=== PATIENT | female | born 1975 | race Caucasian/White ===

== ENCOUNTER 2019-03-03 11:17 | Observation (INO) | payer BC, OTHER ==
--- NOTE | 2019-03-03 11:23 | EDM.PDOC ---
ED HPI GENERAL MEDICAL PROBLEM - General Stated Complaint: HIGH BP Time Seen by Provider: 03/03/19 11:21 - History of Present Illness INITIAL COMMENTS - FREE TEXT/NARRATIVE: HISTORY AND PHYSICAL: History of present illness: Patient 43-year-old white female who presents with a concern of hypertension she 's also had some palpitations she was seen in outpatient clinic in blood pressures noted be 170/100 and was referred here she states she had had episodic hypertension before during her divorce but this improved on its own without medication or other treatment. She states she has occasionally had some vague discomfort in her left arm she does not have it at this time. She denies chest pain or tightness At this time Review of systems: As per history of present illness and below otherwise all systems reviewed and negative. Past medical history: As per history of present illness and as reviewed below otherwise noncontributory. Surgical history: As per history of present illness and as reviewed below otherwise noncontributory. Social history: No reported history of drug or alcohol abuse. Family history: As per history of present illness and as reviewed below otherwise noncontributory. Physical exam: HEENT: Atraumatic, normocephalic, pupils reactive, negative for conjunctival pallor or scleral icterus, mucous membranes moist, throat clear, neck supple, nontender, trachea midline. Lungs: Rare end expiratory wheezing noted breath sounds equal bilaterally, chest nontender. Heart: S1S2, regular, negative for clicks, rubs, or JVD. Abdomen: Soft, nondistended, nontender. Negative for masses or hepatosplenomegaly. Negative for costovertebral tenderness. Pelvis: Stable nontender. Genitourinary: Deferred. Rectal: Deferred. Extremities: Atraumatic, negative for cords or calf pain. Neurovascular unremarkable. Neuro: Awake, alert, oriented. Cranial nerves II through XII unremarkable. Cerebellum unremarkable. Motor and sensory unremarkable throughout. Exam nonfocal. Diagnostics: CBC CMP troponin PT/INR chest x-ray EKG Therapeutics: IV O2 monitor aspirin 324 mg by mouth albuterol ipratropium nebulizer Impression: #1 palpitations #2 hypertension #3 mild bronchospasm Definitive disposition and diagnosis as appropriate pending reevaluation and review of above. - Related Data Allergies Allergy/AdvReac Type Severity Reaction Status Date / Time latex Allergy Rash Verified 03/03/19 11:29 Home Meds: Home Meds . 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 ED EXAM, GENERAL - Physical Exam Exam: See Below (dictation) Course - Vital Signs Last Recorded V/S: Last Vital Signs Temp Pulse 85 03/03/19 12:04 Resp 18 03/03/19 12:04 BP 130/91 H 03/03/19 12:04 Pulse Ox 97 03/03/19 12:04 - Orders/Labs/Meds Orders: Active Orders 24 hr Category Date Time Status Cardiac Monitoring [RC] . DIRECTED Care 03/03/19 11:24 Active EKG Documentation Completion [RC] STAT Care 03/03/19 11:24 Active Oxygen Therapy, ED [RC] ASDIRECTED Care 03/03/19 11:24 Active Pulse Oximetry [RC] ASDIRECTED Care 03/03/19 11:24 Active RT Aerosol Therapy [RC] ASDIRECTED Care 03/03/19 11:26 Active B-TYPE NATRIURETIC PEPTIDE,BNP [CHEM] Stat Lab 03/03/19 11:30 Received D-DIMER QUANTITATIVE [COAG] Stat Lab 03/03/19 12:25 Ordered Sodium Chloride 0.9% [Normal Saline] 1,000 ml Med 03/03/19 11:30 Active IV STAT Sodium Chloride 0.9% [Saline Flush] Med 03/03/19 11:24 Active 10 ml FLUSH ASDIRECTED PRN Sodium Chloride 0.9% [Saline Flush] Med 03/03/19 11:24 Active 2.5 ml FLUSH ASDIRECTED PRN Saline Lock Insert [OM.PC] Stat Oth 03/03/19 11:24 Ordered Medication Orders Sodium Chloride (Normal Saline) 1,000 mls @ 125 mls/hr IV STAT ALENA Last Admin: 03/03/19 11:59 Dose: 125 mls/hr Sodium Chloride (Saline Flush) 10 ml FLUSH ASDIRECTED PRN PRN Reason: Keep Vein Open Last Admin: 03/03/19 11:59 Dose: 10 ml Sodium Chloride (Saline Flush) 2.5 ml FLUSH ASDIRECTED PRN PRN Reason: Keep Vein Open Last Admin: 03/03/19 11:59 Dose: 2.5 ml Labs: Laboratory Tests 03/03/19 03/03/19 03/03/19 Range/Units 11:30 11:30 11:30 WBC 11.19 H (4.0-11.0) K/uL RBC 5.03 (4.30-5.90) M/uL Hgb 16.2 H (12.0-16.0) g/dL Hct 46.5 H (36.0-46.0) % MCV 92.4 (80.0-98.0) fL MCH 32.2 H (27.0-32.0) pg MCHC 34.8 (31.0-37.0) g/dL RDW Std Deviation 45.0 (28.0-62.0) fl RDW Coeff of Rom 13 (11.0-15.0) % Plt Count 225 (150-400) K/uL MPV 11.70 (7.40-12.00) fL Neut % (Auto) 58.4 (48.0-80.0) % Lymph % (Auto) 33.0 (16.0-40.0) % [place] % (Auto) 6.9 (0.0-15.0) % Eos % (Auto) 1.3 (0.0-7.0) % Baso % (Auto) 0.4 (0.0-1.5) % Neut # (Auto) 6.5 H (1.4-5.7) K/uL Lymph # (Auto) 3.7 H (0.6-2.4) K/uL [place] # (Auto) 0.8 (0.0-0.8) K/uL Eos # (Auto) 0.2 (0.0-0.7) K/uL Baso # (Auto) 0.0 (0.0-0.1) K/uL Nucleated RBC % 0.0 /100WBC Nucleated RBCs # 0 K/uL INR 0.92 Sodium 137 (136-145) mmol/L Potassium 4.1 (3.5-5.1) mmol/L Chloride 102 (98-107) mmol/L Carbon Dioxide 23.5 (21.0-32.0) mmol/L BUN 14 (7.0-18.0) mg/dL Creatinine 0.9 (0.6-1.0) mg/dL Est Cr Clr Drug Dosing 85.97 mL/min Estimated GFR (MDRD) > 60.0 ml/min Glucose 112 H (74-106) mg/dL Calcium 9.0 (8.5-10.1) mg/dL Total Bilirubin 0.2 (0.2-1.0) mg/dL AST 20 (15-37) IU/L ALT 37 (14-63) IU/L Alkaline Phosphatase 77 (46-116) U/L Troponin I < 0.050 (0.000-0.056) ng/mL Total Protein 7.3 (6.4-8.2) g/dL Albumin 3.6 (3.4-5.0) g/dL Globulin 3.7 (2.6-4.0) g/dL Albumin/Globulin Ratio 1.0 (0.9-1.6) Meds: Medications Generic Name Dose Route Start Last Admin Trade Name Freq PRN Reason Stop Dose Admin Sodium Chloride 1,000 mls @ 125 mls/hr 03/03/19 11:30 03/03/19 11:59 Normal Saline IV 125 mls/hr STAT ALENA Administration Sodium Chloride 10 ml 03/03/19 11:24 03/03/19 11:59 Saline Flush FLUSH 10 ml ASDIRECTED PRN Administration Keep Vein Open Sodium Chloride 2.5 ml 03/03/19 11:24 03/03/19 11:59 Saline Flush FLUSH 2.5 ml ASDIRECTED PRN Administration Keep Vein Open Discontinued Medications Generic Name Dose Route Start Last Admin Trade Name Freq PRN Reason Stop Dose Admin Albuterol/Ipratropium 3 ml 03/03/19 11:26 03/03/19 11:39 Duoneb 3.0-0.5 Mg/3 Ml NEB 03/03/19 11:27 3 ml ONETIME ONE Administration Aspirin 324 mg 03/03/19 11:24 03/03/19 11:57 Aspirin PO 03/03/19 11:25 324 mg ONETIME ONE Administration Departure - Departure Time of Disposition: 12:25 Disposition: Refer to Observation Condition: Good Clinical Impression: Palpitations, Bronchospasm - Discharge Information - My Orders Last 24 Hours: My Active Orders 03/03/19 11:24 Cardiac Monitoring [RC] . DIRECTED EKG Documentation Completion [RC] STAT Oxygen Therapy, ED [RC] ASDIRECTED Pulse Oximetry [RC] ASDIRECTED Sodium Chloride 0.9% [Saline Flush] 10 ml FLUSH ASDIRECTED PRN Sodium Chloride 0.9% [Saline Flush] 2.5 ml FLUSH ASDIRECTED PRN Saline Lock Insert [OM.PC] Stat 03/03/19 11:26 RT Aerosol Therapy [RC] ASDIRECTED 03/03/19 11:30 B-TYPE NATRIURETIC PEPTIDE,BNP [CHEM] Stat Sodium Chloride 0.9% [Normal Saline] 1,000 ml IV STAT 03/03/19 12:25 D-DIMER QUANTITATIVE [COAG] Stat - Assessment/Plan Last 24 Hours: My Active Orders 03/03/19 11:24 Cardiac Monitoring [RC] . DIRECTED EKG Documentation Completion [RC] STAT Oxygen Therapy, ED [RC] ASDIRECTED Pulse Oximetry [RC] ASDIRECTED Sodium Chloride 0.9% [Saline Flush] 10 ml FLUSH ASDIRECTED PRN Sodium Chloride 0.9% [Saline Flush] 2.5 ml FLUSH ASDIRECTED PRN Saline Lock Insert [OM.PC] Stat 03/03/19 11:26 RT Aerosol Therapy [RC] ASDIRECTED 03/03/19 11:30 B-TYPE NATRIURETIC PEPTIDE,BNP [CHEM] Stat Sodium Chloride 0.9% [Normal Saline] 1,000 ml IV STAT 03/03/19 12:25 D-DIMER QUANTITATIVE [COAG] Stat
[2019-03-03] MEDS ORDERED: Sodium Chloride 0.9% 2.5 ML Syringe FLUSH PRN (11:24)
[2019-03-03] MEDS ORDERED: Sodium Chloride 0.9% 10 ML Syringe FLUSH PRN (11:24)
[2019-03-03] MEDS ORDERED: Aspirin 81 MG Tab.Chew PO ONE (11:24)
[2019-03-03] MEDS ORDERED: Albuterol/Ipratropium 3.0-0.5 MG/3 ML Neb Soln NEB ONE (11:26)
[2019-03-03] MEDS ORDERED: Sodium Chloride 0.9% 1,000 ML IV SCH (11:30)
[2019-03-03 12:11] LABS: BLOOD UREA NITROGEN,BUN 14 mg/dL (7.0-18.0); CARBON DIOXIDE,CO2 23.5 mmol/L (21.0-32.0); CHLORIDE,CL 102 mmol/L (98-107); GLUCOSE RANDOM 112 mg/dL (74-106); POTASSIUM,K 4.1 mmol/L (3.5-5.1); SODIUM,NA 137 mmol/L (136-145)
--- NOTE | 2019-03-03 12:16 | CR ---
Chest: Frontal view of the chest was obtained. Study performed utilizing portable technique. Comparison: Prior chest x-ray of 01/07/18. Heart size and mediastinum are normal. Lungs are clear. Bony structures are grossly intact. Impression: Nothing acute is appreciated on portable chest x-ray. Diagnostic code #1 MTDD
--- NOTE | 2019-03-03 14:23 | PCM.HP.2 ---
H&P History of Present Illness - General Date of Service: 03/03/19 Admit Problem/Dx: Admission Diagnosis/Problem Admission Diagnosis/Problem Palpitations - History of Present Illness Initial Comments - Free Text/Narative: 43 yo female who presents with chest pain, palpitations and shortness of breath. She describes the pain as a pressure. She has reported intermittent palpitations over the past few days. Her blood pressure was noted to be 170s/ 90s. 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 She does report smoking but has no intentions of quitting. Chest Pain Score (Numeric/FACES): 3 - Related Data Allergies/Adverse Reactions: Allergies Allergy/AdvReac Type Severity Reaction Status Date / Time latex Allergy Rash Verified 03/03/19 15:40 Home Medications: Home Meds . 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: - Infectious Disease History Infectious Disease History: Reports: Chicken Pox - Past Surgical History Female Surgical History: Reports: Other (See Below) Other Female Surgeries/Procedures: bladder sling Dermatological Surgical History: Reports: Other (See Below) Social & Family History - Family History Family Medical History: Noncontributory Oncologic: Reports: Esophageal, Lung, Non-Hodgkin's Lymphoma, Ovarian - Tobacco Use Smoking Status *Q: Current Every Day Smoker Years of Tobacco use: 25 Packs/Tins Daily: 2 - Caffeine Use Caffeine Use: Reports: Coffee, Soda - Recreational Drug Use Recreational Drug Use: No H&P Review of Systems - Review of Systems: Review Of Systems: ROS reveals no pertinent complaints other than HPI. Exam - Exam Exam: See Below - Vital Signs Vital Signs: Last Vital Signs Temp Pulse 88 03/03/19 13:34 Resp 20 03/03/19 13:34 BP 153/90 H 03/03/19 13:34 Pulse Ox 97 03/03/19 13:34 Weight: 104.326 kg - Exam General: Alert, Oriented HEENT: Mucosa Moist & [place] Lungs: Clear to Auscultation, Normal Respiratory Effort Cardiovascular: Regular Rate, Regular Rhythm GI/Abdominal Exam: Soft, Non-Tender Extremities: Non-Tender, No Pedal Edema Skin: Warm, Dry, Intact - Patient Data Lab Results Last 24 hrs: Laboratory Results - last 24 hr 03/03/19 03/03/19 03/03/19 Range/Units 11:30 11:30 11:30 WBC 11.19 H (4.0-11.0) K/uL RBC 5.03 (4.30-5.90) M/uL Hgb 16.2 H (12.0-16.0) g/dL Hct 46.5 H (36.0-46.0) % MCV 92.4 (80.0-98.0) fL MCH 32.2 H (27.0-32.0) pg MCHC 34.8 (31.0-37.0) g/dL RDW Std Deviation 45.0 (28.0-62.0) fl RDW Coeff of Rom 13 (11.0-15.0) % Plt Count 225 (150-400) K/uL MPV 11.70 (7.40-12.00) fL Neut % (Auto) 58.4 (48.0-80.0) % Lymph % (Auto) 33.0 (16.0-40.0) % Esmeralda % (Auto) 6.9 (0.0-15.0) % Eos % (Auto) 1.3 (0.0-7.0) % Baso % (Auto) 0.4 (0.0-1.5) % Neut # (Auto) 6.5 H (1.4-5.7) K/uL Lymph # (Auto) 3.7 H (0.6-2.4) K/uL Esmeralda # (Auto) 0.8 (0.0-0.8) K/uL Eos # (Auto) 0.2 (0.0-0.7) K/uL Baso # (Auto) 0.0 (0.0-0.1) K/uL Nucleated RBC % 0.0 /100WBC Nucleated RBCs # 0 K/uL INR 0.92 D-Dimer, Quantitative (0.0-0.50) mg/L FEU Sodium 137 (136-145) mmol/L Potassium 4.1 (3.5-5.1) mmol/L Chloride 102 (98-107) mmol/L Carbon Dioxide 23.5 (21.0-32.0) mmol/L BUN 14 (7.0-18.0) mg/dL Creatinine 0.9 (0.6-1.0) mg/dL Est Cr Clr Drug Dosing 85.97 mL/min Estimated GFR (MDRD) > 60.0 ml/min Glucose 112 H (74-106) mg/dL Calcium 9.0 (8.5-10.1) mg/dL Total Bilirubin 0.2 (0.2-1.0) mg/dL AST 20 (15-37) IU/L ALT 37 (14-63) IU/L Alkaline Phosphatase 77 (46-116) U/L Troponin I < 0.050 (0.000-0.056) ng/mL B-Natriuretic Peptide (<100) PG/ML Total Protein 7.3 (6.4-8.2) g/dL Albumin 3.6 (3.4-5.0) g/dL Globulin 3.7 (2.6-4.0) g/dL Albumin/Globulin Ratio 1.0 (0.9-1.6) 03/03/19 03/03/19 Range/Units 11:30 11:30 WBC (4.0-11.0) K/uL RBC (4.30-5.90) M/uL Hgb (12.0-16.0) g/dL Hct (36.0-46.0) % MCV (80.0-98.0) fL MCH (27.0-32.0) pg MCHC (31.0-37.0) g/dL RDW Std Deviation (28.0-62.0) fl RDW Coeff of Rom (11.0-15.0) % Plt Count (150-400) K/uL MPV (7.40-12.00) fL Neut % (Auto) (48.0-80.0) % Lymph % (Auto) (16.0-40.0) % Esmeralda % (Auto) (0.0-15.0) % Eos % (Auto) (0.0-7.0) % Baso % (Auto) (0.0-1.5) % Neut # (Auto) (1.4-5.7) K/uL Lymph # (Auto) (0.6-2.4) K/uL Esmeralda # (Auto) (0.0-0.8) K/uL Eos # (Auto) (0.0-0.7) K/uL Baso # (Auto) (0.0-0.1) K/uL Nucleated RBC % /100WBC Nucleated RBCs # K/uL INR D-Dimer, Quantitative 0.45 (0.0-0.50) mg/L FEU Sodium (136-145) mmol/L Potassium (3.5-5.1) mmol/L Chloride (98-107) mmol/L Carbon Dioxide (21.0-32.0) mmol/L BUN (7.0-18.0) mg/dL Creatinine (0.6-1.0) mg/dL Est Cr Clr Drug Dosing mL/min Estimated GFR (MDRD) ml/min Glucose (74-106) mg/dL Calcium (8.5-10.1) mg/dL Total Bilirubin (0.2-1.0) mg/dL AST (15-37) IU/L ALT (14-63) IU/L Alkaline Phosphatase (46-116) U/L Troponin I (0.000-0.056) ng/mL B-Natriuretic Peptide 18 (<100) PG/ML Total Protein (6.4-8.2) g/dL Albumin (3.4-5.0) g/dL Globulin (2.6-4.0) g/dL Albumin/Globulin Ratio (0.9-1.6) Result Diagrams: 03/03/19 11:30 03/03/19 11:30 Problem List Initiated/Reviewed/Updated: Yes Orders Last 24hrs: Active Orders 24 hr Category Date Time Status Patient Status [ADT] Stat ADT 03/03/19 12:28 Active Cardiac Monitoring [RC] . DIRECTED Care 03/03/19 11:24 Active EKG Documentation Completion [RC] STAT Care 03/03/19 11:24 Active Oxygen Therapy, ED [RC] ASDIRECTED Care 03/03/19 11:24 Active Pulse Oximetry [RC] ASDIRECTED Care 03/03/19 11:24 Active RT Aerosol Therapy [RC] ASDIRECTED Care 03/03/19 11:26 Active Telemetry Monitoring [Cardiac Monitoring] [RC] . Care 03/03/19 13:33 Active DIRECTED Sodium Chloride 0.9% [Normal Saline] 1,000 ml Med 03/03/19 11:30 Active IV STAT Sodium Chloride 0.9% [Saline Flush] Med 03/03/19 11:24 Active 10 ml FLUSH ASDIRECTED PRN Sodium Chloride 0.9% [Saline Flush] Med 03/03/19 11:24 Active 2.5 ml FLUSH ASDIRECTED PRN Saline Lock Insert [OM.PC] Stat Oth 03/03/19 11:24 Ordered Medication Orders Sodium Chloride (Normal Saline) 1,000 mls @ 125 mls/hr IV STAT ALENA Last Admin: 03/03/19 11:59 Dose: 125 mls/hr Sodium Chloride (Saline Flush) 10 ml FLUSH ASDIRECTED PRN PRN Reason: Keep Vein Open Last Admin: 03/03/19 11:59 Dose: 10 ml Sodium Chloride (Saline Flush) 2.5 ml FLUSH ASDIRECTED PRN PRN Reason: Keep Vein Open Last Admin: 03/03/19 11:59 Dose: 2.5 ml Assessment/Plan Comment:: 43 yo female admitted with chest pain and palpitations. She was monitored overnight with no events on telemetry. She ruled out for acute coronary syndrome with negative serial cardiac enzymes and EKG. She was started on Metoprolol 25mg BID for better blood pressure control. She was given smoking cessation education but has no intentions of quitting. She is to follow up with Dr. Houston in residency clinic and was referred to outpatient stress testing and Zio patch.
[2019-03-03] MEDS ORDERED: Acetaminophen 325 MG Tab PO PRN (14:29)
[2019-03-03] MEDS: Metoprolol Tartrate 25 MG Tab PO SCH (15:01)
[2019-03-04] MEDS: Metoprolol Tartrate 25 MG Tab PO SCH (01:53)
== END 2019-03-04 11:50 | disposition home or self-care (01) ==
LOC: MW.ED 11:17 → MW.MS 12:28
PROVIDERS: ADMIT Internal Medicine; ATTEND Internal Medicine
DX: R00.2 Palpitations (principal); R07.89 Other chest pain; I10 Essential (primary) hypertension; F17.200 Nicotine dependence, unspecified, uncomplicated; Z91.040 Latex allergy status
CPT/HCPCS: 36415; 71045; 80053; 83880; 84484; 85025; 85379; 85610; 93005; 94640; 96360; 96361; 99285; A9270; G0378; J7040; J7620-GY

== ENCOUNTER 2019-03-06 13:20 | Emergency (ER) | payer BC ==
[2019-03-06] MEDS ORDERED: Sodium Chloride 0.9% 10 ML Syringe FLUSH PRN (13:27)
[2019-03-06] MEDS ORDERED: Sodium Chloride 0.9% 2.5 ML Syringe FLUSH PRN (13:27)
--- NOTE | 2019-03-06 13:32 | EDM.PDOC ---
ED HPI GENERAL MEDICAL PROBLEM - General Chief Complaint: Chest Pain Stated Complaint: CHEST DICOMFORT Time Seen by Provider: 03/06/19 13:24 - History of Present Illness INITIAL COMMENTS - FREE TEXT/NARRATIVE: HISTORY AND PHYSICAL: History of present illness: Patient's 43-year-old female presents with a concern of neck and left arm discomfort she was recently seen and admitted for palpitations/atypical chest pain she was put on metoprolol for elevated blood pressure she is currently on a Holter monitor. Her symptoms have improved since arrival. Review of systems: As per history of present illness and below otherwise all systems reviewed and negative. Past medical history: As per history of present illness and as reviewed below otherwise noncontributory. Surgical history: As per history of present illness and as reviewed below otherwise noncontributory. Social history: No reported history of drug or alcohol abuse. Family history: As per history of present illness and as reviewed below otherwise noncontributory. Physical exam: HEENT: Atraumatic, normocephalic, pupils reactive, negative for conjunctival pallor or scleral icterus, mucous membranes moist, throat clear, neck supple, nontender, trachea midline. Lungs: Clear to auscultation, breath sounds equal bilaterally, chest nontender. Heart: S1S2, regular, negative for clicks, rubs, or JVD. Abdomen: Soft, nondistended, nontender. Negative for masses or hepatosplenomegaly. Negative for costovertebral tenderness. Pelvis: Stable nontender. Genitourinary: Deferred. Rectal: Deferred. Extremities: Atraumatic, negative for cords or calf pain. Neurovascular unremarkable. Neuro: Awake, alert, oriented. Cranial nerves II through XII unremarkable. Cerebellum unremarkable. Motor and sensory unremarkable throughout. Exam nonfocal. Diagnostics: CBC CMP troponin PT/INR chest x-ray EKG CT brain Therapeutics: None Impression: #1 medical screening exam #2 history of hypertension #3 history of palpitations/ atypical chest pain Definitive disposition and diagnosis as appropriate pending reevaluation and review of above. 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 ED EXAM, GENERAL - Physical Exam Exam: See Below (See dictation) Course - Vital Signs Last Recorded V/S: Last Vital Signs Temp 36.1 C 03/06/19 13:28 Pulse 83 03/06/19 14:13 Resp 13 03/06/19 14:13 BP 156/106 H 03/06/19 14:13 Pulse Ox 95 03/06/19 14:13 - Orders/Labs/Meds Orders: Active Orders 24 hr Category Date Time Status Cardiac Monitoring [RC] . DIRECTED Care 03/06/19 13:27 Active EKG Documentation Completion [RC] STAT Care 03/06/19 13:27 Active Oxygen Therapy, ED [RC] ASDIRECTED Care 03/06/19 13:27 Active Chest 1V Frontal [CR] Stat Exams 03/06/19 13:27 Taken Head wo Cont [CT] Stat Exams 03/06/19 13:28 Taken COMPREHENSIVE METABOLIC PN,CMP [CHEM] Stat Lab 03/06/19 13:45 Received TROPONIN I [CHEM] Stat Lab 03/06/19 13:45 Received UA RFX DARI AND CULT IF INDIC [URIN] Stat Lab 03/06/19 14:15 Received Labs: Laboratory Tests 03/06/19 03/06/19 Range/Units 13:45 13:45 WBC 9.65 (4.0-11.0) K/uL RBC 4.78 (4.30-5.90) M/uL Hgb 15.1 (12.0-16.0) g/dL Hct 43.4 (36.0-46.0) % MCV 90.8 (80.0-98.0) fL MCH 31.6 (27.0-32.0) pg MCHC 34.8 (31.0-37.0) g/dL RDW Std Deviation 43.5 (28.0-62.0) fl RDW Coeff of Rom 13 (11.0-15.0) % Plt Count 205 (150-400) K/uL MPV 11.20 (7.40-12.00) fL Neut % (Auto) 57.0 (48.0-80.0) % Lymph % (Auto) 34.4 (16.0-40.0) % [place] % (Auto) 7.0 (0.0-15.0) % Eos % (Auto) 1.2 (0.0-7.0) % Baso % (Auto) 0.4 (0.0-1.5) % Neut # (Auto) 5.5 (1.4-5.7) K/uL Lymph # (Auto) 3.3 H (0.6-2.4) K/uL [place]rill # (Auto) 0.7 (0.0-0.8) K/uL Eos # (Auto) 0.1 (0.0-0.7) K/uL Baso # (Auto) 0.0 (0.0-0.1) K/uL Nucleated RBC % 0.0 /100WBC Nucleated RBCs # 0 K/uL INR 0.95 Meds: Medications Discontinued Medications Generic Name Dose Route Start Last Admin Trade Name Freq PRN Reason Stop Dose Admin Sodium Chloride 10 ml 03/06/19 13:27 Saline Flush FLUSH ASDIRECTED PRN Keep Vein Open Sodium Chloride 2.5 ml 03/06/19 13:27 Saline Flush FLUSH ASDIRECTED PRN Keep Vein Open Departure - Departure Time of Disposition: 14:28 Disposition: Home, Self-Care 01 Condition: Good Clinical Impression: Encounter for medical screening examination, Palpitations - Discharge Information Referrals: PCP,Unobtain [Primary Care Provider] - Forms: ED Department Discharge Additional Instructions: The following information is given to patients seen in the emergency department who are being discharged to home. This information is to outline your options for follow-up care. We provide all patients seen in our emergency department with a follow-up referral. The need for follow-up, as well as the timing and circumstances, are variable depending upon the specifics of your emergency department visit. If you don't have a primary care physician on staff, we will provide you with a referral. We always advise you to contact your personal physician following an emergency department visit to inform them of the circumstance of the visit and for follow-up with them and/or the need for any referrals to a consulting specialist. The emergency department will also refer you to a specialist when appropriate. This referral assures that you have the opportunity for followup care with a specialist. All of these measure are taken in an effort to provide you with optimal care, which includes your followup. Under all circumstances we always encourage you to contact your private physician who remains a resource for coordinating your care. When calling for followup care, please make the office aware that this follow-up is from your recent emergency room visit. If for any reason you are refused follow-up, please contact the [facility] emergency department at and asked to speak to the emergency department charge nurse. Continue current medications follow-up primary medical doctor as needed as discussed and return as needed as discussed - My Orders Last 24 Hours: My Active Orders 03/06/19 13:27 Cardiac Monitoring [RC] . DIRECTED EKG Documentation Completion [RC] STAT Oxygen Therapy, ED [RC] ASDIRECTED Chest 1V Frontal [CR] Stat 03/06/19 13:28 Head wo Cont [CT] Stat 03/06/19 13:45 COMPREHENSIVE METABOLIC PN,CMP [CHEM] Stat TROPONIN I [CHEM] Stat 03/06/19 14:15 UA RFX DARI AND CULT IF INDIC [URIN] Stat - Assessment/Plan Last 24 Hours: My Active Orders 03/06/19 13:27 Cardiac Monitoring [RC] . DIRECTED EKG Documentation Completion [RC] STAT Oxygen Therapy, ED [RC] ASDIRECTED Chest 1V Frontal [CR] Stat 03/06/19 13:28 Head wo Cont [CT] Stat 03/06/19 13:45 COMPREHENSIVE METABOLIC PN,CMP [CHEM] Stat TROPONIN I [CHEM] Stat 03/06/19 14:15 UA RFX DARI AND CULT IF INDIC [URIN] Stat
[2019-03-06 14:23] LABS: BLOOD UREA NITROGEN,BUN 16 mg/dL (7.0-18.0); CARBON DIOXIDE,CO2 25.3 mmol/L (21.0-32.0); CHLORIDE,CL 103 mmol/L (98-107); GLUCOSE RANDOM 128 mg/dL (74-106); POTASSIUM,K 3.6 mmol/L (3.5-5.1); SODIUM,NA 140 mmol/L (136-145)
--- NOTE | 2019-03-06 14:32 | CR ---
Chest: Frontal view of the chest was obtained. Comparison: Prior chest x-ray of 03/03/19. Heart size and mediastinum are normal. Lungs are clear. Bony structures are grossly intact. Impression: Nothing acute is seen on frontal chest x-ray. Diagnostic code #1 MTDD
--- NOTE | 2019-03-06 14:33 | CT ---
Head CT Technique: Multiple axial sections through the brain were obtained. Intravenous contrast was not utilized. Comparison: No prior intracranial imaging is available. Findings: Ventricles along with basal cisterns and sulci over the convexities appear within normal limits for the patient's age. No abnormal parenchymal densities are seen. No evidence of intracranial hemorrhage. No midline shift or mass effect is seen. Bone window settings were reviewed which shows no acute calvarial abnormality. Visualized sinuses are clear. No acute calvarial abnormality is seen. Impression: Nothing acute is appreciated on noncontrast head CT exam. Diagnostic code #1 MTDD
== END 2019-03-06 15:32 | disposition home or self-care (01) ==
LOC: MW.ED 13:20
DX: R00.2 Palpitations (principal); I10 Essential (primary) hypertension; M79.602 Pain in left arm; M54.2 Cervicalgia; Z91.040 Latex allergy status
CPT/HCPCS: 36415; 70450; 70450-26; 71045; 71045-26; 80053; 81003; 84484; 85025; 85610; 93005; 99284-25

== ENCOUNTER 2019-06-16 10:01 | Emergency (ER) | payer BC ==
[2019-06-16] MEDS ORDERED: Sodium Chloride 0.9% 1,000 ML IV ONE (10:21)
[2019-06-16] MEDS ORDERED: Ondansetron 4 MG/2 ML SDV IVPUSH ONE (10:21)
--- NOTE | 2019-06-16 11:06 | EDM.PDOC ---
ED HPI GENERAL MEDICAL PROBLEM - General Chief Complaint: POURER METAL Problem Stated Complaint: VOMITTING PAST 5 DAYS. APPROX 9 WKS PREG. Time Seen by Provider: 06/16/19 10:18 Source of Information: Reports: Patient History Limitations: Reports: No Limitations - History of Present Illness INITIAL COMMENTS - FREE TEXT/NARRATIVE: HISTORY AND PHYSICAL: History of present illness: Patient is a 43-year-old female who presents to the emergency room with complaints of nausea and vomiting in . She states she has not been able to keep much down over the past 4 days. Patient denies any fever, chills, headache, change in vision, syncope or near syncope. Denies any chest pain, back pain, shortness of breath or cough. Denies any abdominal pain, nausea, vomiting, diarrhea, constipation or dysuria. Denies any vaginal bleeding, discharge or cramping. Currently 9 weeks gestation. Has not noted any blood in urine or stool. States Dr Brown has confirmed IUP with transvaginal US, has no related concerns other than the vomiting. , P: 2. History of hyperemesis gravidarum Review of systems: As per history of present illness and below otherwise all systems reviewed and negative. Past medical history: As per history of present illness and as reviewed below otherwise noncontributory. Surgical history: As per history of present illness and as reviewed below otherwise noncontributory. Social history: See social history for further information Family history: As per history of present illness and as reviewed below otherwise noncontributory. Physical exam: General: Well-developed and well-nourished 43-year-old female. Alert and oriented. Nontoxic-appearing and in no acute distress. HEENT: Atraumatic, normocephalic, pupils equal and reactive bilaterally, negative for conjunctival pallor or scleral icterus, mucous membranes moist, TMs normal bilaterally, throat clear, neck supple, nontender, trachea midline. No drooling or trismus noted. No meningeal signs. No hot potato voice noted. Lungs: Clear to auscultation, breath sounds equal bilaterally, chest nontender. Heart: S1S2, regular rate and rhythm without overt murmur Abdomen: Soft, nondistended, nontender. Negative for masses or hepatosplenomegaly. Negative for costovertebral tenderness. Pelvis: Stable nontender. Skin: Intact, warm, dry. No lesions or rashes noted. Extremities: Atraumatic, moves all extremities per self without difficulty or deficits, negative for cords or calf pain. Neurovascular unremarkable. Neuro: Awake, alert, oriented. Cranial nerves II through XII unremarkable. Cerebellum unremarkable. Motor and sensory unremarkable throughout. Exam nonfocal. Notes: No vomiting while here in the ED. VSS. Lab work is unremarkable with the exception of an early UTI. We will treat this. She does have an appointment next week with Dr. Brown for POURER METAL follow-up. We will give her Zofran for home as she felt this immensely improved her symptoms while here. Supportive care measures were reviewed and discussed. Voices understanding and is agreeable to plan of care. Denies any further questions or concerns at this time. Diagnostics: CBC, CMP, UA, hCG U Therapeutics: IV fluid, Zofran Prescription: Zofran Impression: Nausea and vomiting in UTI Plan: 1. Please start and/or continue to take your vitamin with folic acid once daily. 2. Small frequent sips of fluids and use the Zofran as needed 3. Tylenol as needed for pain management. 4. Follow up with your POURER METAL as we discussed. Return to the ED as needed and as discussed. Definitive disposition and diagnosis as appropriate pending reevaluation and review of above. - Related Data Allergies Allergy/AdvReac Type Severity Reaction Status Date / Time latex Allergy Rash Verified 03/06/19 13:31 Home Meds: Home Meds Metoprolol Tartrate [Lopressor] 25 mg PO Q12H #60 tablet 03/04/19 [Rx] Ondansetron [Zofran ODT] 4 mg PO Q6H PRN #15 tab.dis 06/16/19 [Rx] cephALEXin [Keflex] 500 mg PO BID 7 Days #14 cap 06/16/19 [Rx] Past Medical History - Past Health History Medical/Surgical History: Denies Medical/Surgical History HEENT History: Reports: None Cardiovascular History: Reports: None Respiratory History: Reports: Bronchitis, Recurrent Gastrointestinal History: Reports: None Genitourinary History: Reports: Other (See Below) Other Genitourinary History: Bladder Hamm[place], 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 POURER METAL History: Reports: 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 History: Reports: None Neurological History: Reports: None Psychiatric History: Reports: None Endocrine/Metabolic History: Reports: None Hematologic History: Reports: None Immunologic History: Reports: None Oncologic (Cancer) History: Reports: None Dermatologic History: Reports: None - Infectious Disease History Infectious Disease History: Reports: Chicken Pox - Past Surgical History Female Surgical History: Reports: Other (See Below) Other Female Surgeries/Procedures: bladder sling Dermatological Surgical History: Reports: Other (See Below) Social & Family History - Family History Family Medical History: Noncontributory Oncologic: Reports: Esophageal, Lung, Non-Hodgkin's Lymphoma, Ovarian - Caffeine Use Caffeine Use: Reports: Coffee, Soda ED ROS GENERAL - Review of Systems Review Of Systems: Comprehensive ROS is negative, except as noted in HPI. ED EXAM - Physical Exam Exam: See Below (SEe dictation) Course - Vital Signs Last Recorded V/S: Last Vital Signs Temp 94.4 F L 06/16/19 11:28 Pulse 83 06/16/19 11:28 Resp 20 06/16/19 11:28 BP 155/97 H 06/16/19 11:28 Pulse Ox 99 06/16/19 11:28 - Orders/Labs/Meds Labs: Laboratory Tests 06/16/19 06/16/19 06/16/19 Range/Units 11:03 11:34 11:34 WBC 11.16 H (4.0-11.0) K/uL RBC 5.01 (4.30-5.90) M/uL Hgb 15.9 (12.0-16.0) g/dL Hct 44.5 (36.0-46.0) % MCV 88.8 (80.0-98.0) fL MCH 31.7 (27.0-32.0) pg MCHC 35.7 (31.0-37.0) g/dL RDW Std Deviation 42.6 (28.0-62.0) fl RDW Coeff of Rom 13 (11.0-15.0) % Plt Count 221 (150-400) K/uL MPV 11.70 (7.40-12.00) fL Neut % (Auto) 66.2 (48.0-80.0) % Lymph % (Auto) 24.7 (16.0-40.0) % [place] % (Auto) 7.8 (0.0-15.0) % Eos % (Auto) 0.9 (0.0-7.0) % Baso % (Auto) 0.4 (0.0-1.5) % Neut # (Auto) 7.4 H (1.4-5.7) K/uL Lymph # (Auto) 2.8 H (0.6-2.4) K/uL [place] # (Auto) 0.9 H (0.0-0.8) K/uL Eos # (Auto) 0.1 (0.0-0.7) K/uL Baso # (Auto) 0.1 (0.0-0.1) K/uL Nucleated RBC % 0.0 /100WBC Nucleated RBCs # 0 K/uL Sodium 137 (136-145) mmol/L Potassium 4.0 (3.5-5.1) mmol/L Chloride 100 (98-107) mmol/L Carbon Dioxide 23.7 (21.0-32.0) mmol/L BUN 11 (7.0-18.0) mg/dL Creatinine 0.7 (0.6-1.0) mg/dL Est Cr Clr Drug Dosing 114.37 mL/min Estimated GFR (MDRD) > 60.0 ml/min Glucose 98 (74-106) mg/dL Calcium 9.2 (8.5-10.1) mg/dL Total Bilirubin 0.4 (0.2-1.0) mg/dL AST 25 (15-37) IU/L ALT 43 (14-63) IU/L Alkaline Phosphatase 71 (46-116) U/L Total Protein 7.4 (6.4-8.2) g/dL Albumin 3.4 (3.4-5.0) g/dL Globulin 4.0 (2.6-4.0) g/dL Albumin/Globulin Ratio 0.9 (0.9-1.6) Urine Color YELLOW Urine Appearance CLEAR Urine pH 5.5 (5.0-8.0) Ur Specific [place] >= 1.030 (1.001-1.035) Urine Protein NEGATIVE (NEGATIVE) mg/dL Urine Glucose (UA) NEGATIVE (NEGATIVE) mg/dL Urine Ketones NEGATIVE (NEGATIVE) mg/dL Urine Occult Blood NEGATIVE (NEGATIVE) Urine Nitrite NEGATIVE (NEGATIVE) Urine Bilirubin NEGATIVE (NEGATIVE) Urine Urobilinogen 0.2 (<2.0) EU/dL Ur Leukocyte Esterase NEGATIVE (NEGATIVE) Urine RBC NONE SEEN (0-2/HPF) Urine WBC 0-1 (0-5/HPF) Ur Epithelial Cells MODERATE (NONE-FEW) Urine Bacteria 1+ H (NEGATIVE) Urine Mucus MODERATE (NONE-MOD) Meds: Medications Discontinued Medications Generic Name Dose Route Start Last Admin Trade Name Freq PRN Reason Stop Dose Admin Sodium Chloride 1,000 mls @ 999 mls/hr 06/16/19 10:21 06/16/19 11:36 Normal Saline IV 06/16/19 11:21 999 mls/hr STAT ONE Administration Ondansetron HCl 4 mg 06/16/19 10:21 06/16/19 11:36 Zofran IVPUSH 06/16/19 10:22 4 mg ONETIME ONE Administration Departure - Departure Time of Disposition: 12:45 Disposition: Home, Self-Care 01 Clinical Impression: Nausea/vomiting in Urinary tract infection Qualifiers: Urinary tract infection type: acute cystitis Hematuria presence: without hematuria Qualified Code(s): N30.00 - Acute cystitis without hematuria - Discharge Information Prescriptions: cephALEXin [Keflex] 500 mg PO BID 7 Days #14 cap Ondansetron [Zofran ODT] 4 mg PO Q6H PRN #15 tab.dis PRN Reason: Nausea Referrals: Choco Brown MD [Primary Care Provider] - Forms: ED Department Discharge Additional Instructions: The following information is given to patients seen in the emergency department who are being discharged to home. This information is to outline your options for follow-up care. We provide all patients seen in our emergency department with a follow-up referral. The need for follow-up, as well as the timing and circumstances, are variable depending upon the specifics of your emergency department visit. If you don't have a primary care physician on staff, we will provide you with a referral. We always advise you to contact your personal physician following an emergency department visit to inform them of the circumstance of the visit and for follow-up with them and/or the need for any referrals to a consulting specialist. The emergency department will also refer you to a specialist when appropriate. This referral assures that you have the opportunity for follow-up care with a specialist. All of these measure are taken in an effort to provide you with optimal care, which includes your follow-up. Under all circumstances we always encourage you to contact your private physician who remains a resource for coordinating your care. When calling for follow-up care, please make the office aware that this follow-up is from your recent emergency room visit. If for any reason you are refused follow-up, please contact the [facility] Emergency Department at and asked to speak to the emergency department charge nurse. [facility] [address] [place] [id number] [facility] [address] [place] [address] 1. Please start and/or continue to take your vitamin with folic acid once daily. 2. Small frequent sips of fluids and use the Zofran as needed 3. Tylenol as needed for pain management. 4. Follow up with your POURER METAL as we discussed. Return to the ED as needed and as discussed. Sepsis Event Note - Focused Exam Vital Signs: Vital Signs Temp Pulse Resp BP Pulse Ox 06/16/19 11:28 94.4 F L 83 20 155/97 H 99 Date Exam was Performed: 06/16/19 Time Exam was Performed: 12:41
[2019-06-16 12:13] LABS: BLOOD UREA NITROGEN,BUN 11 mg/dL (7.0-18.0); CARBON DIOXIDE,CO2 23.7 mmol/L (21.0-32.0); CHLORIDE,CL 100 mmol/L (98-107); GLUCOSE RANDOM 98 mg/dL (74-106); SODIUM,NA 137 mmol/L (136-145)
== END 2019-06-16 12:56 | disposition home or self-care (01) ==
LOC: MW.ED 10:01
DX: O23.11 Infections of bladder in pregnancy, first trimester (principal); O09.521 Supervision of elderly multigravida, first trimester; Z3A.09 9 weeks gestation of pregnancy; Z91.040 Latex allergy status
CPT/HCPCS: 36415; 80053; 81001; 85025; 96361; 96374; 99284; J2405; J7030

== ENCOUNTER 2019-07-05 15:27 | Emergency (ER) | payer BC ==
[2019-07-05] MEDS ORDERED: Ondansetron 4 MG/2 ML SDV IVPUSH ONE (16:12)
[2019-07-05] MEDS ORDERED: Sodium Chloride 0.9% 1,000 ML IV ONE (16:12)
--- NOTE | 2019-07-05 16:18 | EDM.PDOC ---
ED HPI GENERAL MEDICAL PROBLEM - General Chief Complaint: Genitourinary Problem Stated Complaint: POSSIBLE UTI Time Seen by Provider: 07/05/19 15:42 Source of Information: Reports: Patient History Limitations: Reports: No Limitations - History of Present Illness INITIAL COMMENTS - FREE TEXT/NARRATIVE: HISTORY AND PHYSICAL: History of present illness: Patient is a 43-year-old female who presents to the ED today for concern of possible urinary tract infection. Patient states she was diagnosed with a urinary tract infection approximately 2 weeks ago and was given an antibiotic for it in the ED. Patient states at that time she was not symptomatic. Patient states she finished the antibiotic but started having bladder spasms and pain yesterday. Patient states she is 14 weeks in gestation and sees Dr. Brown and has had ultrasounds confirming baby in the uterus and heartbeat. Patient states she just saw him 2 to 3 weeks ago and that everything looked okay at that time. Patient denies any vaginal bleeding or change in discharge. Patient states when she goes to urinate she has pain in her bladder. Patient states she has had urinary tract infection in the past which had similar symptoms. Patient states she has a history of hyperemesis gravidarum during this and is been on Zofran but has been vomiting since onset of the bladder spasms and has had a small amount of water today. Patient denies any other symptoms or concerns. Patient denies fever, chills, chest pain, shortness of breath, or cough. Denies headache, neck stiff ness, change in vision, syncope, or near syncope. Denies nausea, vomiting, abdominal pain, diarrhea, constipation, or dysuria. Has not noted any blood in urine or stool. Review of systems: As per history of present illness and below otherwise all systems reviewed and negative. Past medical history: As per history of present illness and as reviewed below otherwise noncontributory. Surgical history: As per history of present illness and as reviewed below otherwise noncontributory. Social history: See social history for further information Family history: As per history of present illness and as reviewed below otherwise noncontributory. Physical exam: General: Patient is alert, oriented, and in no acute distress. Patient sitting comfortably on exam table. HEENT: Atraumatic, normocephalic, pupils equal and reactive bilaterally, negative for conjunctival pallor or scleral icterus, mucous membranes moist, TMs normal bilaterally, throat clear, neck supple, nontender, trachea midline. No drooling or trismus noted. No meningeal signs. No hot potato voice noted. Lungs: Clear to auscultation, breath sounds equal bilaterally, chest nontender. Heart: S1S2, regular rate and rhythm without overt murmur Abdomen: Soft, nondistended, nontender. Negative for masses or hepatosplenomegaly. Negative for costovertebral tenderness. Pelvis: Stable nontender. Genitourinary: Deferred. Rectal: Deferred. Skin: Intact, warm, dry. No lesions or rashes noted. Extremities: Atraumatic, negative for cords or calf pain. Neurovascular unremarkable. Neuro: Awake, alert, oriented. Cranial nerves II through XII unremarkable. Cerebellum unremarkable. Motor and sensory unremarkable throughout. Exam nonfocal. Notes: Patient was seen in the ED on 06/16/2019 and was given Keflex for urinary tract infection. Urine culture from this visit shows mixed taj. Patient able to tolerate p.o. intake in the ED today and no episodes of emisis in ED today. Voices understanding and is agreeable to plan of care. Denies any further questions or concerns at this time. Diagnostics: UA, Uhcg, CBC, CMP Therapeutics: NS, Zofran Prescription: Macrobid Impression: Urinary Tract Infection Nausea and vomiting in Plan: 1. Take medication as prescribed. Encourage small but frequent sips of fluid to prevent dehydration. 2. You can take Tylenol as directed for pain and discomfort. This is safe to use in . 3. Follow-up with your OBGYN provider as discussed. Return to the ED as needed and as discussed. Definitive disposition and diagnosis as appropriate pending reevaluation and review of above. bladder Pain Score (Numeric/FACES): 4 - Related Data Allergies Allergy/AdvReac Type Severity Reaction Status Date / Time latex Allergy Rash Verified 03/06/19 13:31 Home Meds: Home Meds Metoprolol Tartrate [Lopressor] 25 mg PO Q12H #60 tablet 03/04/19 [Rx] Ondansetron [Zofran ODT] 4 mg PO Q6H PRN #15 tab.dis 06/16/19 [Rx] Nitrofurantoin Monohyd/M-Cryst [Macrobid 100 mg Capsule] 100 mg PO BID 5 Days # 10 capsule 07/05/19 [Rx] [id number]/Iron Fumarate/FA/DSS [ 19 Tablet] 1 tab PO DAILY 07/05/19 [ History] Past Medical History - Past Health History Medical/Surgical History: Denies Medical/Surgical History HEENT History: Reports: None Cardiovascular History: Reports: None Respiratory History: Reports: Bronchitis, Recurrent Gastrointestinal History: Reports: None Genitourinary History: Reports: Other (See Below) Other Genitourinary History: Bladder Hammock, 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: 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 History: Reports: None Neurological History: Reports: None Psychiatric History: Reports: None Endocrine/Metabolic History: Reports: None Hematologic History: Reports: None Immunologic History: Reports: None Oncologic (Cancer) History: Reports: None Dermatologic History: Reports: None - Infectious Disease History Infectious Disease History: Reports: Chicken Pox - Past Surgical History Head Surgeries/Procedures: Reports: None Female Surgical History: Reports: Other (See Below) Other Female Surgeries/Procedures: bladder sling Dermatological Surgical History: Reports: Other (See Below) Social & Family History - Family History Family Medical History: Noncontributory Oncologic: Reports: Esophageal, Lung, Non-Hodgkin's Lymphoma, Ovarian - Tobacco Use Smoking Status *Q: Current Every Day Smoker Years of Tobacco use: 25 Packs/Tins Daily: 0.5 - Caffeine Use Caffeine Use: Reports: Coffee, Soda - Recreational Drug Use Recreational Drug Use: No ED ROS GENERAL - Review of Systems Review Of Systems: Comprehensive ROS is negative, except as noted in HPI. ED EXAM, GENERAL - Physical Exam Exam: See Below (see dictation) Course - Vital Signs Last Recorded V/S: Last Vital Signs Temp 98.4 F 07/05/19 15:48 Pulse 106 H 07/05/19 15:48 Resp 18 07/05/19 15:48 BP 120/80 07/05/19 15:48 Pulse Ox 96 07/05/19 15:48 - Orders/Labs/Meds Orders: Active Orders 24 hr Category Date Time Status CULTURE URINE [RM] Stat Lab 07/05/19 15:56 Received Labs: Laboratory Tests 07/05/19 07/05/19 07/05/19 Range/Units 15:56 15:56 16:35 WBC 14.08 H (4.0-11.0) K/uL RBC 4.44 (4.30-5.90) M/uL Hgb 14.4 (12.0-16.0) g/dL Hct 39.5 (36.0-46.0) % MCV 89.0 (80.0-98.0) fL MCH 32.4 H (27.0-32.0) pg MCHC 36.5 (31.0-37.0) g/dL RDW Std Deviation 42.1 (28.0-62.0) fl RDW Coeff of Rom 13 (11.0-15.0) % Plt Count 201 (150-400) K/uL MPV 11.40 (7.40-12.00) fL Neut % (Auto) 70.7 (48.0-80.0) % Lymph % (Auto) 20.2 (16.0-40.0) % Teton % (Auto) 8.2 (0.0-15.0) % Eos % (Auto) 0.7 (0.0-7.0) % Baso % (Auto) 0.2 (0.0-1.5) % Neut # (Auto) 10.0 H (1.4-5.7) K/uL Lymph # (Auto) 2.9 H (0.6-2.4) K/uL Teton # (Auto) 1.2 H (0.0-0.8) K/uL Eos # (Auto) 0.1 (0.0-0.7) K/uL Baso # (Auto) 0.0 (0.0-0.1) K/uL Nucleated RBC % 0.0 /100WBC Nucleated RBCs # 0 K/uL Sodium (136-145) mmol/L Potassium (3.5-5.1) mmol/L Chloride (98-107) mmol/L Carbon Dioxide (21.0-32.0) mmol/L BUN (7.0-18.0) mg/dL Creatinine (0.6-1.0) mg/dL Est Cr Clr Drug Dosing mL/min Estimated GFR (MDRD) ml/min Glucose (74-106) mg/dL Calcium (8.5-10.1) mg/dL Total Bilirubin (0.2-1.0) mg/dL AST (15-37) IU/L ALT (14-63) IU/L Alkaline Phosphatase (46-116) U/L Total Protein (6.4-8.2) g/dL Albumin (3.4-5.0) g/dL Globulin (2.6-4.0) g/dL Albumin/Globulin Ratio (0.9-1.6) Urine Color DARK YELLOW Urine Appearance SLT CLOUDY Urine pH 6.0 (5.0-8.0) Ur Specific Lyman 1.025 (1.001-1.035) Urine Protein TRACE H (NEGATIVE) mg/dL Urine Glucose (UA) NEGATIVE (NEGATIVE) mg/dL Urine Ketones 15 H (NEGATIVE) mg/dL Urine Occult Blood NEGATIVE (NEGATIVE) Urine Nitrite POSITIVE H (NEGATIVE) Urine Bilirubin SMALL H (NEGATIVE) Urine Ictotest NEGATIVE Urine Urobilinogen 1.0 (<2.0) EU/dL Ur Leukocyte Esterase NEGATIVE (NEGATIVE) Urine RBC 0-2 (0-2/HPF) Urine WBC 0-5 (0-5/HPF) Ur Epithelial Cells MANY (NONE-FEW) Calcium Oxalate Crystal OCCASIONAL (NEGATIVE) Urine Bacteria 1+ H (NEGATIVE) Urine Mucus LIGHT (NONE-MOD) Urine HCG, Qual POSITIVE (NEGATIVE) 07/05/19 Range/Units 16:35 WBC (4.0-11.0) K/uL RBC (4.30-5.90) M/uL Hgb (12.0-16.0) g/dL Hct (36.0-46.0) % MCV (80.0-98.0) fL MCH (27.0-32.0) pg MCHC (31.0-37.0) g/dL RDW Std Deviation (28.0-62.0) fl RDW Coeff of Rom (11.0-15.0) % Plt Count (150-400) K/uL MPV (7.40-12.00) fL Neut % (Auto) (48.0-80.0) % Lymph % (Auto) (16.0-40.0) % Teton % (Auto) (0.0-15.0) % Eos % (Auto) (0.0-7.0) % Baso % (Auto) (0.0-1.5) % Neut # (Auto) (1.4-5.7) K/uL Lymph # (Auto) (0.6-2.4) K/uL Teton # (Auto) (0.0-0.8) K/uL Eos # (Auto) (0.0-0.7) K/uL Baso # (Auto) (0.0-0.1) K/uL Nucleated RBC % /100WBC Nucleated RBCs # K/uL Sodium 136 (136-145) mmol/L Potassium 3.8 (3.5-5.1) mmol/L Chloride 102 (98-107) mmol/L Carbon Dioxide 23.6 (21.0-32.0) mmol/L BUN 10 (7.0-18.0) mg/dL Creatinine 0.7 (0.6-1.0) mg/dL Est Cr Clr Drug Dosing 90.88 mL/min Estimated GFR (MDRD) > 60.0 ml/min Glucose 104 (74-106) mg/dL Calcium 8.8 (8.5-10.1) mg/dL Total Bilirubin 0.4 (0.2-1.0) mg/dL AST 15 (15-37) IU/L ALT 24 (14-63) IU/L Alkaline Phosphatase 65 (46-116) U/L Total Protein 6.7 (6.4-8.2) g/dL Albumin 2.9 L (3.4-5.0) g/dL Globulin 3.8 (2.6-4.0) g/dL Albumin/Globulin Ratio 0.8 L (0.9-1.6) Urine Color Urine Appearance Urine pH (5.0-8.0) Ur Specific Lyman (1.001-1.035) Urine Protein (NEGATIVE) mg/dL Urine Glucose (UA) (NEGATIVE) mg/dL Urine Ketones (NEGATIVE) mg/dL Urine Occult Blood (NEGATIVE) Urine Nitrite (NEGATIVE) Urine Bilirubin (NEGATIVE) Urine Ictotest Urine Urobilinogen (<2.0) EU/dL Ur Leukocyte Esterase (NEGATIVE) Urine RBC (0-2/HPF) Urine WBC (0-5/HPF) Ur Epithelial Cells (NONE-FEW) Calcium Oxalate Crystal (NEGATIVE) Urine Bacteria (NEGATIVE) Urine Mucus (NONE-MOD) Urine HCG, Qual (NEGATIVE) Meds: Medications Discontinued Medications Generic Name Dose Route Start Last Admin Trade Name Freq PRN Reason Stop Dose Admin Sodium Chloride 1,000 mls @ 999 mls/hr 07/05/19 16:12 07/05/19 16:35 Normal Saline IV 07/05/19 17:12 999 mls/hr STAT ONE Administration Ondansetron HCl 4 mg 07/05/19 16:12 07/05/19 16:35 Zofran IVPUSH 07/05/19 16:13 4 mg ONETIME ONE Administration Departure - Departure Time of Disposition: 17:54 Disposition: Home, Self-Care 01 Clinical Impression: Nausea/vomiting in Urinary tract infection Qualifiers: Urinary tract infection type: acute cystitis Hematuria presence: without hematuria Qualified Code(s): N30.00 - Acute cystitis without hematuria - Discharge Information Prescriptions: Nitrofurantoin Monohyd/M-Cryst [Macrobid 100 mg Capsule] 100 mg PO BID 5 Days # 10 capsule Referrals: Georgina Mcdonnell [Primary Care Provider] - Forms: ED Department Discharge Additional Instructions: The following information is given to patients seen in the emergency department who are being discharged to home. This information is to outline your options for follow-up care. We provide all patients seen in our emergency department with a follow-up referral. The need for follow-up, as well as the timing and circumstances, are variable depending upon the specifics of your emergency department visit. If you don't have a primary care physician on staff, we will provide you with a referral. We always advise you to contact your personal physician following an emergency department visit to inform them of the circumstance of the visit and for follow-up with them and/or the need for any referrals to a consulting specialist. The emergency department will also refer you to a specialist when appropriate. This referral assures that you have the opportunity for follow-up care with a specialist. All of these measure are taken in an effort to provide you with optimal care, which includes your follow-up. Under all circumstances we always encourage you to contact your private physician who remains a resource for coordinating your care. When calling for follow-up care, please make the office aware that this follow-up is from your recent emergency room visit. If for any reason you are refused follow-up, please contact the [facility] Emergency Department at and asked to speak to the emergency department charge nurse. [facility] [address] [place] [address] [facility] [address] [place] [address] 1. Take medication as prescribed. Encourage small but frequent sips of fluid to prevent dehydration. 2. You can take Tylenol as directed for pain and discomfort. This is safe to use in . 3. Follow-up with your OBGYN provider as discussed. Return to the ED as needed and as discussed. Sepsis Event Note - Evaluation Sepsis Screening Result: No Definite Risk - Focused Exam Vital Signs: Vital Signs Temp Pulse Resp BP Pulse Ox 07/05/19 15:48 98.4 F 106 H 18 120/80 96 Date Exam was Performed: 07/05/19 Time Exam was Performed: 17:53 - My Orders Last 24 Hours: My Active Orders 07/05/19 15:56 CULTURE URINE [RM] Stat - Assessment/Plan Last 24 Hours: My Active Orders 07/05/19 15:56 CULTURE URINE [RM] Stat
[2019-07-05 17:04] LABS: BLOOD UREA NITROGEN,BUN 10 mg/dL (7.0-18.0); CARBON DIOXIDE,CO2 23.6 mmol/L (21.0-32.0); CHLORIDE,CL 102 mmol/L (98-107); GLUCOSE RANDOM 104 mg/dL (74-106); POTASSIUM,K 3.8 mmol/L (3.5-5.1); SODIUM,NA 136 mmol/L (136-145)
== END 2019-07-05 18:06 | disposition home or self-care (01) ==
LOC: MW.ED 15:27
DX: O23.12 Infections of bladder in pregnancy, second trimester (principal); O21.9 Vomiting of pregnancy, unspecified; O09.512 Supervision of elderly primigravida, second trimester; Z91.040 Latex allergy status; Z3A.14 14 weeks gestation of pregnancy
CPT/HCPCS: 36415; 80053; 81001; 81025; 85025; 87086; 87088; 87186; 96361; 96374; 99284; J2405; J7030; 99283

== ENCOUNTER 2019-07-09 16:04 | Observation (INO) | payer BC ==
[2019-07-09] MEDS ORDERED: Sodium Chloride 0.9% 10 ML SDV IV PRN (16:37)
[2019-07-09] MEDS ORDERED: Sodium Chloride 0.9% 2.5 ML Syringe FLUSH PRN (16:37)
[2019-07-09] MEDS ORDERED: Sodium Chloride 0.9% 10 ML Syringe FLUSH PRN (16:37)
[2019-07-09] MEDS: Lactated Ringers 1,000 ML IV SCH ×2 (17:14→22:18)
[2019-07-09] MEDS: Ondansetron 4 MG/2 ML SDV IVPUSH PRN ×2 (17:46→22:09)
[2019-07-09 17:51] LABS: BLOOD UREA NITROGEN,BUN 10 mg/dL (7.0-18.0); CARBON DIOXIDE,CO2 27.9 mmol/L (21.0-32.0); CHLORIDE,CL 102 mmol/L (98-107); GLUCOSE RANDOM 89 mg/dL (74-106); SODIUM,NA 140 mmol/L (136-145)
[2019-07-10] MEDS: Ondansetron 4 MG/2 ML SDV IVPUSH PRN ×2 (02:10→07:11)
[2019-07-10] MEDS: Lactated Ringers 1,000 ML IV SCH (03:35)
== END 2019-07-10 10:20 | disposition home or self-care (01) ==
LOC: MW.OB 16:04
PROVIDERS: ADMIT Obstetrics & Gynecology; ATTEND Obstetrics & Gynecology
DX: O21.1 Hyperemesis gravidarum with metabolic disturbance (principal); Z79.899 Other long term (current) drug therapy
CPT/HCPCS: 36415; 80053; 85025; 96361; 96374; 96376; G0378; J2405; J7120

== ENCOUNTER 2019-07-25 10:36 | Emergency (ER) | payer BC ==
--- NOTE | 2019-07-25 10:51 | EDM.PDOC ---
ED HPI GENERAL MEDICAL PROBLEM - General Chief Complaint: Skin Complaint Stated Complaint: EXPOSURE TO BEDBUGS FROM WORK. POSSIBLE BITES Time Seen by Provider: 07/25/19 10:41 Source of Information: Reports: Patient History Limitations: Reports: No Limitations - History of Present Illness INITIAL COMMENTS - FREE TEXT/NARRATIVE: HISTORY AND PHYSICAL: History of present illness: Patient is a 43-year-old female who presents to the ED today with concern of a rash that started over the past several days. 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 Patient states she is concerned that she had bedbugs so she is here today in the ED. Patient states that nobody else in her house has had a similar rash and that nobody around her has had a rash either at work. Patient states she has not seen any bugs and is unsure what the rash could be from. Patient denies any associated symptoms. Patient denies fever, chills, chest pain, shortness of breath, or cough. Denies headache, neck stiff ness, change in vision, syncope, or near syncope. Denies nausea, vomiting, abdominal pain, diarrhea, constipation, or dysuria. Has not noted any blood in urine or stool. Patient has been eating and drinking appropriately. Review of systems: As per history of present illness and below otherwise all systems reviewed and negative. Past medical history: As per history of present illness and as reviewed below otherwise noncontributory. Surgical history: As per history of present illness and as reviewed below otherwise noncontributory. Social history: See social history for further information Family history: As per history of present illness and as reviewed below otherwise noncontributory. Physical exam: General: Patient is alert, oriented, and in no acute distress. Patient sitting comfortably on exam table. HEENT: Atraumatic, normocephalic, pupils equal and reactive bilaterally, negative for conjunctival pallor or scleral icterus, mucous membranes moist, TMs normal bilaterally, throat clear, neck supple, nontender, trachea midline. No drooling or trismus noted. No meningeal signs. No hot potato voice noted. Lungs: Clear to auscultation, breath sounds equal bilaterally, chest nontender. Heart: S1S2, regular rate and rhythm without overt murmur Abdomen: Soft, nondistended, nontender. Negative for masses or hepatosplenomegaly. Negative for costovertebral tenderness. Pelvis: Stable nontender. Genitourinary: Deferred. Rectal: Deferred. Skin: There is an area of the right distal forearm with small area of urticaria without petechia or purpura. There is a similar area of urticaria of the left flank. Otherwise, Intact, warm, dry. No lesions or rashes noted. Extremities: Atraumatic, negative for cords or calf pain. Neurovascular unremarkable. Neuro: Awake, alert, oriented. Cranial nerves II through XII unremarkable. Cerebellum unremarkable. Motor and sensory unremarkable throughout. Exam nonfocal. Notes: Discussed importance for follow-up with a primary care provider. Voices understanding and is agreeable to plan of care. Denies any further questions or concerns at this time. Diagnostics: None Therapeutics: None Prescription: None Impression: Dermatitis Plan: 1. Avoid triggers. Continue to monitor for possible exposures/triggers/foods/ bugs. 2. While symptomatic continue to routinely take Benadryl as directed. 3. You may use topical calamine lotion, cool tempid oatmeal baths, Aveeno bath/ lotions. 4. Please follow up with your Primary care doctor as discussed. Return to the ED as needed and as discussed. Definitive disposition and diagnosis as appropriate pending reevaluation and review of above. - Related Data Allergies Allergy/AdvReac Type Severity Reaction Status Date / Time latex Allergy Rash Verified 07/09/19 16:31 Home Meds: Home Meds Metoprolol Tartrate [Lopressor] 25 mg PO Q12H #60 tablet 03/04/19 [Rx] Ondansetron [Zofran ODT] 4 mg PO Q6H PRN #15 tab.dis 06/16/19 [Rx] Past Medical History - Past Health History Medical/Surgical History: Denies Medical/Surgical History HEENT History: Reports: None Cardiovascular History: Reports: None, Hypertension Respiratory History: Reports: Bronchitis, Recurrent Gastrointestinal History: Reports: None Genitourinary History: Reports: Other (See Below) Other Genitourinary History: Bladder Hammock, 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, hx of kidney stones x11 [employer]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 History: Reports: None Neurological History: Reports: None Psychiatric History: Reports: None Endocrine/Metabolic History: Reports: None Hematologic History: Reports: None Immunologic History: Reports: None Oncologic (Cancer) History: Reports: None Dermatologic History: Reports: None - Infectious Disease History Infectious Disease History: Reports: Chicken Pox - Past Surgical History Head Surgeries/Procedures: Reports: None HEENT Surgical History: Reports: None Cardiovascular Surgical History: Reports: None Respiratory Surgical History: Reports: None Female Surgical History: Reports: Other (See Below) Other Female Surgeries/Procedures: bladder sling 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 Surgical History: Reports: None Dermatological Surgical History: Reports: Other (See Below) Social & Family History - Family History Family Medical History: Noncontributory HEENT: Reports: None Cardiac: Reports: None Respiratory: Reports: None GI: Reports: None : Reports: None OBGYN: Reports: None 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: Reports: None Neurological: Reports: None Psychiatric: Reports: None Endocrine/Metabolic: Reports: None Hematologic: Reports: None Immunologic: Reports: None Dermatologic: Reports: None Oncologic: Reports: Esophageal, Lung, Non-Hodgkin's Lymphoma, Ovarian - Caffeine Use Caffeine Use: Reports: Soda ED ROS GENERAL - Review of Systems Review Of Systems: Comprehensive ROS is negative, except as noted in HPI. ED EXAM, SKIN/RASH Exam: See Below (see dictation) Course - Vital Signs Last Recorded V/S: Last Vital Signs Temp 97.5 F 07/25/19 10:50 Pulse 97 07/25/19 10:50 Resp 20 07/25/19 10:50 BP 152/94 H 07/25/19 10:50 Pulse Ox 97 07/25/19 10:50 Departure - Departure Time of Disposition: 11:24 Disposition: Home, Self-Care 01 Clinical Impression: Dermatitis - Discharge Information Referrals: Choco Brown MD [Primary Care Provider] - Forms: ED Department Discharge Additional Instructions: The following information is given to patients seen in the emergency department who are being discharged to home. This information is to outline your options for follow-up care. We provide all patients seen in our emergency department with a follow-up referral. The need for follow-up, as well as the timing and circumstances, are variable depending upon the specifics of your emergency department visit. If you don't have a primary care physician on staff, we will provide you with a referral. We always advise you to contact your personal physician following an emergency department visit to inform them of the circumstance of the visit and for follow-up with them and/or the need for any referrals to a consulting specialist. The emergency department will also refer you to a specialist when appropriate. This referral assures that you have the opportunity for follow-up care with a specialist. All of these measure are taken in an effort to provide you with optimal care, which includes your follow-up. Under all circumstances we always encourage you to contact your private physician who remains a resource for coordinating your care. When calling for follow-up care, please make the office aware that this follow-up is from your recent emergency room visit. If for any reason you are refused follow-up, please contact the [facility] Emergency Department at and asked to speak to the emergency department charge nurse. [facility] [address] [place] [address] [place] [address] 1. Avoid triggers. Continue to monitor for possible exposures/triggers/foods/ bugs. 2. While symptomatic continue to routinely take Benadryl as directed. 3. You may use topical calamine lotion, cool tempid oatmeal baths, Aveeno bath/ lotions. 4. Please follow up with your Primary care doctor as discussed. Return to the ED as needed and as discussed. Sepsis Event Note - Focused Exam Vital Signs: Vital Signs Temp Pulse Resp BP Pulse Ox 07/25/19 10:50 97.5 F 97 20 152/94 H 97 Date Exam was Performed: 07/25/19 Time Exam was Performed: 11:23
== END 2019-07-25 11:46 | disposition home or self-care (01) ==
LOC: MW.ED 10:36
CPT/HCPCS: 99282

== ENCOUNTER 2019-12-22 00:09 | Inpatient (IN) | payer BC, MEDICAID ==
[2019-12-22] MEDS ORDERED: Lidocaine 1% 50 ML MDV INJECT PRN (00:47)
[2019-12-22] MEDS ORDERED: Sodium Chloride 0.9% 10 ML Syringe FLUSH PRN (00:47)
[2019-12-22] MEDS ORDERED: Tranexamic Acid 1,000 MG in Sodium Chloride 0.9% 100 ML IV PRN (00:47)
[2019-12-22] MEDS ORDERED: Sodium Chloride 0.9% 2.5 ML Syringe FLUSH PRN (00:47)
[2019-12-22] MEDS ORDERED: Methylergonovine 0.2 MG/1 ML Amp IM PRN (00:47)
[2019-12-22] MEDS ORDERED: Ampicillin 2 GM in Sodium Chloride 0.9% 100 ML IV ONE (00:47)
[2019-12-22] MEDS ORDERED: Nalbuphine 10 MG/1 ML Vial IVPUSH PRN (00:47)
[2019-12-22] MEDS ORDERED: Butorphanol 1 MG/ML SDV IVPUSH PRN (00:47)
[2019-12-22] MEDS ORDERED: Terbutaline 1 MG/ML SDV SUBCUT PRN (00:47)
[2019-12-22] MEDS ORDERED: Misoprostol 200 MCG Tab PO PRN (00:47)
[2019-12-22] MEDS ORDERED: Carboprost Tromethamine 250 MCG/1 ML Amp IM PRN (00:47)
[2019-12-22] MEDS ORDERED: Sodium Chloride 0.9% 10 ML SDV IV PRN (00:47)
[2019-12-22] MEDS ORDERED: Misoprostol 25 MCG (1/4 of 100 MCG) Tab VAG PRN ×2 (00:47)
[2019-12-22] MEDS ORDERED: Water For Irrigation,Sterile 1,000 ML Container IRR PRN (00:47)
[2019-12-22] MEDS ORDERED: Misoprostol 25 MCG (1/4 of 100 MCG) Tab PO PRN (00:58)
[2019-12-22] MEDS ORDERED: Oxytocin/0.9 % Sodium Chloride 30 UNIT/500 ML BAG IV SCH ×2 (01:00)
[2019-12-22] MEDS: Ampicillin 1 GM in Sodium Chloride 0.9% 50 ML IV SCH ×4 (05:41→17:45)
[2019-12-22] MEDS: Ondansetron 4 MG/2 ML SDV IVPUSH PRN ×2 (05:46→12:10)
[2019-12-22] MEDS: Misoprostol 25 MCG (1/4 of 100 MCG) Tab VAG PRN ×3 (05:51→14:10)
[2019-12-22] MEDS: Misoprostol 25 MCG (1/4 of 100 MCG) Tab PO PRN ×3 (05:51→14:10)
[2019-12-22] MEDS ORDERED: Famotidine 20 MG Tab PO PRN (08:01)
--- NOTE | 2019-12-22 08:15 | PCM.LDHP ---
L&D History of Present Illness - General Date of Service: 12/22/19 Admit Problem/Dx: Patient Status Order with Admit Dx/Problem 12/22/19 00:47 Patient Status [ADT] Routine Admission Diagnosis/Problem Admission Diagnosis/Problem 12/22/19 08:11 at 38 1/7 weeks (ELSIE: [birth year]) presenting to L&D for IOL due to chronic hypertension and GDMA1. A+, RI, GBS positive. Source of Information: Patient History Limitations: Reports: No Limitations - Related Data Allergies/Adverse Reactions: Allergies Allergy/AdvReac Type Severity Reaction Status Date / Time adhesive tape Allergy Mild Rash Verified 12/21/19 21:40 latex Allergy Mild Rash Verified 12/21/19 21:40 Home Medications: Home Meds Metoprolol Tartrate [Lopressor] 25 mg PO Q12H #60 tablet 03/04/19 [Rx] Aspirin [Aspirin EC] 81 mg PO DAILY 11/20/19 [History] Pnv #30/Iron Carb&Aspg/Fa/Om3 [OB Complete with DHA Softgel] 1 tab PO DAILY 11/20/19 [History] Ondansetron [Zofran] 8 mg PO Q6HR PRN 12/21/19 [History] Past Medical History - Past Health History Medical/Surgical History: Denies Medical/Surgical History HEENT History: Reports: None Cardiovascular History: Reports: Hypertension Respiratory History: Reports: Asthma, Bronchitis, Recurrent Other Respiratory History: Childhood Asthma Gastrointestinal History: Reports: None Other Gastrointestinal History: Hyperemesis Gravidarum Genitourinary History: Reports: Other (See Below) Other Genitourinary History: Bladder Hammock, 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, hx of kidney stones x11 [employer]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: 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 History: Reports: None Neurological History: Reports: None Psychiatric History: Reports: Anxiety Endocrine/Metabolic History: Reports: Diabetes, Gestational Hematologic History: Reports: None Immunologic History: Reports: None Oncologic (Cancer) History: Reports: None Dermatologic History: Reports: None - Infectious Disease History Infectious Disease History: Reports: Chicken Pox - Past Surgical History Head Surgeries/Procedures: Reports: None HEENT Surgical History: Reports: None Cardiovascular Surgical History: Reports: None Respiratory Surgical History: Reports: None Female Surgical History: Reports: Other (See Below) Other Female Surgeries/Procedures: bladder sling 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 Surgical History: Reports: None Dermatological Surgical History: Reports: Other (See Below) Social & Family History - Family History Family Medical History: Noncontributory HEENT: Reports: None Cardiac: Reports: None Respiratory: Reports: None GI: Reports: None : Reports: None OBGYN: Reports: None 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: Reports: None Neurological: Reports: None Psychiatric: Reports: None Endocrine/Metabolic: Reports: None Hematologic: Reports: None Immunologic: Reports: None Dermatologic: Reports: None Oncologic: Reports: Esophageal, Lung, Non-Hodgkin's Lymphoma, Ovarian - Tobacco Use Smoking Status *Q: Current Every Day Smoker Years of Tobacco use: 20 Packs/Tins Daily: 0.5 Used Tobacco, but Quit: No Second Hand Smoke Exposure: No - Caffeine Use Caffeine Use: Reports: Coffee, Soda Caffeine Use Comment: Reduction since hyperemesis - Recreational Drug Use Recreational Drug Use: No H&P Review of Systems - Review of Systems: Review Of Systems: See Below General: Reports: No Symptoms HEENT: Reports: No Symptoms Pulmonary: Reports: No Symptoms Cardiovascular: Reports: No Symptoms Gastrointestinal: Reports: No Symptoms Genitourinary: Reports: No Symptoms 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: Reports: No Symptoms Skin: Reports: No Symptoms Psychiatric: Reports: No Symptoms Neurological: Reports: No Symptoms Hematologic/Lymphatic: Reports: No Symptoms Immunologic: Reports: No Symptoms L&D Exam - Exam Exam: See Below - Vital Signs Weight: 234 lb - OB Specific Contraction Intensity: Mild to Moderate Movement: Active Heart Tones: Present Heart Rate (FHR) Variability: Moderate (6-25 bmp) - Urban Score Urban Score Cervix Position: Posterior Urban Score Consistency: Soft Urban Score Effacement: 0-30% Urban Score Dilation: 1-2 cm Urban Score 's Station: -3 (per nurse report) Urban Score Total: 3 - Exam General: Alert, Oriented, Cooperative Lungs: Normal Respiratory Effort Cardiovascular: Regular Rate, Regular Rhythm GI/Abdominal Exam: Soft, Non-Tender Rectal Exam: Deferred Genitourinary: Deferred Back Exam: Normal Inspection, Full Range of Motion Extremities: Normal Inspection, Normal Range of Motion, Non-Tender, Normal Capillary Refill Skin: Warm, Dry, Intact Neurological: Strength Equal Bilateral, Normal Gait, Normal Speech, Normal Tone, Sensation Intact Psychiatric: Alert, Normal Affect, Normal Mood - Patient Data Lab Results Last 24 hrs: Laboratory Results - last 24 hr 12/22/19 12/22/19 12/22/19 Range/Units 00:25 00:25 00:29 WBC 8.72 (4.0-11.0) K/uL RBC 4.60 (4.30-5.90) M/uL Hgb 14.6 (12.0-16.0) g/dL Hct 41.4 (36.0-46.0) % MCV 90.0 (80.0-98.0) fL MCH 31.7 (27.0-32.0) pg MCHC 35.3 (31.0-37.0) g/dL RDW Std Deviation 44.9 (28.0-62.0) fl RDW Coeff of Rom 14 (11.0-15.0) % Plt Count 154 (150-400) K/uL MPV 12.80 H (7.40-12.00) fL Nucleated RBC % 0.0 /100WBC Nucleated RBCs # 0 K/uL COVID-19 (JOCELYN) NEGATIVE (NEGATIVE) Blood Type A POSITIVE Antibody Screen NEGATIVE Result Diagrams: 12/22/19 00:25 - Problem List (1) Supervision of normal IUP (intrauterine ) in multigravida SNOMED Code(s): 022266739, 745659570, 111870610 ICD Code: Z34.80 - ENCOUNTER FOR SUPRVSN OF NORMAL , UNSP TRIMESTER Status: Acute Priority: High Current Visit: Yes Qualifiers: Trimester: third trimester Qualified Code(s): Z34.83 - Encounter for supervision of other normal , third trimester (2) GDM (gestational diabetes mellitus), class A1 SNOMED Code(s): 04827633 ICD Code: O24.410 - GESTATIONAL DIABETES MELLITUS IN , DIET CONTROLLED Status: Acute Priority: High Current Visit: Yes (3) Chronic hypertension SNOMED Code(s): 81351035, 10931181 ICD Code: I10 - ESSENTIAL (PRIMARY) HYPERTENSION Status: Acute Priority: High Current Visit: Yes Problem List Initiated/Reviewed/Updated: Yes Orders Last 24hrs: Active Orders 24 hr Category Date Time Status Patient Status [ADT] Routine ADT 12/22/19 00:47 Active Bedrest Bathroom Privileges [RC] ASDIRECTED Care 12/22/19 00:47 Active Communication Order [RC] ASDIRECTED Care 12/22/19 00:47 Active Communication Order [RC] ASDIRECTED Care 12/22/19 00:47 Active Communication Order [RC] ASDIRECTED Care 12/22/19 00:47 Active Heart Tones [RC] INTERMITTENT Care 12/22/19 00:47 Active Non Stress Test [RC] PER UNIT ROUTINE Care 12/22/19 00:47 Active May Shower [RC] ASDIRECTED Care 12/22/19 00:47 Active Notify Provider [RC] PRN Care 12/22/19 00:47 Active Notify Provider [RC] PRN Care 12/22/19 00:47 Active Notify Provider [RC] PRN Care 12/22/19 00:47 Active Notify Provider [RC] STAT Care 12/22/19 00:47 Active Oxygen Therapy [RC] ASDIRECTED Care 12/22/19 00:47 Active Up ad Callie [RC] ASDIRECTED Care 12/22/19 00:47 Active Vaginal Exam [RC] PRN Care 12/22/19 00:47 Active Vaginal Exam [RC] PRN Care 12/22/19 00:47 Active Vital Signs [RC] PER UNIT ROUTINE Care 12/22/19 00:47 Active Vital Signs [RC] PER UNIT ROUTINE Care 12/22/19 00:47 Active Regular Diet [DIET] Diet 12/22/19 Breakfast Active RPR (SYPHILIS SERO) W/ RFLX [REF] Routine Lab 12/22/19 00:25 Received Ampicillin 1 gm Med 12/22/19 05:30 Active Sodium Chloride 0.9% [Normal Saline] 50 ml IV Q4H Butorphanol [Stadol] Med 12/22/19 00:47 Active 1 mg IVPUSH Q1H PRN Carboprost Tromethamine [Hemabate DS] Med 12/22/19 00:47 Active 250 mcg IM ASDIRECTED PRN Famotidine [Pepcid] Med 12/22/19 08:01 Active 20 mg PO BID PRN Lactated Ringers [Ringers, Lactated] 1,000 ml Med 12/22/19 01:00 Active IV ASDIRECTED Lidocaine 1% [Xylocaine 1%] Med 12/22/19 00:47 Active 50 ml INJECT ONETIME PRN Methylergonovine [Methergine] Med 12/22/19 00:47 Active 0.2 mg IM ASDIRECTED PRN Metoprolol Tartrate [Lopressor] Med 12/22/19 09:00 Active 25 mg PO DAILY Nalbuphine [Nubain] Med 12/22/19 00:47 Active 10 mg IVPUSH Q1H PRN Ondansetron [Zofran] Med 12/22/19 00:47 Active 4 mg IVPUSH Q6H PRN Oxytocin/0.9 % Sodium Chloride [Oxytocin 30 Unit/500 ML Med 12/22/19 01:00 Active -NS] 30 unit in 500 ml IV TITRATE Oxytocin/0.9 % Sodium Chloride [Oxytocin 30 Unit/500 ML Med 12/22/19 01:00 Active -NS] 30 unit in 500 ml IV TITRATE Sodium Chloride 0.9% [Normal Saline] Med 12/22/19 00:47 Active 10 ml IV ASDIRECTED PRN Sodium Chloride 0.9% [Saline Flush] Med 12/22/19 00:47 Active 10 ml FLUSH ASDIRECTED PRN Sodium Chloride 0.9% [Saline Flush] Med 12/22/19 00:47 Active 2.5 ml FLUSH ASDIRECTED PRN Terbutaline [Brethine] Med 12/22/19 00:47 Active 0.25 mg SUBCUT ASDIRECTED PRN Tranexamic Acid [Cyklokapron] 1,000 mg Med 12/22/19 00:47 Active Sodium Chloride 0.9% [Normal Saline] 100 ml IV ONETIME Water For Irrigation,Sterile [Sterile Water for Med 12/22/19 00:47 Active Irrigation] 1,000 ml IRR ASDIRECTED PRN miSOPROStoL [Cytotec] Med 12/22/19 00:47 Active 200 mcg PO ONETIME PRN miSOPROStoL [Cytotec] Med 12/22/19 00:58 Active 25 mcg PO ONETIME PRN miSOPROStoL [Cytotec] Med 12/22/19 00:59 Active 25 mcg PO Q4H PRN miSOPROStoL [Cytotec] Med 12/22/19 00:47 Active 25 mcg VAG ONETIME PRN miSOPROStoL [Cytotec] Med 12/22/19 05:24 Active 25 mcg VAG Q4H PRN Scalp Electrode [WOMSER] Per Unit Routine Oth 12/22/19 00:47 Ordered Medication Administration Instruction [OM.PC] Q3H Oth 12/22/19 01:00 Ordered Peripheral IV Insertion Adult [OM.PC] Routine Oth 12/22/19 00:47 Ordered Resuscitation Status Routine Resus Stat 12/22/19 00:47 Ordered Medication Orders Butorphanol Tartrate (Stadol) 1 mg IVPUSH Q1H PRN PRN Reason: Pain Carboprost Tromethamine (Hemabate Ds) 250 mcg IM ASDIRECTED PRN PRN Reason: Post Hemorrhage Famotidine (Pepcid) 20 mg PO BID PRN PRN Reason: Heartburn Lactated Ringer's (Ringers, Lactated) 1,000 mls @ 150 mls/hr IV ASDIRECTED [facility] Oxytocin/Sodium Chloride (Oxytocin 30 Unit/500 Ml-Ns) 30 unit in 500 mls @ 999 mls/hr IV TITRATE [facility] Tranexamic Acid 1,000 mg/ (Sodium Chloride) 110 mls @ 660 mls/hr IV ONETIME PRN PRN Reason: Bleeding Oxytocin/Sodium Chloride (Oxytocin 30 Unit/500 Ml-Ns) 30 unit in 500 mls @ 2 mls/hr IV TITRATE [facility]; Protocol Ampicillin Sodium 1 gm/ Sodium (Chloride) 50 mls @ 100 mls/hr IV Q4H [facility] Last Admin: 12/22/19 05:41 Dose: 100 mls/hr Documented by: RITA Lidocaine HCl (Xylocaine 1%) 50 ml INJECT ONETIME PRN PRN Reason: Laceration repair Methylergonovine Maleate (Methergine) 0.2 mg IM ASDIRECTED PRN PRN Reason: Post Hemorrhage Metoprolol Tartrate (Lopressor) 25 mg PO DAILY [facility] Misoprostol (Cytotec) 200 mcg PO ONETIME PRN PRN Reason: Post Hemorrhage Misoprostol (Cytotec) 25 mcg VAG ONETIME PRN PRN Reason: Cervical Ripening Last Admin: 12/22/19 01:28 Dose: 25 mcg Documented by: RITA Misoprostol (Cytotec) 25 mcg PO ONETIME PRN PRN Reason: Other Last Admin: 12/22/19 01:28 Dose: 25 mcg Documented by: RITA Misoprostol (Cytotec) 25 mcg PO Q4H PRN PRN Reason: Cervical Ripening Last Admin: 12/22/19 05:51 Dose: 25 mcg Documented by: RITA Misoprostol (Cytotec) 25 mcg VAG Q4H PRN PRN Reason: Cervical Ripening Last Admin: 12/22/19 05:51 Dose: 25 mcg Documented by: RITA Nalbuphine HCl (Nubain) 10 mg IVPUSH Q1H PRN PRN Reason: Pain (severe 7-10) Ondansetron HCl (Zofran) 4 mg IVPUSH Q6H PRN PRN Reason: Nausea/Vomiting Last Admin: 12/22/19 05:46 Dose: 4 mg Documented by: RITA Sodium Chloride (Saline Flush) 10 ml FLUSH ASDIRECTED PRN PRN Reason: Keep Vein Open Sodium Chloride (Saline Flush) 2.5 ml FLUSH ASDIRECTED PRN PRN Reason: Keep Vein Open Sodium Chloride (Normal Saline) 10 ml IV ASDIRECTED PRN PRN Reason: IV Use Sterile Water (Sterile Water For Irrigation) 1,000 ml IRR ASDIRECTED PRN PRN Reason: delivery Terbutaline Sulfate (Brethine) 0.25 mg SUBCUT ASDIRECTED PRN PRN Reason: Tacysystole Assessment/Plan Comment:: Admit A: at 38 1/7 weeks (ELSIE: 01/03/20) presenting to L&D for IOL due to chronic hypertension and GDMA1. A+, RI, GBS positive. P: Admit for IOL, cytotec to pitocin, anticipate , epidural PRN, Dr. Brown updated.
[2019-12-22] MEDS ORDERED: Metoprolol Tartrate 25 MG Tab PO SCH ×2 (09:00→21:00)
[2019-12-22] MEDS: Lactated Ringers 1,000 ML IV SCH ×3 (14:55→18:17)
[2019-12-22] MEDS ORDERED: fentaNYL 100 MCG/2 ML SDV ONE (16:05)
[2019-12-22] MEDS ORDERED: Ropivacaine HCl/PF 100 ML ONE (16:06)
--- NOTE | 2019-12-22 16:57 | PCM.PREANE ---
Preanesthetic Assessment - Procedure Proposed Procedure: Continuous labor epidural - Anesthesia/Transfusion/Family Hx Anesthesia History: Prior Anesthesia Without Reaction Family History of Anesthesia Reaction: No Transfusion History: No Prior Transfusion(s) - Review of Systems General: No Symptoms Pulmonary: No Symptoms Cardiovascular: No Symptoms, Other Gastrointestinal: No Symptoms Neurological: No Symptoms Other: Reports: None - Physical Assessment NPO Status Date: 12/22/19 NPO Status Time: 16:55 (Clears) Vital Signs: Last Vital Signs Temp Pulse 79 12/22/19 09:04 Resp BP 126/75 12/22/19 09:04 Pulse Ox Height: 1.75 m Weight: 106.141 kg ASA Class: 2 Mental Status: Alert & Oriented x3 Airway Class: Mallampati = 2 Dentition: Reports: Normal Dentition Thyro-Mental Finger Breadths: 4 ROM/Head Extension: Full Lungs: Normal Respiratory Effort Cardiovascular: Regular Rate, Regular Rhythm - Lab Values: Laboratory Last Values WBC 8.72 K/uL (4.0-11.0) 12/22/19 00:25 RBC 4.60 M/uL (4.30-5.90) 12/22/19 00:25 Hgb 14.6 g/dL (12.0-16.0) 12/22/19 00:25 Hct 41.4 % (36.0-46.0) 12/22/19 00:25 MCV 90.0 fL (80.0-98.0) 12/22/19 00:25 MCH 31.7 pg (27.0-32.0) 12/22/19 00:25 MCHC 35.3 g/dL (31.0-37.0) 12/22/19 00:25 RDW Std Deviation 44.9 fl (28.0-62.0) 12/22/19 00:25 RDW Coeff of Rom 14 % (11.0-15.0) 12/22/19 00:25 Plt Count 154 K/uL (150-400) 12/22/19 00:25 MPV 12.80 fL (7.40-12.00) H 12/22/19 00:25 Nucleated RBC % 0.0 /100WBC 12/22/19 00:25 Nucleated RBCs # 0 K/uL 12/22/19 00:25 COVID-19 (JOCELYN) NEGATIVE (NEGATIVE) 12/22/19 00:29 Blood Type A POSITIVE 12/22/19 00:25 Antibody Screen NEGATIVE 12/22/19 00:25 - Allergies Allergies/Adverse Reactions: Allergies Allergy/AdvReac Type Severity Reaction Status Date / Time adhesive tape Allergy Mild Rash Verified 12/21/19 21:40 latex Allergy Mild Rash Verified 12/21/19 21:40 - Anesthesia Plan Free Text/Narrative:: Continuous labor epidural Pre-Op Medication Ordered: None - Acknowledgements Anesthesia Type Planned: Epidural Pt an Appropriate Candidate for the Planned Anesthesia: Yes Alternatives and Risks of Anesthesia Discussed w Pt/Guardian: Yes Pt/Guardian Understands and Agrees with Anesthesia Plan: Yes PreAnesthesia Questionnaire - Past Health History Medical/Surgical History: Denies Medical/Surgical History HEENT History: Reports: None Cardiovascular History: Reports: Hypertension Respiratory History: Reports: Asthma, Bronchitis, Recurrent Other Respiratory History: Childhood Asthma Gastrointestinal History: Reports: None Other Gastrointestinal History: Hyperemesis Gravidarum Genitourinary History: Reports: Other (See Below) Other Genitourinary History: Bladder Hammock, 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, 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: Reports: 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 Neurological History: Reports: None Psychiatric History: Reports: Anxiety Endocrine/Metabolic History: Reports: Diabetes, Gestational Hematologic History: Reports: None Immunologic History: Reports: None Oncologic (Cancer) History: Reports: None Dermatologic History: Reports: None - Infectious Disease History Infectious Disease History: Reports: Chicken Pox - Past Surgical History Head Surgeries/Procedures: Reports: None HEENT Surgical History: Reports: None Cardiovascular Surgical History: Reports: None Respiratory Surgical History: Reports: None Female Surgical History: Reports: Other (See Below) Other Female Surgeries/Procedures: bladder sling 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 Surgical History: Reports: None Dermatological Surgical History: Reports: Other (See Below) - SUBSTANCE USE Smoking Status *Q: Current Every Day Smoker Tobacco Use Within Last Twelve Months: Cigarettes Second Hand Smoke Exposure: No Recreational Drug Use History: No - HOME MEDS Home Medications: Home Meds Metoprolol Tartrate [Lopressor] 25 mg PO Q12H #60 tablet 03/04/19 [Rx] Aspirin [Aspirin EC] 81 mg PO DAILY 11/20/19 [History] Pnv #30/Iron Carb&Aspg/Fa/Om3 [OB Complete with DHA Softgel] 1 tab PO DAILY 11/20/19 [History] Ondansetron [Zofran] 8 mg PO Q6HR PRN 12/21/19 [History] - CURRENT (IN HOUSE) MEDS Current Meds: Current Medications Butorphanol Tartrate (Stadol) 1 mg IVPUSH Q1H PRN PRN Reason: Pain Last Admin: 12/22/19 12:53 Dose: 1 mg Documented by: Carboprost Tromethamine (Hemabate Ds) 250 mcg IM ASDIRECTED PRN PRN Reason: Post Hemorrhage Famotidine (Pepcid) 20 mg PO BID PRN PRN Reason: Heartburn Lactated Ringer's (Ringers, Lactated) 1,000 mls @ 150 mls/hr IV ASDIRECTED [facility] Last Admin: 12/22/19 16:49 Dose: 999 mls/hr Documented by: Oxytocin/Sodium Chloride (Oxytocin 30 Unit/500 Ml-Ns) 30 unit in 500 mls @ 999 mls/hr IV TITRATE [facility] Tranexamic Acid 1,000 mg/ (Sodium Chloride) 110 mls @ 660 mls/hr IV ONETIME PRN PRN Reason: Bleeding Oxytocin/Sodium Chloride (Oxytocin 30 Unit/500 Ml-Ns) 30 unit in 500 mls @ 2 mls/hr IV TITRATE [facility]; Protocol Ampicillin Sodium 1 gm/ Sodium (Chloride) 50 mls @ 100 mls/hr IV Q4H [facility] Last Admin: 12/22/19 14:05 Dose: 100 mls/hr Documented by: Lidocaine HCl (Xylocaine 1%) 50 ml INJECT ONETIME PRN PRN Reason: Laceration repair Methylergonovine Maleate (Methergine) 0.2 mg IM ASDIRECTED PRN PRN Reason: Post Hemorrhage Metoprolol Tartrate (Lopressor) 25 mg PO DAILY [facility] Last Admin: 12/22/19 09:04 Dose: 25 mg Documented by: Misoprostol (Cytotec) 200 mcg PO ONETIME PRN PRN Reason: Post Hemorrhage Misoprostol (Cytotec) 25 mcg VAG ONETIME PRN PRN Reason: Cervical Ripening Last Admin: 12/22/19 01:28 Dose: 25 mcg Documented by: Misoprostol (Cytotec) 25 mcg PO ONETIME PRN PRN Reason: Other Last Admin: 12/22/19 01:28 Dose: 25 mcg Documented by: Misoprostol (Cytotec) 25 mcg PO Q4H PRN PRN Reason: Cervical Ripening Last Admin: 12/22/19 10:10 Dose: 25 mcg Documented by: Misoprostol (Cytotec) 25 mcg VAG Q4H PRN PRN Reason: Cervical Ripening Last Admin: 12/22/19 10:10 Dose: 25 mcg Documented by: Nalbuphine HCl (Nubain) 10 mg IVPUSH Q1H PRN PRN Reason: Pain (severe 7-10) Ondansetron HCl (Zofran) 4 mg IVPUSH Q6H PRN PRN Reason: Nausea/Vomiting Last Admin: 12/22/19 12:10 Dose: 4 mg Documented by: Sodium Chloride (Saline Flush) 10 ml FLUSH ASDIRECTED PRN PRN Reason: Keep Vein Open Sodium Chloride (Saline Flush) 2.5 ml FLUSH ASDIRECTED PRN PRN Reason: Keep Vein Open Sodium Chloride (Normal Saline) 10 ml IV ASDIRECTED PRN PRN Reason: IV Use Sterile Water (Sterile Water For Irrigation) 1,000 ml IRR ASDIRECTED PRN PRN Reason: delivery Terbutaline Sulfate (Brethine) 0.25 mg SUBCUT ASDIRECTED PRN PRN Reason: Tacysystole Discontinued Medications Fentanyl (Sublimaze) Confirm Administered Dose 100 mcg .ROUTE .STK-MED ONE Stop: 12/22/19 16:06 Ampicillin Sodium 2 gm/ Sodium (Chloride) 100 mls @ 200 mls/hr IV ONETIME ONE Stop: 12/22/19 01:16 Last Admin: 12/22/19 01:28 Dose: 200 mls/hr Documented by: Ropivacaine (Naropin 0.2%) Confirm Administered Dose 100 mls @ as directed .ROUTE .STK-MED ONE Stop: 12/22/19 16:07 Misoprostol (Cytotec) 25 mcg VAG Q4H PRN PRN Reason: Cervical Ripening
--- NOTE | 2019-12-22 17:33 | PCM.PNLD ---
Labor Progress Note - VS & Meds Vital Signs: Last Vital Signs Temp Pulse 79 12/22/19 09:04 Resp BP 126/75 12/22/19 09:04 Pulse Ox Active Medications: Current Medications Butorphanol Tartrate (Stadol) 1 mg IVPUSH Q1H PRN PRN Reason: Pain Last Admin: 12/22/19 12:53 Dose: 1 mg Documented by: Carboprost Tromethamine (Hemabate Ds) 250 mcg IM ASDIRECTED PRN PRN Reason: Post Hemorrhage Famotidine (Pepcid) 20 mg PO BID PRN PRN Reason: Heartburn Lactated Ringer's (Ringers, Lactated) 1,000 mls @ 150 mls/hr IV ASDIRECTED [facility] Last Admin: 12/22/19 16:49 Dose: 999 mls/hr Documented by: Oxytocin/Sodium Chloride (Oxytocin 30 Unit/500 Ml-Ns) 30 unit in 500 mls @ 999 mls/hr IV TITRATE [facility] Tranexamic Acid 1,000 mg/ (Sodium Chloride) 110 mls @ 660 mls/hr IV ONETIME PRN PRN Reason: Bleeding Oxytocin/Sodium Chloride (Oxytocin 30 Unit/500 Ml-Ns) 30 unit in 500 mls @ 2 mls/hr IV TITRATE [facility]; Protocol Ampicillin Sodium 1 gm/ Sodium (Chloride) 50 mls @ 100 mls/hr IV Q4H [facility] Last Admin: 12/22/19 14:05 Dose: 100 mls/hr Documented by: Lidocaine HCl (Xylocaine 1%) 50 ml INJECT ONETIME PRN PRN Reason: Laceration repair Methylergonovine Maleate (Methergine) 0.2 mg IM ASDIRECTED PRN PRN Reason: Post Hemorrhage Metoprolol Tartrate (Lopressor) 25 mg PO DAILY [facility] Last Admin: 12/22/19 09:04 Dose: 25 mg Documented by: Misoprostol (Cytotec) 200 mcg PO ONETIME PRN PRN Reason: Post Hemorrhage Misoprostol (Cytotec) 25 mcg VAG ONETIME PRN PRN Reason: Cervical Ripening Last Admin: 12/22/19 01:28 Dose: 25 mcg Documented by: Misoprostol (Cytotec) 25 mcg PO ONETIME PRN PRN Reason: Other Last Admin: 12/22/19 01:28 Dose: 25 mcg Documented by: Misoprostol (Cytotec) 25 mcg PO Q4H PRN PRN Reason: Cervical Ripening Last Admin: 12/22/19 10:10 Dose: 25 mcg Documented by: Misoprostol (Cytotec) 25 mcg VAG Q4H PRN PRN Reason: Cervical Ripening Last Admin: 12/22/19 10:10 Dose: 25 mcg Documented by: Nalbuphine HCl (Nubain) 10 mg IVPUSH Q1H PRN PRN Reason: Pain (severe 7-10) Ondansetron HCl (Zofran) 4 mg IVPUSH Q6H PRN PRN Reason: Nausea/Vomiting Last Admin: 12/22/19 12:10 Dose: 4 mg Documented by: Sodium Chloride (Saline Flush) 10 ml FLUSH ASDIRECTED PRN PRN Reason: Keep Vein Open Sodium Chloride (Saline Flush) 2.5 ml FLUSH ASDIRECTED PRN PRN Reason: Keep Vein Open Sodium Chloride (Normal Saline) 10 ml IV ASDIRECTED PRN PRN Reason: IV Use Sterile Water (Sterile Water For Irrigation) 1,000 ml IRR ASDIRECTED PRN PRN Reason: delivery Terbutaline Sulfate (Brethine) 0.25 mg SUBCUT ASDIRECTED PRN PRN Reason: Tacysystole Discontinued Medications Fentanyl (Sublimaze) Confirm Administered Dose 100 mcg .ROUTE .STK-MED ONE Stop: 12/22/19 16:06 Ampicillin Sodium 2 gm/ Sodium (Chloride) 100 mls @ 200 mls/hr IV ONETIME ONE Stop: 12/22/19 01:16 Last Admin: 12/22/19 01:28 Dose: 200 mls/hr Documented by: Ropivacaine (Naropin 0.2%) Confirm Administered Dose 100 mls @ as directed .ROUTE .STK-MED ONE Stop: 12/22/19 16:07 Misoprostol (Cytotec) 25 mcg VAG Q4H PRN PRN Reason: Cervical Ripening - Uterine Contractions Contraction Intensity: Mild to Moderate Uterine Resting Tone: Soft - Monitoring Heart Rate (FHR) Variability: Moderate (6-25 bmp) - Vaginal Exam Dilation (cm): 3 Effacement (Percent): 60 Station: -3 Cervical Position: Midposition Sterile Vaginal Exam Performed By: Celsa Wilkinson - Labor Progress (Free Text) Labor Progress: AROM @1720, copious clear fluid, 3cm/60%/-3, midposition; epidural in place for pain relief; plan to start pitocin; Dr. Brown updated
[2019-12-22] MEDS ORDERED: Calcium Carbonate 500 MG Tab.Chew ONE (20:27)
[2019-12-22] MEDS ORDERED: Calcium Carbonate 500 MG Tab.Chew PO PRN (20:36)
--- NOTE | 2019-12-22 22:08 | PCM.DEL ---
L & D Note - General Info Date of Service: 12/22/19 - Delivery Note Labor: Augmented by ARM, Augmented by Oxytocin Cervical Ripening Method: Misoprostil, Oxytocin Delivery Outcome: Livebirth Infant Delivery Method: Spontaneous Vaginal Delivery-Single Presentation: Vertex Nuchal Cord: Present, Reduced (x1) Anesthesia Type: Epidural Amniotic Fluid Description: Clear Episiotomy Type: None Laceration: None Placenta: Intact, Spontaneous Cord: 3 Vessels Estimated Blood Loss: 350 Resuscitation Needed: No Score 1 min: 7 Score 5 min: 9 Second Stage Interventions: Reports: Second Nurse Assessed Progress of Descent, Second Nurse Reviewed Contraction Pattern, Second Nurse Reviewed Heart Tones, Encouragement Given, Pushing Effectively, Pushing, Pulls Own Legs Back Delivery Comments (Free Text/Narrative):: viable NBM; head delivered with good pushing, shoulders followed easily after; nuchal x1, reduced; baby to mom's abdomen [id number] for assessment; APGARs 7/9; cord doubly clamped, cut by FOB after 3 minutes; baby 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 - General Info Date of Service: 12/22/19 Admission Dx/Problem (Free Text): Patient Status Order with Admit Dx/Problem 12/22/19 00:47 Patient Status [ADT] Routine Admission Diagnosis/Problem Admission Diagnosis/Problem 12/22/19 08:11 at 38 1/7 weeks (ELSIE: [birth year]) presenting to L&D for IOL due to chronic hypertension and GDMA1. A+, RI, GBS positive. Functional Status: Reports: Pain Controlled - Review of Systems General: Reports: No Symptoms HEENT: Reports: No Symptoms Pulmonary: Reports: No Symptoms Cardiovascular: Reports: No Symptoms Gastrointestinal: Reports: No Symptoms Genitourinary: Reports: No Symptoms 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: Reports: No Symptoms Skin: Reports: No Symptoms Neurological: Reports: No Symptoms Psychiatric: Reports: No Symptoms - Patient Data Vitals - Most Recent: Last Vital Signs Temp Pulse 76 12/22/19 19:47 Resp BP 139/94 H 12/22/19 19:47 Pulse Ox Weight - Most Recent: 234 lb I&O - Last 24 Hours: Intake & Output 12/22/19 12/22/19 12/22/19 06:59 14:59 22:59 Intake Total 150 700 Balance 150 700 Lab Results Last 24 Hours: Laboratory Results - last 24 hr 12/22/19 12/22/19 12/22/19 Range/Units 00:25 00:25 00:29 WBC 8.72 (4.0-11.0) K/uL RBC 4.60 (4.30-5.90) M/uL Hgb 14.6 (12.0-16.0) g/dL Hct 41.4 (36.0-46.0) % MCV 90.0 (80.0-98.0) fL MCH 31.7 (27.0-32.0) pg MCHC 35.3 (31.0-37.0) g/dL RDW Std Deviation 44.9 (28.0-62.0) fl RDW Coeff of Rom 14 (11.0-15.0) % Plt Count 154 (150-400) K/uL MPV 12.80 H (7.40-12.00) fL Nucleated RBC % 0.0 /100WBC Nucleated RBCs # 0 K/uL COVID-19 (JOCELYN) NEGATIVE (NEGATIVE) Blood Type A POSITIVE Antibody Screen NEGATIVE Med Orders - Current: Current Medications Butorphanol Tartrate (Stadol) 1 mg IVPUSH Q1H PRN PRN Reason: Pain Last Admin: 12/22/19 12:53 Dose: 1 mg Documented by: Calcium Carbonate/Glycine (Tums) 1,000 mg PO Q2HR PRN PRN Reason: Indigestion Last Admin: 12/22/19 20:28 Dose: 1,000 mg Documented by: Carboprost Tromethamine (Hemabate Ds) 250 mcg IM ASDIRECTED PRN PRN Reason: Post Hemorrhage Famotidine (Pepcid) 20 mg PO BID PRN PRN Reason: Heartburn Last Admin: 12/22/19 19:48 Dose: 20 mg Documented by: Lactated Ringer's (Ringers, Lactated) 1,000 mls @ 150 mls/hr IV ASDIRECTED ALENA Last Admin: 12/22/19 18:17 Dose: 150 mls/hr Documented by: Oxytocin/Sodium Chloride (Oxytocin 30 Unit/500 Ml-Ns) 30 unit in 500 mls @ 999 mls/hr IV TITRATE [facility] Tranexamic Acid 1,000 mg/ (Sodium Chloride) 110 mls @ 660 mls/hr IV ONETIME PRN PRN Reason: Bleeding Oxytocin/Sodium Chloride (Oxytocin 30 Unit/500 Ml-Ns) 30 unit in 500 mls @ 2 mls/hr IV TITRATE [facility]; Protocol Last Titration: 12/22/19 21:37 Dose: 500 munits/min, 500 mls/hr Documented by: Ampicillin Sodium 1 gm/ Sodium (Chloride) 50 mls @ 100 mls/hr IV Q4H [facility] Last Admin: 12/22/19 17:45 Dose: 100 mls/hr Documented by: Lidocaine HCl (Xylocaine 1%) 50 ml INJECT ONETIME PRN PRN Reason: Laceration repair Methylergonovine Maleate (Methergine) 0.2 mg IM ASDIRECTED PRN PRN Reason: Post Hemorrhage Metoprolol Tartrate (Lopressor) 25 mg PO BID [facility] Last Admin: 12/22/19 19:47 Dose: 25 mg Documented by: Misoprostol (Cytotec) 200 mcg PO ONETIME PRN PRN Reason: Post Hemorrhage Misoprostol (Cytotec) 25 mcg VAG ONETIME PRN PRN Reason: Cervical Ripening Last Admin: 12/22/19 01:28 Dose: 25 mcg Documented by: Misoprostol (Cytotec) 25 mcg PO ONETIME PRN PRN Reason: Other Last Admin: 12/22/19 01:28 Dose: 25 mcg Documented by: Misoprostol (Cytotec) 25 mcg PO Q4H PRN PRN Reason: Cervical Ripening Last Admin: 12/22/19 10:10 Dose: 25 mcg Documented by: Misoprostol (Cytotec) 25 mcg VAG Q4H PRN PRN Reason: Cervical Ripening Last Admin: 12/22/19 10:10 Dose: 25 mcg Documented by: Nalbuphine HCl (Nubain) 10 mg IVPUSH Q1H PRN PRN Reason: Pain (severe 7-10) Ondansetron HCl (Zofran) 4 mg IVPUSH Q6H PRN PRN Reason: Nausea/Vomiting Last Admin: 12/22/19 12:10 Dose: 4 mg Documented by: Sodium Chloride (Saline Flush) 10 ml FLUSH ASDIRECTED PRN PRN Reason: Keep Vein Open Sodium Chloride (Saline Flush) 2.5 ml FLUSH ASDIRECTED PRN PRN Reason: Keep Vein Open Sodium Chloride (Normal Saline) 10 ml IV ASDIRECTED PRN PRN Reason: IV Use Sterile Water (Sterile Water For Irrigation) 1,000 ml IRR ASDIRECTED PRN PRN Reason: delivery Terbutaline Sulfate (Brethine) 0.25 mg SUBCUT ASDIRECTED PRN PRN Reason: Tacysystole Discontinued Medications Calcium Carbonate/Glycine (Tums) Confirm Administered Dose 1,000 mg .ROUTE .STK- MED ONE Stop: 12/22/19 20:28 Fentanyl (Sublimaze) Confirm Administered Dose 100 mcg .ROUTE .STK-MED ONE Stop: 12/22/19 16:06 Ampicillin Sodium 2 gm/ Sodium (Chloride) 100 mls @ 200 mls/hr IV ONETIME ONE Stop: 12/22/19 01:16 Last Admin: 12/22/19 01:28 Dose: 200 mls/hr Documented by: Ropivacaine (Naropin 0.2%) Confirm Administered Dose 100 mls @ as directed .ROUTE .STK-MED ONE Stop: 12/22/19 16:07 Metoprolol Tartrate (Lopressor) 25 mg PO DAILY [facility] Last Admin: 12/22/19 09:04 Dose: 25 mg Documented by: Misoprostol (Cytotec) 25 mcg VAG Q4H PRN PRN Reason: Cervical Ripening - Exam General: Alert, Oriented, Cooperative, No Acute Distress Lungs: Normal Respiratory Effort Cardiovascular: Regular Rate, Regular Rhythm GI/Abdominal Exam: Soft, Non-Tender (Female) Exam: Normal External Exam, Normal Bimanual Exam Back Exam: Normal Inspection Extremities: Normal Inspection Skin: Warm, Dry, Intact Neurological: No New Focal Deficit, Normal Speech Psy/Mental Status: Alert, Normal Affect, Normal Mood - Problem List & Annotations (1) Supervision of normal IUP (intrauterine ) in multigravida SNOMED Code(s): 271907568, 997818254, 874514634 Code(s): Z34.80 - ENCOUNTER FOR SUPRVSN OF NORMAL , UNSP TRIMESTER Status: Acute Priority: High Current Visit: Yes Qualifiers: Trimester: third trimester Qualified Code(s): Z34.83 - Encounter for supervision of other normal , third trimester (2) GDM (gestational diabetes mellitus), class A1 SNOMED Code(s): 36660658 Code(s): O24.410 - GESTATIONAL DIABETES MELLITUS IN , DIET CONTROLLED Status: Acute Priority: High Current Visit: Yes (3) Chronic hypertension SNOMED Code(s): 55231373, 04017922 Code(s): I10 - ESSENTIAL (PRIMARY) HYPERTENSION Status: Acute Priority: High Current Visit: Yes (4) (spontaneous vaginal delivery) SNOMED Code(s): 473477003 Code(s): O80 - ENCOUNTER FOR FULL-TERM UNCOMPLICATED DELIVERY Status: Acute Priority: High Current Visit: Yes - Problem List Review Problem List Initiated/Reviewed/Updated: Yes - My Orders Last 24 Hours: My Active Orders 12/22/19 08:01 Famotidine [Pepcid] 20 mg PO BID PRN 12/22/19 20:36 Calcium Carbonate [Tums] 1,000 mg PO Q2HR PRN 12/22/19 21:00 Metoprolol Tartrate [Lopressor] 25 mg PO BID - Plan Plan:: Admit A: at 38 1/7 weeks (ELSIE: [birth year]) presenting to L&D for IOL due to chronic hypertension and GDMA1. A+, RI, GBS positive. P: Admit for IOL, cytotec to pitocin, anticipate , epidural PRN, Dr. Brown updated. Delivery A: viable NBM; epidural for pain relief; nuchal x1, reduced; baby to mom's abdomen [id number] for assessment; APGARs 7/9; cord doubly clamped, cut by FOB after 3 minutes; weight: 6 lbs 11 oz; placenta delivered grossly intact; 3VC; EBL 350 mL; pitocin to IVF; perineum intact; baby returned to mom's chest [id number]; attempted; mom and baby left in stable condition with nurse at bedside for assessment. P: Routine plan of care; Dr. Brown updated.
[2019-12-22] MEDS ORDERED: Witch Hazel Medicated Pads 40/Jar TOP PRN (22:18)
[2019-12-22] MEDS ORDERED: Bisacodyl 10 MG Supp RECTAL PRN (22:18)
[2019-12-22] MEDS ORDERED: Lanolin 100% Cream 7 GM Tube TOP PRN (22:18)
[2019-12-22] MEDS ORDERED: Ibuprofen 400 MG Tab PO PRN (22:18)
[2019-12-22] MEDS ORDERED: oxyCODONE 5 MG Tab PO PRN (22:18)
[2019-12-22] MEDS ORDERED: Acetaminophen 500 MG Tab PO PRN (22:18)
[2019-12-22] MEDS ORDERED: Benzocaine/Menthol 20%-0.5% Spray 78 GM Cannister TOP PRN (22:18)
[2019-12-23] MEDS: Acetaminophen 500 MG Tab PO PRN ×3 (03:38→15:25)
[2019-12-23] MEDS: Ampicillin 1 GM in Sodium Chloride 0.9% 50 ML IV SCH (03:49)
[2019-12-23] MEDS: Docusate Sodium 100 MG Cap PO PRN (08:53)
[2019-12-23] MEDS: Metoprolol Tartrate 25 MG Tab PO SCH ×2 (08:53→19:58)
--- NOTE | 2019-12-23 08:58 | PCM.PNPP ---
- General Info Date of Service: 12/23/19 Functional Status: Reports: Pain Controlled - Review of Systems General: Reports: No Symptoms HEENT: Reports: No Symptoms Pulmonary: Reports: No Symptoms Cardiovascular: Reports: No Symptoms Gastrointestinal: Reports: No Symptoms Genitourinary: Reports: No Symptoms 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: Reports: No Symptoms Skin: Reports: No Symptoms Neurological: Reports: No Symptoms Psychiatric: Reports: No Symptoms - General Info Date of Service: 12/23/19 - Patient Data Vital Signs - Most Recent: Last Vital Signs Temp 37.0 C 12/23/19 03:51 Pulse 71 12/23/19 08:53 Resp 16 12/23/19 03:51 BP 137/88 12/23/19 08:53 Pulse Ox 96 12/23/19 03:51 Weight - Most Recent: 106.141 kg I&O - Last 24 Hours: Intake & Output 12/22/19 12/23/19 12/23/19 22:59 06:59 14:59 Intake Total 700 500 Balance 700 500 Lab Results - Last 24 Hours: Laboratory Results - last 24 hr 12/23/19 Range/Units 06:08 Hgb 12.0 (12.0-16.0) g/dL Hct 35.9 L (36.0-46.0) % Med Orders - Current: Current Medications Acetaminophen (Tylenol Extra Strength) 500 mg PO Q4H PRN PRN Reason: Pain Acetaminophen (Tylenol Extra Strength) 1,000 mg PO Q4H PRN PRN Reason: Pain Last Admin: 12/23/19 08:53 Dose: 1,000 mg Documented by: Benzocaine/Menthol (Dermoplast Pain Relief 20%-0.5% Stanton) 78 gm TOP ASDIRECTED PRN PRN Reason: Perineal Comfort Measure Last Admin: 12/23/19 00:02 Dose: 1 canister Documented by: Bisacodyl (Dulcolax) 10 mg RECTAL ONETIME PRN PRN Reason: Constipation Docusate Sodium (Colace) 100 mg PO BID PRN PRN Reason: Constipation Last Admin: 12/23/19 08:53 Dose: 100 mg Documented by: Emollient Ointment (Lansinoh Hpa) 0 gm TOP ASDIRECTED PRN PRN Reason: Sore Nipples Last Admin: 12/23/19 00:01 Dose: 1 tube Documented by: Ibuprofen (Motrin) 800 mg PO Q6H PRN PRN Reason: Pain Metoprolol Tartrate (Lopressor) 25 mg PO Q12H ALENA Last Admin: 12/23/19 08:53 Dose: 25 mg Documented by: Oxycodone HCl (Oxycodone) 5 mg PO Q2H PRN PRN Reason: Pain Witch Elsa (Tucks) 1 pad TOP ASDIRECTED PRN PRN Reason: comfort care Discontinued Medications Butorphanol Tartrate (Stadol) 1 mg IVPUSH Q1H PRN PRN Reason: Pain Last Admin: 12/22/19 12:53 Dose: 1 mg Documented by: Calcium Carbonate/Glycine (Tums) Confirm Administered Dose 1,000 mg .ROUTE .STK- MED ONE Stop: 12/22/19 20:28 Last Admin: 12/23/19 03:39 Dose: Not Given Documented by: Calcium Carbonate/Glycine (Tums) 1,000 mg PO Q2HR PRN PRN Reason: Indigestion Last Admin: 12/22/19 20:28 Dose: 1,000 mg Documented by: Carboprost Tromethamine (Hemabate Ds) 250 mcg IM ASDIRECTED PRN PRN Reason: Post Hemorrhage Famotidine (Pepcid) 20 mg PO BID PRN PRN Reason: Heartburn Last Admin: 12/22/19 19:48 Dose: 20 mg Documented by: Fentanyl (Sublimaze) Confirm Administered Dose 100 mcg .ROUTE .STK-MED ONE Stop: 12/22/19 16:06 Last Admin: 12/23/19 03:39 Dose: Not Given Documented by: Lactated Ringer's (Ringers, Lactated) 1,000 mls @ 150 mls/hr IV ASDIRECTED ALENA Last Admin: 12/22/19 18:17 Dose: 150 mls/hr Documented by: Oxytocin/Sodium Chloride (Oxytocin 30 Unit/500 Ml-Ns) 30 unit in 500 mls @ 999 mls/hr IV TITRATE [facility] Tranexamic Acid 1,000 mg/ (Sodium Chloride) 110 mls @ 660 mls/hr IV ONETIME PRN PRN Reason: Bleeding Oxytocin/Sodium Chloride (Oxytocin 30 Unit/500 Ml-Ns) 30 unit in 500 mls @ 2 mls/hr IV TITRATE [facility]; Protocol Last Titration: 12/22/19 21:37 Dose: 500 munits/min, 500 mls/hr Documented by: Ampicillin Sodium 2 gm/ Sodium (Chloride) 100 mls @ 200 mls/hr IV ONETIME ONE Stop: 12/22/19 01:16 Last Admin: 12/22/19 01:28 Dose: 200 mls/hr Documented by: Ampicillin Sodium 1 gm/ Sodium (Chloride) 50 mls @ 100 mls/hr IV Q4H [facility] Last Admin: 12/23/19 03:49 Dose: Not Given Documented by: Ropivacaine (Naropin 0.2%) Confirm Administered Dose 100 mls @ as directed .ROUTE .STK-MED ONE Stop: 12/22/19 16:07 Last Admin: 12/23/19 03:49 Dose: Not Given Documented by: Ibuprofen (Motrin) 400 mg PO Q4H PRN PRN Reason: Pain Last Admin: 12/23/19 06:26 Dose: 400 mg Documented by: Lidocaine HCl (Xylocaine 1%) 50 ml INJECT ONETIME PRN PRN Reason: Laceration repair Methylergonovine Maleate (Methergine) 0.2 mg IM ASDIRECTED PRN PRN Reason: Post Hemorrhage Metoprolol Tartrate (Lopressor) 25 mg PO DAILY [facility] Last Admin: 12/22/19 09:04 Dose: 25 mg Documented by: Metoprolol Tartrate (Lopressor) 25 mg PO BID [facility] Last Admin: 12/22/19 19:47 Dose: 25 mg Documented by: Misoprostol (Cytotec) 200 mcg PO ONETIME PRN PRN Reason: Post Hemorrhage Misoprostol (Cytotec) 25 mcg VAG ONETIME PRN PRN Reason: Cervical Ripening Last Admin: 12/22/19 01:28 Dose: 25 mcg Documented by: Misoprostol (Cytotec) 25 mcg VAG Q4H PRN PRN Reason: Cervical Ripening Misoprostol (Cytotec) 25 mcg PO ONETIME PRN PRN Reason: Other Last Admin: 12/22/19 01:28 Dose: 25 mcg Documented by: Misoprostol (Cytotec) 25 mcg PO Q4H PRN PRN Reason: Cervical Ripening Last Admin: 12/22/19 10:10 Dose: 25 mcg Documented by: Misoprostol (Cytotec) 25 mcg VAG Q4H PRN PRN Reason: Cervical Ripening Last Admin: 12/22/19 10:10 Dose: 25 mcg Documented by: Nalbuphine HCl (Nubain) 10 mg IVPUSH Q1H PRN PRN Reason: Pain (severe 7-10) Ondansetron HCl (Zofran) 4 mg IVPUSH Q6H PRN PRN Reason: Nausea/Vomiting Last Admin: 12/22/19 12:10 Dose: 4 mg Documented by: Sodium Chloride (Saline Flush) 10 ml FLUSH ASDIRECTED PRN PRN Reason: Keep Vein Open Sodium Chloride (Saline Flush) 2.5 ml FLUSH ASDIRECTED PRN PRN Reason: Keep Vein Open Sodium Chloride (Normal Saline) 10 ml IV ASDIRECTED PRN PRN Reason: IV Use Sterile Water (Sterile Water For Irrigation) 1,000 ml IRR ASDIRECTED PRN PRN Reason: delivery Terbutaline Sulfate (Brethine) 0.25 mg SUBCUT ASDIRECTED PRN PRN Reason: Tacysystole - Interaction Infant Disposition, : to Nursery - Recovery Exam Fundal Tone: Firm Fundal Level: 1 Fingerbreadths Above Umbilicus Fundal Placement: Midline Lochia Amount: Scant Lochia Color: Rubra/Red Perineum Description: Intact, Minimal Bruising/Swelling Episiotomy/Laceration: None Bladder Status: Voiding - Exam General: Alert, Oriented HEENT: Pupils Equal Neck: Supple Lungs: Clear to Auscultation, Normal Respiratory Effort Cardiovascular: Regular Rate, Regular Rhythm GI/Abdominal Exam: Normal Bowel Sounds, Soft, Non-Tender, No Organomegaly, No Distention, No Abnormal Bruit, No Mass, Pelvis Stable Extremities: Normal Inspection, Normal Range of Motion, Non-Tender, No Pedal Edema, Normal Capillary Refill Skin: Warm, Dry, Intact Wound/Incisions: Healing Well Neurological: No New Focal Deficit Psy/Mental Status: Alert, Normal Affect, Normal Mood - Problem List Review Problem List Initiated/Reviewed/Updated: Yes - Plan Plan:: Admit A: at 38 1/7 weeks (ELSIE: [birth year]) presenting to L&D for IOL due to chronic hypertension and GDMA1. A+, RI, GBS positive. P: Admit for IOL, cytotec to pitocin, anticipate , epidural PRN, Dr. Brown updated. Delivery A: viable NBM; epidural for pain relief; nuchal x1, reduced; baby to mom's abdomen [id number] for assessment; APGARs 7/9; cord doubly clamped, cut by FOB after 3 minutes; weight: 6 lbs 11 oz; placenta delivered grossly intact; 3VC; EBL 350 mL; pitocin to IVF; perineum intact; baby returned to mom's chest [id number]; attempted; mom and baby left in stable condition with nurse at bedside for assessment. P: Routine plan of care; Dr. Brown updated.
[2019-12-23] MEDS: Ibuprofen 800 MG Tab PO PRN ×2 (12:05→19:57)
--- NOTE | 2019-12-23 12:30 | PCM48HPAN ---
Post Anesthesia Note - EVALUATION WITHIN 48HRS OF ANESTHETIC Vital Signs in Normal Range: Yes Patient Participated in Evaluation: Yes Respiratory Function Stable: Yes Airway Patent: Yes Cardiovascular Function Stable: Yes Hydration Status Stable: Yes Pain Control Satisfactory: Yes (3/10 pain, reports adequate pain control, appears calm/relaxed.) Nausea and Vomiting Control Satisfactory: Yes Mental Status Recovered: Yes Vital Signs: Last Vital Signs Temp 36.3 C 12/23/19 08:00 Pulse 71 12/23/19 08:53 Resp 17 12/23/19 08:00 BP 137/88 12/23/19 08:53 Pulse Ox 98 12/23/19 08:00 - COMMENTS/OBSERVATIONS Free Text/Narrative:: Patient observed ambulating well. Reports full return of sensation and strength to BLE. Denies headache.
[2019-12-24] MEDS: Ibuprofen 800 MG Tab PO PRN ×2 (04:20→12:59)
[2019-12-24] MEDS: Docusate Sodium 100 MG Cap PO PRN (07:43)
[2019-12-24] MEDS: Metoprolol Tartrate 25 MG Tab PO SCH (07:43)
--- NOTE | 2019-12-24 09:31 | PCM.DCSUM1 ---
Discharge Summary - Hospital Course Free Text/Narrative:: Discharge home with infant. Follow up in 6 weeks for visit. Diagnosis: Stroke: No Modified [place] Scale: No Symptoms at All Modified [place] Scale Score: 0 - Discharge Data Discharge Date: 12/24/19 Discharge Disposition: Home, Self-Care 01 Condition: Good - Referral to Home Health Primary Care Physician: PCP None - Discharge Diagnosis/Problem(s) (1) (spontaneous vaginal delivery) SNOMED Code(s): 137038217 ICD Code: O80 - ENCOUNTER FOR FULL-TERM UNCOMPLICATED DELIVERY Status: Acute Priority: High Current Visit: Yes (2) Supervision of normal IUP (intrauterine ) in multigravida SNOMED Code(s): 311442648, 716482959, 460060904 ICD Code: Z34.80 - ENCOUNTER FOR SUPRVSN OF NORMAL , UNSP TRIMESTER Status: Acute Priority: High Current Visit: Yes Qualifiers: Trimester: third trimester Qualified Code(s): Z34.83 - Encounter for supervision of other normal , third trimester - Patient Instructions Diet: Usual Diet as Tolerated Activity: As Tolerated, No Strenuous Activities, Rest and Relax Today Driving: May Drive Today Showering/Bathing: May Shower Notify Provider of: Fever, Increased Pain, Swelling and Redness, Nausea and/or Vomiting Other/Special Instructions: Discharge home with infant. Follow up in 6 weeks for visit. - Discharge Plan *PRESCRIPTION DRUG MONITORING PROGRAM REVIEWED*: Not Applicable *COPY OF PRESCRIPTION DRUG MONITORING REPORT IN PATIENT [place]: Not Applicable Home Medications: Home Meds Metoprolol Tartrate [Lopressor] 25 mg PO Q12H #60 tablet 03/04/19 [Rx] Aspirin [Aspirin EC] 81 mg PO DAILY 11/20/19 [History] Pnv #30/Iron Carb&Aspg/Fa/Om3 [OB Complete with DHA Softgel] 1 tab PO DAILY 11/20/19 [History] Ondansetron [Zofran] 8 mg PO Q6HR PRN 12/21/19 [History] Oxygen Therapy Mode: Room Air Referrals: [facility] [Outside] Choco Brown MD [Physician] - 02/02/20 2:45 pm - Discharge Summary/Plan Comment DC Time >30 min.: Yes - General Info Date of Service: 12/24/19 Admission Dx/Problem (Free Text: Patient Status Order with Admit Dx/Problem 12/22/19 00:47 Patient Status [ADT] Routine Admission Diagnosis/Problem Admission Diagnosis/Problem 12/22/19 08:11 at 38 1/7 weeks (ELSIE: 01/03/20) presenting to L&D for IOL due to chronic hypertension and GDMA1. A+, RI, GBS positive. Functional Status: Reports: Pain Controlled, Tolerating Diet, Ambulating, Urinating - Review of Systems General: Reports: No Symptoms HEENT: Reports: No Symptoms Pulmonary: Reports: No Symptoms Cardiovascular: Reports: No Symptoms Gastrointestinal: Reports: No Symptoms Genitourinary: Reports: No Symptoms 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: Reports: No Symptoms Skin: Reports: No Symptoms Neurological: Reports: No Symptoms Psychiatric: Reports: No Symptoms - Patient Data Vitals - Most Recent: Last Vital Signs Temp 36.3 C 12/24/19 07:39 Pulse 69 12/24/19 07:43 Resp 15 12/24/19 07:39 BP 122/77 12/24/19 07:43 Pulse Ox 96 12/24/19 07:39 Weight - Most Recent: 106.141 kg Med Orders - Current: Current Medications Acetaminophen (Tylenol Extra Strength) 500 mg PO Q4H PRN PRN Reason: Pain Acetaminophen (Tylenol Extra Strength) 1,000 mg PO Q4H PRN PRN Reason: Pain Last Admin: 12/23/19 15:25 Dose: 1,000 mg Documented by: Benzocaine/Menthol (Dermoplast Pain Relief 20%-0.5% [place]) 78 gm TOP ASDIRECTED PRN PRN Reason: Perineal Comfort Measure Last Admin: 12/23/19 00:02 Dose: 1 canister Documented by: Bisacodyl (Dulcolax) 10 mg RECTAL ONETIME PRN PRN Reason: Constipation Docusate Sodium (Colace) 100 mg PO BID PRN PRN Reason: Constipation Last Admin: 12/24/19 07:43 Dose: 100 mg Documented by: Emollient Ointment (Lansinoh Hpa) 0 gm TOP ASDIRECTED PRN PRN Reason: Sore Nipples Last Admin: 12/23/19 00:01 Dose: 1 tube Documented by: Ibuprofen (Motrin) 800 mg PO Q6H PRN PRN Reason: Pain Last Admin: 12/24/19 04:20 Dose: 800 mg Documented by: Metoprolol Tartrate (Lopressor) 25 mg PO Q12H ALENA Last Admin: 12/24/19 07:43 Dose: 25 mg Documented by: Oxycodone HCl (Oxycodone) 5 mg PO Q2H PRN PRN Reason: Pain Witch Elsa (Tucks) 1 pad TOP ASDIRECTED PRN PRN Reason: comfort care Discontinued Medications Butorphanol Tartrate (Stadol) 1 mg IVPUSH Q1H PRN PRN Reason: Pain Last Admin: 12/22/19 12:53 Dose: 1 mg Documented by: Calcium Carbonate/Glycine (Tums) Confirm Administered Dose 1,000 mg .ROUTE .STK- MED ONE Stop: 12/22/19 20:28 Last Admin: 12/23/19 03:39 Dose: Not Given Documented by: Calcium Carbonate/Glycine (Tums) 1,000 mg PO Q2HR PRN PRN Reason: Indigestion Last Admin: 12/22/19 20:28 Dose: 1,000 mg Documented by: Carboprost Tromethamine (Hemabate Ds) 250 mcg IM ASDIRECTED PRN PRN Reason: Post Hemorrhage Famotidine (Pepcid) 20 mg PO BID PRN PRN Reason: Heartburn Last Admin: 12/22/19 19:48 Dose: 20 mg Documented by: Fentanyl (Sublimaze) Confirm Administered Dose 100 mcg .ROUTE .STK-MED ONE Stop: 12/22/19 16:06 Last Admin: 12/23/19 03:39 Dose: Not Given Documented by: Lactated Ringer's (Ringers, Lactated) 1,000 mls @ 150 mls/hr IV ASDIRECTED ALENA Last Admin: 12/22/19 18:17 Dose: 150 mls/hr Documented by: Oxytocin/Sodium Chloride (Oxytocin 30 Unit/500 Ml-Ns) 30 unit in 500 mls @ 999 mls/hr IV TITRATE ALENA Tranexamic Acid 1,000 mg/ (Sodium Chloride) 110 mls @ 660 mls/hr IV ONETIME PRN PRN Reason: Bleeding Oxytocin/Sodium Chloride (Oxytocin 30 Unit/500 Ml-Ns) 30 unit in 500 mls @ 2 mls/hr IV TITRATE ALENA; Protocol Last Titration: 12/22/19 21:37 Dose: 500 munits/min, 500 mls/hr Documented by: Ampicillin Sodium 2 gm/ Sodium (Chloride) 100 mls @ 200 mls/hr IV ONETIME ONE Stop: 12/22/19 01:16 Last Admin: 12/22/19 01:28 Dose: 200 mls/hr Documented by: Ampicillin Sodium 1 gm/ Sodium (Chloride) 50 mls @ 100 mls/hr IV Q4H [facility] Last Admin: 12/23/19 03:49 Dose: Not Given Documented by: Ropivacaine (Naropin 0.2%) Confirm Administered Dose 100 mls @ as directed .ROUTE .STK-MED ONE Stop: 12/22/19 16:07 Last Admin: 12/23/19 03:49 Dose: Not Given Documented by: Ibuprofen (Motrin) 400 mg PO Q4H PRN PRN Reason: Pain Last Admin: 12/23/19 06:26 Dose: 400 mg Documented by: Lidocaine HCl (Xylocaine 1%) 50 ml INJECT ONETIME PRN PRN Reason: Laceration repair Methylergonovine Maleate (Methergine) 0.2 mg IM ASDIRECTED PRN PRN Reason: Post Hemorrhage Metoprolol Tartrate (Lopressor) 25 mg PO DAILY [facility] Last Admin: 12/22/19 09:04 Dose: 25 mg Documented by: Metoprolol Tartrate (Lopressor) 25 mg PO BID [facility] Last Admin: 12/22/19 19:47 Dose: 25 mg Documented by: Misoprostol (Cytotec) 200 mcg PO ONETIME PRN PRN Reason: Post Hemorrhage Misoprostol (Cytotec) 25 mcg VAG ONETIME PRN PRN Reason: Cervical Ripening Last Admin: 12/22/19 01:28 Dose: 25 mcg Documented by: Misoprostol (Cytotec) 25 mcg VAG Q4H PRN PRN Reason: Cervical Ripening Misoprostol (Cytotec) 25 mcg PO ONETIME PRN PRN Reason: Other Last Admin: 12/22/19 01:28 Dose: 25 mcg Documented by: Misoprostol (Cytotec) 25 mcg PO Q4H PRN PRN Reason: Cervical Ripening Last Admin: 12/22/19 10:10 Dose: 25 mcg Documented by: Misoprostol (Cytotec) 25 mcg VAG Q4H PRN PRN Reason: Cervical Ripening Last Admin: 12/22/19 10:10 Dose: 25 mcg Documented by: Nalbuphine HCl (Nubain) 10 mg IVPUSH Q1H PRN PRN Reason: Pain (severe 7-10) Ondansetron HCl (Zofran) 4 mg IVPUSH Q6H PRN PRN Reason: Nausea/Vomiting Last Admin: 12/22/19 12:10 Dose: 4 mg Documented by: Sodium Chloride (Saline Flush) 10 ml FLUSH ASDIRECTED PRN PRN Reason: Keep Vein Open Sodium Chloride (Saline Flush) 2.5 ml FLUSH ASDIRECTED PRN PRN Reason: Keep Vein Open Sodium Chloride (Normal Saline) 10 ml IV ASDIRECTED PRN PRN Reason: IV Use Sterile Water (Sterile Water For Irrigation) 1,000 ml IRR ASDIRECTED PRN PRN Reason: delivery Terbutaline Sulfate (Brethine) 0.25 mg SUBCUT ASDIRECTED PRN PRN Reason: Tacysystole - Exam General: Reports: Alert, Oriented, Cooperative, No Acute Distress Lungs: Reports: Clear to Auscultation, Normal Respiratory Effort Cardiovascular: Reports: Regular Rate, Regular Rhythm GI/Abdominal Exam: Soft, Pelvis Stable (Female) Exam: Deferred, Vaginal Bleeding Rectal (Female) Exam: Deferred Back Exam: Reports: Full Range of Motion Extremities: Normal Inspection, Non-Tender, No Pedal Edema Skin: Reports: Warm, Dry, Intact Wound/Incisions: Reports: Healing Well Neurological: Reports: No New Focal Deficit, Normal Speech, Normal Tone, Sensation Intact, Cranial Nerves Intact Psy/Mental Status: Reports: Alert, Normal Affect, Normal Mood
== END 2019-12-24 16:15 | disposition home or self-care (01) | DRG 807 ==
LOC: MW.OBCHECK 00:09 → MW.OB 00:10 → MW.OBCHECK 00:47 → OBSVTOIN 21:36 → MW.OB 12-23 00:20
PROVIDERS: ADMIT Obstetrics & Gynecology; ATTEND Obstetrics & Gynecology
PROC: 10E0XZZ Delivery of Products of Conception, External Approach (ICD-10-PCS; principal; 2019-12-22)
PROC: 3E0R3BZ Introduction of Anesthetic Agent into Spinal Canal, Percutaneous Approach (ICD-10-PCS; 2019-12-22)
PROC: 00HU03Z Insertion of Infusion Device into Spinal Canal, Open Approach (ICD-10-PCS; 2019-12-22)
PROC: 30233N1 Transfusion of Nonautologous Red Blood Cells into Peripheral Vein, Percutaneous Approach (ICD-10-PCS; 2019-12-22)
DX: O10.92 Unspecified pre-existing hypertension complicating childbirth (principal); Z37.0 Single live birth; Z3A.38 38 weeks gestation of pregnancy; O24.420 Gestational diabetes mellitus in childbirth, diet controlled; O99.824 Streptococcus B carrier state complicating childbirth; Z11.59 Encounter for screening for other viral diseases
CPT/HCPCS: 01967; 36415; 51702; 59025; 59409; 85014; 85018; 85027; 86592; 86593; 86780; 86850; 86900; 86901; A9270-GY; J0290; J0595; J2405; J2590; J7050; J7120; U0002

== ENCOUNTER 2020-01-03 13:28 | Emergency (ER) | payer MEDICAID ==
[2020-01-03] MEDS ORDERED: Sodium Chloride 0.9% 1,000 ML IV ONE ×2 (14:16→15:22)
[2020-01-03] MEDS ORDERED: Ondansetron 4 MG Tab.DIS PO ONE (14:16)
[2020-01-03] MEDS ORDERED: Morphine 4 MG/ML Syringe IVPUSH ONE (14:16)
--- NOTE | 2020-01-03 14:51 | EDM.PDOC ---
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 Patient had a normal vaginal delivery on 12/22/2019. She states there was no delivery related c omplications and up until this morning. She has had normal vaginal bleeding post delivery, and has almost stopped bleeding over the past 2 days. Patient denies any fever, chills, headache, change in vision, syncope or near syncope. Denies any chest pain, back pain, shortness of breath or cough. Denies any nausea, vomiting, diarrhea, constipation or dysuria. Has not noted any blood in urine or stool. She is currently breast-feeding. patient has been eating and drinking appropriately. Review of systems: As per history of present illness and below otherwise all systems reviewed and negative. Past medical history: As per history of present illness and as reviewed below otherwise noncontributory. Surgical history: As per history of present illness and as reviewed below otherwise noncontr ibutory. Social history: See social history for further information Family history: As per history of present illness and as reviewed below otherwise noncontributory. Physical exam: General: Well-developed and well-nourished 44-year-old female. Alert and oriented. Nontoxic-appearing and in no acute distress. HEENT: Atraumatic, normocephalic, pupils equal and reactive bilaterally, negative for conjunctival pallor or scleral icterus, mucous membranes moist, TMs normal bilaterally, throat clear, neck supple, nontender, trachea midline. No drooling or trismus noted. No meningeal signs. No hot potato voice noted. Lungs: Clear to auscultation, breath sounds equal bilaterally, chest nontender. Heart: S1S2, regular rate and rhythm without overt murmur Abdomen: Soft, nondistended, generalized tenderness in low pelvic region bilaterally. Negative for masses or hepatosplenomegaly. Negative for costovertebral tenderness. Pelvis: Stable nontender. Genitourinary: Deferred. Skin: Intact, warm, dry. No lesions or rashes noted. Extremities: Atraumatic, moves all extremities per self without difficulty or deficits, negative for cords or calf pain. Neurovascular unremarkable. Neuro: Awake, alert, oriented. Cranial nerves II through XII unremarkable. Cerebellum unremarkable. Motor and sensory unremarkable throughout. Exam nonfocal. Notes: Patient's physical exam is within normal limits with the exception of bilateral lower pelvic tenderness. She does not have any rebound tenderness. We will do some basic lab work with a septic work-up and and ultrasound of the pelvis. Patient declines pelvic exam, stating she is very sore and does not have any current bleeding. Patient does have an elevated white count with a slightly elevated lactate. Concerns for endometritis. Will start clindamycin and gentamicin. Ultrasound of the pelvis shows probable small fibroid, a hypoechoic area within the posterior uterus about 1.4 cm. Ovaries are within normal limits. The endometrial thickness is 1.2 cm which is in normal limits. Will do a CT scan for source of white count. CT shows mildly enlarged uterus which correlates with time course. No source for infection is identified. Mild steatosis of the liver. I did talk with the patient about admission which she is adamantly declining. She states that she will not be staying in the hospital as she will be returning home to be with her baby. She states she does feel improved and will follow-up closely with her VACUUM COOKER OPERATOR on Sunday. I did speak with Dr. Salazar, VACUUM COOKER OPERATOR on-call about this patient. We reviewed the patient's diagnostic results, she is comfortable with this patient being discharged with Augmentin 875 x 10 days. Repeat lactate does show the numbers trending downward, now in normal limits. Again discussed the severity with patient for need of close follow-up with her VACUUM COOKER OPERATOR. We reviewed in great length signs and symptoms that would prompt her to return to the emergency room. Supportive care measures were reviewed and discussed. Voices understanding and is agreeable to plan of care. Denies any further questions or concerns at this time. Diagnostics: CBC, CMP, UA, lactic with reflex, blood cultures x2, non-OB ultrasound Therapeutics: IV fluid, Zofran, morphine Impression: Pelvic pain, rule out endometritis Leukocytosis Plan: 1. Your white count was elevated which is concerning for infection. I did request/offer admission which was declined. Given that you will be monitoring and caring for yourself at home please take the Augmentin as directed. Continue to monitor your symptoms. If your pain worsens, fevers are consistently over 100.4F, or any new symptoms develop please return to the emergency room for admission. 2. Alternate Tylenol and ibuprofen. Increase your oral fluids and stay hydrated. 3. On Sunday please call your VACUUM COOKER OPERATOR for close follow-up, I would like you seen in the next 1 to 2 days. 4. Return to the emergency room as needed and as discussed. Definitive disposition and diagnosis as appropriate pending reevaluation and review of above. pelvic Pain Score (Numeric/FACES): 8 - Related Data Allergies Allergy/AdvReac Type Severity Reaction Status Date / Time adhesive tape Allergy Mild Rash Verified 01/03/20 14:00 latex Allergy Mild Rash Verified 01/03/20 14:00 Home Meds: Home Meds Metoprolol Tartrate [Lopressor] 25 mg PO Q12H #60 tablet 03/04/19 [Rx] Aspirin [Aspirin EC] 81 mg PO DAILY 11/20/19 [History] Pnv #30/Iron Carb&Aspg/Fa/Om3 [OB Complete with DHA Softgel] 1 tab PO DAILY 11/20/19 [History] Past Medical History - Past Health History Medical/Surgical History: Denies Medical/Surgical History HEENT History: Reports: None Cardiovascular History: Reports: Hypertension Respiratory History: Reports: Asthma, Bronchitis, Recurrent Other Respiratory History: Childhood Asthma Gastrointestinal History: Reports: None Other Gastrointestinal History: Hyperemesis Gravidarum Genitourinary History: Reports: Other (See Below) Other Genitourinary History: Bladder [place], 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, hx of kidney stones x11 VACUUM COOKER OPERATOR History: Reports: 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 History: Reports: None Neurological History: Reports: None Psychiatric History: Reports: Anxiety Endocrine/Metabolic History: Reports: Diabetes, Gestational Hematologic History: Reports: None Immunologic History: Reports: None Oncologic (Cancer) History: Reports: None Dermatologic History: Reports: None - Infectious Disease History Infectious Disease History: Reports: None - Past Surgical History Head Surgeries/Procedures: Reports: None HEENT Surgical History: Reports: None Cardiovascular Surgical History: Reports: None Respiratory Surgical History: Reports: None Female Surgical History: Reports: Other (See Below) Other Female Surgeries/Procedures: bladder sling 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 Surgical History: Reports: None Dermatological Surgical History: Reports: Other (See Below) Social & Family History - Family History Family Medical History: Noncontributory HEENT: Reports: None Cardiac: Reports: None Respiratory: Reports: None GI: Reports: None : Reports: None OBGYN: Reports: None 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: Reports: None Neurological: Reports: None Psychiatric: Reports: None Endocrine/Metabolic: Reports: None Hematologic: Reports: None Immunologic: Reports: None Dermatologic: Reports: None Oncologic: Reports: Esophageal, Lung, Non-Hodgkin's Lymphoma, Ovarian - Tobacco Use Smoking Status *Q: Current Every Day Smoker Years of Tobacco use: 30 Packs/Tins Daily: 1 - Caffeine Use Caffeine Use: Reports: Coffee, Soda Caffeine Use Comment: Reduction since hyperemesis - Recreational Drug Use Recreational Drug Use: No ED ROS GENERAL - Review of Systems Review Of Systems: Comprehensive ROS is negative, except as noted in HPI. ED EXAM, GI/ABD - Physical Exam Exam: See Below (See Dictation) Course - Vital Signs Last Recorded V/S: Last Vital Signs Temp 100.5 F 01/03/20 18:23 Pulse 107 H 01/03/20 18:23 Resp 16 01/03/20 18:23 BP 138/95 H 01/03/20 18:23 Pulse Ox 96 01/03/20 18:23 - Orders/Labs/Meds Orders: Active Orders 24 hr Category Date Time Status CULTURE BLOOD [BC] Stat Lab 01/03/20 14:20 Results CULTURE BLOOD [BC] Stat Lab 01/03/20 14:50 Received Blood Culture x2 Reflex Set [OM.PC] Stat Oth 01/03/20 14:39 Ordered Labs: Laboratory Tests 01/03/20 01/03/20 01/03/20 Range/Units 13:50 14:20 14:20 WBC 22.17 H (4.0-11.0) K/uL RBC 4.70 (4.30-5.90) M/uL Hgb 14.8 (12.0-16.0) g/dL Hct 43.1 (36.0-46.0) % MCV 91.7 (80.0-98.0) fL MCH 31.5 (27.0-32.0) pg MCHC 34.3 (31.0-37.0) g/dL RDW Std Deviation 45.4 (28.0-62.0) fl RDW Coeff of Rom 14 (11.0-15.0) % Plt Count 257 (150-400) K/uL MPV 11.10 (7.40-12.00) fL Neut % (Auto) 91.3 H (48.0-80.0) % Lymph % (Auto) 4.1 L (16.0-40.0) % [place] % (Auto) 4.0 (0.0-15.0) % Eos % (Auto) 0.4 (0.0-7.0) % Baso % (Auto) 0.2 (0.0-1.5) % Neut # (Auto) 20.2 H (1.4-5.7) K/uL Lymph # (Auto) 0.9 (0.6-2.4) K/uL [place] # (Auto) 0.9 H (0.0-0.8) K/uL Eos # (Auto) 0.1 (0.0-0.7) K/uL Baso # (Auto) 0.0 (0.0-0.1) K/uL Nucleated RBC % 0.0 /100WBC Nucleated RBCs # 0 K/uL Lactate (0.20-2.00) mmol/L Sodium 138 (136-145) mmol/L Potassium 3.6 (3.5-5.1) mmol/L Chloride 101 (98-107) mmol/L Carbon Dioxide 24.7 (21.0-32.0) mmol/L BUN 13 (7.0-18.0) mg/dL Creatinine 1.0 (0.6-1.0) mg/dL Est Cr Clr Drug Dosing 76.59 mL/min Estimated GFR (MDRD) > 60.0 ml/min Glucose 96 (74-106) mg/dL Calcium 8.6 (8.5-10.1) mg/dL Total Bilirubin 0.4 (0.2-1.0) mg/dL AST 21 (15-37) IU/L ALT 37 (14-63) IU/L Alkaline Phosphatase 113 (46-116) U/L Total Protein 7.5 (6.4-8.2) g/dL Albumin 3.4 (3.4-5.0) g/dL Globulin 4.1 H (2.6-4.0) g/dL Albumin/Globulin Ratio 0.8 L (0.9-1.6) Urine Color YELLOW Urine Appearance CLEAR Urine pH 5.5 (5.0-8.0) Ur Specific [place] 1.020 (1.001-1.035) Urine Protein NEGATIVE (NEGATIVE) mg/dL Urine Glucose (UA) NEGATIVE (NEGATIVE) mg/dL Urine Ketones NEGATIVE (NEGATIVE) mg/dL Urine Occult Blood SMALL H (NEGATIVE) Urine Nitrite NEGATIVE (NEGATIVE) Urine Bilirubin NEGATIVE (NEGATIVE) Urine Urobilinogen 0.2 (<2.0) EU/dL Ur Leukocyte Esterase NEGATIVE (NEGATIVE) Urine RBC 1-2 (0-2/HPF) Urine WBC 0-1 (0-5/HPF) Ur Epithelial Cells RARE (NONE-FEW) Urine Bacteria RARE (NEGATIVE) 01/03/20 01/03/20 Range/Units 14:20 18:43 WBC (4.0-11.0) K/uL RBC (4.30-5.90) M/uL Hgb (12.0-16.0) g/dL Hct (36.0-46.0) % MCV (80.0-98.0) fL MCH (27.0-32.0) pg MCHC (31.0-37.0) g/dL RDW Std Deviation (28.0-62.0) fl RDW Coeff of Rom (11.0-15.0) % Plt Count (150-400) K/uL MPV (7.40-12.00) fL Neut % (Auto) (48.0-80.0) % Lymph % (Auto) (16.0-40.0) % [place] % (Auto) (0.0-15.0) % Eos % (Auto) (0.0-7.0) % Baso % (Auto) (0.0-1.5) % Neut # (Auto) (1.4-5.7) K/uL Lymph # (Auto) (0.6-2.4) K/uL [place] # (Auto) (0.0-0.8) K/uL Eos # (Auto) (0.0-0.7) K/uL Baso # (Auto) (0.0-0.1) K/uL Nucleated RBC % /100WBC Nucleated RBCs # K/uL Lactate 2.1 H* 2.0 (0.20-2.00) mmol/L Sodium (136-145) mmol/L Potassium (3.5-5.1) mmol/L Chloride (98-107) mmol/L Carbon Dioxide (21.0-32.0) mmol/L BUN (7.0-18.0) mg/dL Creatinine (0.6-1.0) mg/dL Est Cr Clr Drug Dosing mL/min Estimated GFR (MDRD) ml/min Glucose (74-106) mg/dL Calcium (8.5-10.1) mg/dL Total Bilirubin (0.2-1.0) mg/dL AST (15-37) IU/L ALT (14-63) IU/L Alkaline Phosphatase (46-116) U/L Total Protein (6.4-8.2) g/dL Albumin (3.4-5.0) g/dL Globulin (2.6-4.0) g/dL Albumin/Globulin Ratio (0.9-1.6) Urine Color Urine Appearance Urine pH (5.0-8.0) Ur Specific [place] (1.001-1.035) Urine Protein (NEGATIVE) mg/dL Urine Glucose (UA) (NEGATIVE) mg/dL Urine Ketones (NEGATIVE) mg/dL Urine Occult Blood (NEGATIVE) Urine Nitrite (NEGATIVE) Urine Bilirubin (NEGATIVE) Urine Urobilinogen (<2.0) EU/dL Ur Leukocyte Esterase (NEGATIVE) Urine RBC (0-2/HPF) Urine WBC (0-5/HPF) Ur Epithelial Cells (NONE-FEW) Urine Bacteria (NEGATIVE) Meds: Medications Discontinued Medications Generic Name Dose Route Start Last Admin Trade Name Freq PRN Reason Stop Dose Admin Amoxicillin/Clavulanate Potassium 1 tab 01/03/20 18:44 01/03/20 19:10 Augmentin 875 Mg/125 Mg PO 01/03/20 18:45 1 tab ONETIME ONE Administration Sodium Chloride 1,000 mls @ 999 mls/hr 01/03/20 14:16 01/03/20 14:35 Normal Saline IV 01/03/20 15:16 999 mls/hr STAT ONE Administration Sodium Chloride 1,000 mls @ 999 mls/hr 01/03/20 15:22 01/03/20 15:54 Normal Saline IV 01/03/20 16:22 999 mls/hr STAT ONE Administration Clindamycin Phosphate 900 mg/ 50 mls @ 100 mls/hr 01/03/20 15:46 01/03/20 15:54 Premix IV 01/03/20 16:15 100 mls/hr ONETIME ONE Administration Gentamicin Sulfate 150 mg/ 103.75 mls @ 200 mls/hr 01/03/20 15:47 01/03/20 16:56 Sodium Chloride IV 01/03/20 16:18 200 mls/hr ONETIME ONE Administration Iopamidol 100 ml 01/03/20 17:49 01/03/20 17:49 Isovue-370 (76%) IVPUSH 01/03/20 17:50 100 ml ONETIME ONE Administration Ketorolac Tromethamine 30 mg 01/03/20 18:32 01/03/20 19:10 Toradol IVPUSH 01/03/20 18:33 30 mg ONETIME ONE Administration Morphine Sulfate 4 mg 01/03/20 14:16 01/03/20 14:35 Morphine IVPUSH 01/03/20 14:17 4 mg ONETIME ONE Administration Ondansetron HCl 4 mg 01/03/20 14:16 01/03/20 14:35 Zofran Odt PO 01/03/20 14:17 4 mg ONETIME ONE Administration Departure - Departure Time of Disposition: 19:21 Disposition: Home, Self-Care 01 Clinical Impression: Pelvic pain, Leukocytosis - Discharge Information Instructions: Pelvic Pain, Female Referrals: Choco Brown MD [Primary Care Provider] - Forms: ED Department Discharge Additional Instructions: The following information is given to patients seen in the emergency department who are being discharged to home. This information is to outline your options for follow-up care. We provide all patients seen in our emergency department with a follow-up referral. The need for follow-up, as well as the timing and circumstances, are variable depending upon the specifics of your emergency department visit. If you don't have a primary care physician on staff, we will provide you with a referral. We always advise you to contact your personal physician following an emergency department visit to inform them of the circumstance of the visit and for follow-up with them and/or the need for any referrals to a consulting specialist. The emergency department will also refer you to a specialist when appropriate. This referral assures that you have the opportunity for follow-up care with a specialist. All of these measure are taken in an effort to provide you with optimal care, which includes your follow-up. Under all circumstances we always encourage you to contact your private physician who remains a resource for coordinating your care. When calling for follow-up care, please make the office aware that this follow-up is from your recent emergency room visit. If for any reason you are refused follow-up, please contact the [facility] Emergency Department at and asked to speak to the emergency department charge nurse. [facility] [address] [place] [id number] [facility] [address] [place] [id number] Thank you for choosing the [facility] emergency department in [place] for your medical needs today. It was a pleasure caring for you. You were seen in the emergency department for pelvic pain post vaginal delivery. 1. Your white count was elevated which is concerning for infection. I did request/offer admission which was declined. Given that you will be monitoring and caring for yourself at home please take the Augmentin as directed. Continue to monitor your symptoms. If your pain worsens, fevers are consistently over 100.4F, or any new symptoms develop please return to the emergency room for admission. 2. Alternate Tylenol and ibuprofen. Increase your oral fluids and stay hydrated. 3. On Sunday please call your VACUUM COOKER OPERATOR for close follow-up, I would like you seen in the next 1 to 2 days. 4. Return to the emergency room as needed and as discussed. Sepsis Event Note (ED) - Evaluation Sepsis Screening Result: No Definite Risk - Focused Exam Vital Signs: Vital Signs Temp Pulse Resp BP Pulse Ox 01/03/20 18:23 100.5 F 107 H 16 138/95 H 96 01/03/20 15:55 108 H 18 145/97 H 94 L 01/03/20 14:00 96.4 F L 110 H 18 161/91 H 98 - My Orders Last 24 Hours: My Active Orders 01/03/20 14:20 CULTURE BLOOD [BC] Stat 01/03/20 14:39 Blood Culture x2 Reflex Set [OM.PC] Stat 01/03/20 14:50 CULTURE BLOOD [BC] Stat - Assessment/Plan Last 24 Hours: My Active Orders 01/03/20 14:20 CULTURE BLOOD [BC] Stat 01/03/20 14:39 Blood Culture x2 Reflex Set [OM.PC] Stat 01/03/20 14:50 CULTURE BLOOD [BC] Stat
[2020-01-03 14:54] LABS: BLOOD UREA NITROGEN,BUN 13 mg/dL (7.0-18.0); CARBON DIOXIDE,CO2 24.7 mmol/L (21.0-32.0); CHLORIDE,CL 101 mmol/L (98-107); GLUCOSE RANDOM 96 mg/dL (74-106); POTASSIUM,K 3.6 mmol/L (3.5-5.1); SODIUM,NA 138 mmol/L (136-145)
[2020-01-03] MEDS ORDERED: Clindamycin Phosphate in D5W 900 MG in Premix Bag 1 BAG IV ONE ×2 (15:46)
--- NOTE | 2020-01-03 16:01 | US ---
Pelvic ultrasound: Multiple real-time images were obtained transabdominally. Uterus is anteverted. No intrauterine gestational sac is seen. Endometrial thickness is 1.2 cm. Hypoechoic area noted within the posterior uterus measuring about 1.4 cm most likely representing a small fibroid. Ovaries appear within normal limits. No free fluid is seen. Measurements: Uterus: Length 6.1 cm, AP height 7.7 cm, transverse width 8.3 cm Right ovary: 3.0 x 1.9 cm (length could not be measured) Left ovary: 2.9 x 3.0 x 2.2 cm Impression: 1. Probable small fibroid. 2. No endometrial abnormality is seen. Endometrial thickness is 1.2 cm which is within normal limits 3. Other normal findings as noted above. Diagnostic code #2 This report was dictated in MDT
[2020-01-03] MEDS ORDERED: Iopamidol 755 Mg/ML 100 ML Bottle IVPUSH ONE (17:49)
--- NOTE | 2020-01-03 18:22 | CT ---
INDICATION: Lower abdominal pain. Recent post . Fever. COMPARISON : None. TECHNIQUE: 100 mL Isovue-370 IV contrast. FINDINGS: Mild low attenuation of liver parenchyma. Benign small cyst lateral mid to lower pole right kidney. Normal appendix. Few diverticula of the sigmoid colon. Mildly heterogeneous uterus. No significant peritoneal free fluid. No peritoneal free air. IMPRESSION: 1. Mildly enlarged uterus commensurate with time course. No definite source for infection identified. 2. Mild steatosis of the liver. Please note that all CT scans at this facility use dose modulation, iterative reconstruction, and/or weight-based dosing when appropriate to reduce radiation dose to as low as reasonably achievable. Dictated by Luis Angel Lutz MD @ Jan 03 2020 6:19PM Signed by Dr. Luis Angel Lutz @ Jan 03 2020 6:19PM
[2020-01-03] MEDS ORDERED: Ketorolac 30 MG/ML SDV IVPUSH ONE (18:32)
[2020-01-03] MEDS ORDERED: Amoxicillin/Clavulanate K 875-125 MG Tab PO ONE (18:44)
== END 2020-01-03 20:12 | disposition home or self-care (01) ==
LOC: MW.ED 13:28
DX: O90.89 Other complications of the puerperium, not elsewhere classified (principal); R10.2 Pelvic and perineal pain; O99.13 Other diseases of the blood and blood-forming organs and certain disorders involving the immune mechanism complicating the puerperium; D72.829 Elevated white blood cell count, unspecified; O99.335 Smoking (tobacco) complicating the puerperium; F17.210 Nicotine dependence, cigarettes, uncomplicated; O10.93 Unspecified pre-existing hypertension complicating the puerperium; O99.53 Diseases of the respiratory system complicating the puerperium; J45.909 Unspecified asthma, uncomplicated; Z79.899 Other long term (current) drug therapy; Z91.040 Latex allergy status; Z91.048 Other nonmedicinal substance allergy status
CPT/HCPCS: 36415; 74177; 76856; 80053; 81001; 83605; 85025; 87040; 96365; 96367; 96375; 99284; A9270; J1580; J1885; J2270; J3490; J7030; J7050; Q9967; 87077; 87186

== ENCOUNTER 2020-10-31 22:35 | Emergency (ER) | payer MEDICAID ==
[2020-10-31] MEDS ORDERED: Morphine 4 MG/ML Syringe IVPUSH ONE (23:13)
[2020-10-31] MEDS ORDERED: Sodium Chloride 0.9% 10 ML Syringe FLUSH PRN (23:13)
[2020-10-31] MEDS ORDERED: Sodium Chloride 0.9% 2.5 ML Syringe FLUSH PRN (23:13)
[2020-10-31] MEDS ORDERED: Ondansetron 4 MG/2 ML SDV IVPUSH ONE (23:13)
[2020-10-31] MEDS ORDERED: Sodium Chloride 0.9% 1,000 ML IV ONE (23:13)
--- NOTE | 2020-10-31 23:17 | EDM.PDOC ---
ED HPI GENERAL MEDICAL PROBLEM - General Chief Complaint: Abdominal Pain Stated Complaint: GALLBLADDER PAIN Time Seen by Provider: 10/31/20 22:55 Source of Information: Reports: Patient History Limitations: Reports: No Limitations - History of Present Illness INITIAL COMMENTS - FREE TEXT/NARRATIVE: 44-year-old female past medical history hypertension presents for midepigastric abdominal pain radiating to back since yesterday. Patient thinks it is her gallbladder. She states that she was at an event yesterday and had taco in a bag and afterwards developed a midepigastric abdominal pain radiating to back associated with nausea but no vomiting. She states that the pain is continued throughout the night and into today. She denies any urinary symptoms. She has a history of kidney stones and states this feels different. She has a history of bladder mesh but no other abdominal surgeries. She denies any fevers but states last night she had chills. Middle Abdomen Pain Score (Numeric/FACES): 8 - Related Data Allergies Allergy/AdvReac Type Severity Reaction Status Date / Time adhesive tape Allergy Mild Rash Verified 10/31/20 22:48 latex Allergy Mild Rash Verified 10/31/20 22:48 Home Meds: Home Meds Metoprolol Tartrate [Lopressor] 25 mg PO Q12H #60 tablet 03/04/19 [Rx] Aspirin [Aspirin EC] 81 mg PO DAILY 11/20/19 [History] Pnv #30/Iron Carb&Aspg/Fa/Om3 [OB Complete with DHA Softgel] 1 tab PO DAILY 11/20/19 [History] Famotidine [Pepcid] 20 mg PO BEDTIME #30 tab 11/01/20 [Rx] Past Medical History - Past Health History Medical/Surgical History: Denies Medical/Surgical History HEENT History: Reports: None Cardiovascular History: Reports: Hypertension Respiratory History: Reports: Asthma, Bronchitis, Recurrent Other Respiratory History: Childhood Asthma Gastrointestinal History: Reports: None Other Gastrointestinal History: Hyperemesis Gravidarum Genitourinary History: Reports: Other (See Below) Other Genitourinary History: Bladder [place], 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, hx of kidney stones x11 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: 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 History: Reports: None Neurological History: Reports: None Psychiatric History: Reports: Anxiety Endocrine/Metabolic History: Reports: Diabetes, Gestational Hematologic History: Reports: None Immunologic History: Reports: None Oncologic (Cancer) History: Reports: None Dermatologic History: Reports: None - Infectious Disease History Infectious Disease History: Reports: None - Past Surgical History Head Surgeries/Procedures: Reports: None HEENT Surgical History: Reports: None Cardiovascular Surgical History: Reports: None Respiratory Surgical History: Reports: None Female Surgical History: Reports: Other (See Below) Other Female Surgeries/Procedures: bladder sling 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 Surgical History: Reports: None Dermatological Surgical History: Reports: Other (See Below) Social & Family History - Family History Family Medical History: No Pertinent Family History HEENT: Reports: None Cardiac: Reports: None Respiratory: Reports: None GI: Reports: None : Reports: None OBGYN: Reports: None 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: Reports: None Neurological: Reports: None Psychiatric: Reports: None Endocrine/Metabolic: Reports: None Hematologic: Reports: None Immunologic: Reports: None Dermatologic: Reports: None Oncologic: Reports: Esophageal, Lung, Non-Hodgkin's Lymphoma, Ovarian - Caffeine Use Caffeine Use: Reports: Coffee, Soda Caffeine Use Comment: Reduction since hyperemesis ED ROS GENERAL - Review of Systems Review Of Systems: Comprehensive ROS is negative, except as noted in HPI. ED EXAM, GENERAL - Physical Exam Exam: See Below Exam Limited By: No Limitations General Appearance: Alert, WD/WN, No Apparent Distress Throat/Mouth: Normal Voice, No Airway Compromise Head: Atraumatic, Normocephalic Neck: Normal Inspection Respiratory/Chest: No Respiratory Distress, Lungs Clear, Normal Breath Sounds, No Accessory Muscle Use Cardiovascular: Normal Peripheral Pulses, Regular Rate, Rhythm GI/Abdominal: Soft, Non-Tender, No Distention Extremities: Normal Inspection Neurological: Alert Psychiatric: Normal Affect, Normal Mood Skin Exam: Warm, Dry, Intact, Normal Color Course - Vital Signs Last Recorded V/S: Last Vital Signs Temp 97.7 F 10/31/20 22:48 Pulse 78 11/01/20 01:16 Resp 18 11/01/20 01:16 BP 134/75 11/01/20 01:16 Pulse Ox 96 11/01/20 01:16 - Orders/Labs/Meds Orders: Active Orders 24 hr Category Date Time Status Sodium Chloride 0.9% [Saline Flush] Med 10/31/20 23:13 Active 10 ml FLUSH ASDIRECTED PRN Sodium Chloride 0.9% [Saline Flush] Med 10/31/20 23:13 Active 2.5 ml FLUSH ASDIRECTED PRN Saline Lock Insert [OM.PC] Stat Oth 10/31/20 23:13 Ordered Medication Orders Sodium Chloride (Sodium Chloride 0.9% 10 Ml Syringe) 10 ml FLUSH ASDIRECTED PRN PRN Reason: Keep Vein Open Last Admin: 10/31/20 23:53 Dose: 10 ml Documented by: HERNAN Sodium Chloride (Sodium Chloride 0.9% 2.5 Ml Syringe) 2.5 ml FLUSH ASDIRECTED PRN PRN Reason: Keep Vein Open Last Admin: 10/31/20 23:54 Dose: 2.5 ml Documented by: HERNAN Labs: Laboratory Tests 10/31/20 10/31/20 10/31/20 Range/Units 22:45 22:55 22:55 WBC 7.80 (4.0-11.0) K/uL RBC 4.76 (4.30-5.90) M/uL Hgb 15.3 (12.0-16.0) g/dL Hct 43.4 (36.0-46.0) % MCV 91.2 (80.0-98.0) fL MCH 32.1 H (27.0-32.0) pg MCHC 35.3 (31.0-37.0) g/dL RDW Std Deviation 43.5 (28.0-62.0) fl RDW Coeff of Rom 13 (11.0-15.0) % Plt Count 189 (150-400) K/uL MPV 11.30 (7.40-12.00) fL Neut % (Auto) 68.1 (48.0-80.0) % Lymph % (Auto) 16.5 (16.0-40.0) % [place] % (Auto) 13.6 (0.0-15.0) % Eos % (Auto) 1.5 (0.0-7.0) % Baso % (Auto) 0.3 (0.0-1.5) % Neut # (Auto) 5.3 (1.4-5.7) K/uL Lymph # (Auto) 1.3 (0.6-2.4) K/uL [place] # (Auto) 1.1 H (0.0-0.8) K/uL Eos # (Auto) 0.1 (0.0-0.7) K/uL Baso # (Auto) 0.0 (0.0-0.1) K/uL Nucleated RBC % 0.0 /100WBC Nucleated RBCs # 0 K/uL Sodium 139 (136-145) mmol/L Potassium 3.5 (3.5-5.1) mmol/L Chloride 103 (98-107) mmol/L Carbon Dioxide 25.2 (21.0-32.0) mmol/L BUN 12 (7.0-18.0) mg/dL Creatinine 0.9 (0.6-1.0) mg/dL Est Cr Clr Drug Dosing 85.10 mL/min Estimated GFR (MDRD) > 60.0 ml/min Glucose 136 H (74-106) mg/dL Calcium 7.8 L (8.5-10.1) mg/dL Total Bilirubin 0.2 (0.2-1.0) mg/dL AST 23 (15-37) IU/L ALT 36 (14-63) IU/L Alkaline Phosphatase 84 (46-116) U/L Total Protein 6.6 (6.4-8.2) g/dL Albumin 3.1 L (3.4-5.0) g/dL Globulin 3.5 (2.6-4.0) g/dL Albumin/Globulin Ratio 0.9 (0.9-1.6) Lipase 62 L (73-393) U/L HCG, Qual (NEG) Urine Color YELLOW Urine Appearance CLEAR Urine pH 7.0 (5.0-8.0) Ur Specific [place] 1.025 (1.001-1.035) Urine Protein NEGATIVE (NEGATIVE) mg/dL Urine Glucose (UA) NEGATIVE (NEGATIVE) mg/dL Urine Ketones NEGATIVE (NEGATIVE) mg/dL Urine Occult Blood NEGATIVE (NEGATIVE) Urine Nitrite NEGATIVE (NEGATIVE) Urine Bilirubin NEGATIVE (NEGATIVE) Urine Urobilinogen 1.0 (<2.0) EU/dL Ur Leukocyte Esterase NEGATIVE (NEGATIVE) 10/31/20 Range/Units 22:55 WBC (4.0-11.0) K/uL RBC (4.30-5.90) M/uL Hgb (12.0-16.0) g/dL Hct (36.0-46.0) % MCV (80.0-98.0) fL MCH (27.0-32.0) pg MCHC (31.0-37.0) g/dL RDW Std Deviation (28.0-62.0) fl RDW Coeff of Rom (11.0-15.0) % Plt Count (150-400) K/uL MPV (7.40-12.00) fL Neut % (Auto) (48.0-80.0) % Lymph % (Auto) (16.0-40.0) % [place] % (Auto) (0.0-15.0) % Eos % (Auto) (0.0-7.0) % Baso % (Auto) (0.0-1.5) % Neut # (Auto) (1.4-5.7) K/uL Lymph # (Auto) (0.6-2.4) K/uL [place] # (Auto) (0.0-0.8) K/uL Eos # (Auto) (0.0-0.7) K/uL Baso # (Auto) (0.0-0.1) K/uL Nucleated RBC % /100WBC Nucleated RBCs # K/uL Sodium (136-145) mmol/L Potassium (3.5-5.1) mmol/L Chloride (98-107) mmol/L Carbon Dioxide (21.0-32.0) mmol/L BUN (7.0-18.0) mg/dL Creatinine (0.6-1.0) mg/dL Est Cr Clr Drug Dosing mL/min Estimated GFR (MDRD) ml/min Glucose (74-106) mg/dL Calcium (8.5-10.1) mg/dL Total Bilirubin (0.2-1.0) mg/dL AST (15-37) IU/L ALT (14-63) IU/L Alkaline Phosphatase (46-116) U/L Total Protein (6.4-8.2) g/dL Albumin (3.4-5.0) g/dL Globulin (2.6-4.0) g/dL Albumin/Globulin Ratio (0.9-1.6) Lipase (73-393) U/L HCG, Qual NEGATIVE (NEG) Urine Color Urine Appearance Urine pH (5.0-8.0) Ur Specific [place] (1.001-1.035) Urine Protein (NEGATIVE) mg/dL Urine Glucose (UA) (NEGATIVE) mg/dL Urine Ketones (NEGATIVE) mg/dL Urine Occult Blood (NEGATIVE) Urine Nitrite (NEGATIVE) Urine Bilirubin (NEGATIVE) Urine Urobilinogen (<2.0) EU/dL Ur Leukocyte Esterase (NEGATIVE) Meds: Medications Generic Name Dose Route Start Last Admin Trade Name Maryam PRN Reason Stop Dose Admin Sodium Chloride 10 ml 10/31/20 23:13 10/31/20 23:53 Sodium Chloride 0.9% 10 Ml Syringe FLUSH 10 ml ASDIRECTED PRN Administration Keep Vein Open Sodium Chloride 2.5 ml 10/31/20 23:13 10/31/20 23:54 Sodium Chloride 0.9% 2.5 Ml Syringe FLUSH 2.5 ml ASDIRECTED PRN Administration Keep Vein Open Discontinued Medications Generic Name Dose Route Start Last Admin Trade Name Kenyq PRN Reason Stop Dose Admin Sodium Chloride 1,000 mls @ 999 mls/hr 10/31/20 23:13 10/31/20 23:53 Normal Saline IV 11/01/20 00:13 999 mls/hr .Bolus ONE Administration Iopamidol 100 ml 11/01/20 00:43 11/01/20 00:43 Iopamidol 755 Mg/Ml 500 Ml Multipack Bottle IVPUSH 11/01/20 00:44 100 ml ONETIME STA Administration Morphine Sulfate 4 mg 10/31/20 23:13 10/31/20 23:53 Morphine 4 Mg/Ml Syringe IVPUSH 10/31/20 23:14 4 mg ONETIME ONE Administration Ondansetron HCl 4 mg 10/31/20 23:13 10/31/20 23:55 Ondansetron 4 Mg/2 Ml Sdv IVPUSH 10/31/20 23:14 4 mg ONETIME ONE Administration - Re-Assessments/Exams Free Text/Narrative Re-Assessment/Exam: 10/31/20 23:17 We will treat pain symptomatically. Will get labs and imaging. Will follow up results and disposition accordingly. 11/01/20 01:46 Patient is feeling much better. CT imaging and labs are all unremarkable. Recommend follow-up with primary care physician further work-up and management. Will discharge patient with short course of symptomatic relief medications. Return precautions discussed. Departure - Departure Time of Disposition: 01:47 Disposition: Home, Self-Care 01 Condition: Good Clinical Impression: Abdominal pain Qualifiers: Abdominal location: epigastric Qualified Code(s): R10.13 - Epigastric pain - Discharge Information Prescriptions: Famotidine [Pepcid] 20 mg PO BEDTIME #30 tab Instructions: Abdominal Pain, Adult, [id number] Referrals: Padmini Mccloud NP [Primary Care Provider] - Forms: ED Department Discharge Additional Instructions: Your labs and imaging were unremarkable. I definitely recommend following up with your primary care physician for further work-up. If your pain gets as bad as it was tonight then you are encouraged to come back to the emergency department for reassessment. The following information is given to patients seen in the emergency department who are being discharged to home. This information is to outline your options for follow-up care. We provide all patients seen in our emergency department with a follow-up referral. The need for follow-up, as well as the timing and circumstances, are variable depending upon the specifics of your emergency department visit. If you don't have a primary care physician on staff, we will provide you with a referral. We always advise you to contact your personal physician following an emergency department visit to inform them of the circumstance of the visit and for follow-up with them and/or the need for any referrals to a consulting sp ecialist. The emergency department will also refer you to a specialist when appropriate. This referral assures that you have the opportunity for follow-up care with a specialist. All of these measure are taken in an effort to provide you with optimal care, which includes your follow-up. Under all circumstances we always encourage you to contact your private physician who remains a resource for coordinating your care. When calling for follow-up care, please make the office aware that this follow-up is from your recent emergency room visit. If for any reason you are refused follow-up, please contact the [facility] Emergency Department at and asked to speak to the emergency department charge nurse. Please follow up with your primary care physician. If you do not have a primary care physician, see below: [facility] [address] [place] [phone] [facility] [address] [place], [place] [address] [facility] [address] [place] [address] Sepsis Event Note (ED) - Evaluation Sepsis Screening Result: No Definite Risk - Focused Exam Vital Signs: Vital Signs Temp Pulse Resp BP Pulse Ox 11/01/20 01:16 78 18 134/75 96 10/31/20 22:48 97.7 F 100 17 150/104 H 95 - My Orders Last 24 Hours: My Active Orders 10/31/20 23:13 Sodium Chloride 0.9% [Saline Flush] 10 ml FLUSH ASDIRECTED PRN Sodium Chloride 0.9% [Saline Flush] 2.5 ml FLUSH ASDIRECTED PRN Saline Lock Insert [OM.PC] Stat - Assessment/Plan Last 24 Hours: My Active Orders 10/31/20 23:13 Sodium Chloride 0.9% [Saline Flush] 10 ml FLUSH ASDIRECTED PRN Sodium Chloride 0.9% [Saline Flush] 2.5 ml FLUSH ASDIRECTED PRN Saline Lock Insert [OM.PC] Stat
[2020-10-31 23:41] LABS: BLOOD UREA NITROGEN,BUN 12 mg/dL (7.0-18.0); CARBON DIOXIDE,CO2 25.2 mmol/L (21.0-32.0); CHLORIDE,CL 103 mmol/L (98-107); GLUCOSE RANDOM 136 mg/dL (74-106); LIPASE 62 U/L (73-393); POTASSIUM,K 3.5 mmol/L (3.5-5.1); SODIUM,NA 139 mmol/L (136-145)
[2020-11-01] MEDS ORDERED: Iopamidol 755 MG/ML 500 ML Multipack Bottle IVPUSH STA (00:43)
--- NOTE | 2020-11-01 01:43 | CT ---
INDICATION: Epigastric and right upper quadrant abdominal pain. CT ABDOMEN AND PELVIS WITH CONTRAST TECHNIQUE: Multidetector CT imaging was performed through the abdomen and pelvis following intravenous contrast administration using 100 mL Isovue 370. Coronal and sagittal reconstructions were generated. COMPARISON: 01/03/2020 CT abdomen and pelvis. FINDINGS: Lower chest: Lung bases are clear. Liver: Diffuse fatty infiltration of the liver. Gallbladder and bile ducts: No gallbladder wall thickening or calcified gallstones. No biliary dilation identified. Pancreas: Unremarkable. Spleen: Normal. Adrenals: No nodules or masses. Kidneys, ureters, and urinary bladder: Unchanged small cortical cyst of the lateral mid right kidney. No hydronephrosis involving either kidney. No bladder mass or definite wall thickening. Gastrointestinal tract: Normal caliber small bowel without wall thickening. The appendix is normal. There are multiple colon diverticula, most numerous in the sigmoid, without evidence of diverticulitis. Vascular structures: Normal caliber abdominal aorta with trace atherosclerotic calcification. Peritoneum: No free air, abscess, or significant free fluid. Lymph nodes: No pathologically enlarged nodes identified. Reproductive organs: No pelvic masses. Bones: Normal for age. IMPRESSION: 1. No acute abnormality identified. No cause for the patient`s symptoms is demonstrated. 2. Nonacute additional findings as detailed above. KARIE MAGALLANES MD [employer] Dictated by Dario Magallanes MD @ 11/01/2020 1:38:58 AM Dictated by: Dario Magallanes MD @ 11/01/2020 01:41:36 (Electronically Signed)
== END 2020-11-01 02:06 | disposition home or self-care (01) ==
LOC: MW.ED 22:35
DX: R10.13 Epigastric pain (principal); I10 Essential (primary) hypertension; J45.909 Unspecified asthma, uncomplicated; Z79.82 Long term (current) use of aspirin; Z79.899 Other long term (current) drug therapy; Z91.048 Other nonmedicinal substance allergy status; Z91.040 Latex allergy status
CPT/HCPCS: 36415; 74177; 80053; 81003; 83690; 84703; 85025; 96374; 96375; 99284; J2270; J2405; J7030; Q9967

== ENCOUNTER 2021-01-27 16:14 | Emergency (ER) | payer MEDICAID ==
[2021-01-27] MEDS ORDERED: Sodium Chloride 0.9% 1,000 ML IV ONE (19:12)
[2021-01-27 19:52] LABS: BLOOD UREA NITROGEN,BUN 16 mg/dL (7.0-18.0); CARBON DIOXIDE,CO2 27.9 mmol/L (21.0-32.0); CHLORIDE,CL 100 mmol/L (98-107); GLUCOSE RANDOM 85 mg/dL (74-106); POTASSIUM,K 3.9 mmol/L (3.5-5.1); SODIUM,NA 136 mmol/L (136-145)
--- NOTE | 2021-01-27 20:10 | EDM.PDOC ---
ED HPI GENERAL MEDICAL PROBLEM - General Chief Complaint: ENT Problem Stated Complaint: FEELS LIKE SOME THING STUCK IN THROAT Time Seen by Provider: 01/27/21 19:07 Source of Information: Reports: Patient History Limitations: Reports: No Limitations - History of Present Illness INITIAL COMMENTS - FREE TEXT/NARRATIVE: HISTORY AND PHYSICAL: History of present illness: Patient is a 45-year-old female who presents to the emergency room with complaints of throat pain and sensation of foreign body to her distal esophagus. She states it is painful to swallow and at times feels like food and fluids are getting stuck. She voices concern as her father had esophageal cancer. Patient denies any fever, chills, headache, change in vision, syncope or near syncope. Denies any chest pain, back pain, shortness of breath or cough. Denies any abdominal pain, nausea, vomiting, diarrhea, constipation or dysuria. Has not noted any blood in urine or stool. Patient has been eating and drinking appropriately. Review of systems: As per history of present illness and below otherwise all systems reviewed and negative. Past medical history: As per history of present illness and as reviewed below otherwise noncontributory. Surgical history: As per history of present illness and as reviewed below otherwise noncontributory. Social history: See social history for further information Family history: As per history of present illness and as reviewed below otherwise noncontributory. Physical exam: General: Well developed and well nourished. Alert and orientated x 3. Nontoxic in appearance and in no acute distress. Vital signs are stable and have been reviewed by me. Nursing notes were reviewed. HEENT: Atraumatic, normocephalic, pupils equal and reactive bilaterally, negati ve for conjunctival pallor or scleral icterus, mucous membranes moist, TMs normal bilaterally, throat erythematous without exudate or pillar shifting, neck supple, nontender, trachea midline. No drooling or trismus noted. No meningeal signs. No hot potato voice noted. Lungs: Clear to auscultation bilaterally. No wheezes, rales, or rhonchi. Chest nontender. Normal work of breathing, no accessory muscles used. Heart: S1S2, regular rate and rhythm without overt murmur, gallops, or rubs. No JVD. No peripheral edema Abdomen: Soft, nondistended, nontender. Normoactive bowel sounds. Negative for masses or costovertebral tenderness. Pelvis: Stable nontender. Genitourinary/Rectal: Deferred. Skin: Intact, warm, dry. No lesions or rashes noted. Hematologic: No petechiae or purpra. Mucosa appropriate color and normal nail bed color and refill. Extremities: Atraumatic, moves all extremities per self without difficulty or deficits, negative for cords or calf pain. Neurovascular unremarkable. Neuro: Awake, alert, oriented. Cranial nerves II through XII unremarkable. Cerebellum unremarkable. Motor and sensory unremarkable throughout. Exam nonfocal. Psychiatric: Mood and affect are appropriate. Normal thought process. Answering questions appropriately. Notes: *This patient was seen and evaluated during the 2019 SARS-CoV-2 novel coronavirus pandemic period. Community viral transmission is ongoing at time of this encounter and the emergency department is operating under pandemic response procedures. Patient is a 45-year-old female who presents to the emergency room with complaints of sore throat and sensation of foreign body. She states she is paranoid as she does have a familial history of cancers, on both her mother and father side. She is a daily smoker. States she had an EGD approximately 20 years ago, normal. She is able to swallow, speak clearly and has no difficulty breathing. Vital signs are stable. Physical exam is unremarkable other than erythema of the posterior oropharynx. No neck masses are identified. There is an upper normal sized right jugulodigastric lymph node and scattered smaller nodes throughout the neck. There is no fluid collection suggestive of an abscess. The included airway is within normal limits. No radiopaque foreign body is seen. The parotid and submandibular glands are unremarkable. The thyroid is unremarkable aside from an 8 millimeter hypodense nodule or cyst in the mid left thyroid lobe and 11 millimeter calcified nodule in the lower pole of the left thyroid lobe. Cervical vascular structures are within normal limits. There are minor degenerative changes in the cervical spine. Included paranasal sinuses are clear aside from trace mucosal thickening in the inferior maxillary sinuses. Included skull base and lung apices are unremarkable. I have talked with the patient about today's findings, in addition to providing specific details for plan of care. Reassessment at the time of disposition demonstrates that the patient is in no acute distress. The patient is stable for discharge, counseling was provided and we discussed in great detail signs and symptoms that would prompt them to return to the Emergency Department. She states she will call tomorrow to set up an appointment with her primary care provider, Padmini Mccloud. I also gave her general surgeries follow-up information for possible EGD in the future. Medicat ion, follow up and supportive care measures were reviewed and discussed. Voices understanding and is agreeable to plan of care. Denies any further questions or concerns at this time. Diagnostics: CBC, CMP, soft tissue neck Therapeutics: Augmentin Prescription: Augmentin, miracle mouthwash Impression: Pharyngitis Thyroid nodule, incidental finding Plan: 1. You were evaluated today on an emergent basis. Your CT shows an incidental finding of a nodule or cyst on your thyroid, I would like you to follow-up with your primary care provider to have this further evaluated. Symptoms persist I would like you to follow-up with general surgeon as you may need an EGD at some point. Take the medications as prescribed 2. You can alternate Tylenol and ibuprofen as needed for pain and fever manage ment. 3. If your symptoms should worsen, new symptoms develop or any of the signs and symptoms we discussed should arise please return to the emergency room or call 911 (if needed). Definitive disposition and diagnosis as appropriate pending reevaluation and review of above. - Related Data Allergies Allergy/AdvReac Type Severity Reaction Status Date / Time adhesive tape Allergy Mild Rash Verified 10/31/20 22:48 latex Allergy Mild Rash Verified 10/31/20 22:48 Home Meds: Home Meds Metoprolol Tartrate [Lopressor] 25 mg PO Q12H #60 tablet 03/04/19 [Rx] Aspirin [Aspirin EC] 81 mg PO DAILY 11/20/19 [History] Pnv #30/Iron Carb&Aspg/Fa/Om3 [OB Complete with DHA Softgel] 1 tab PO DAILY 11/20/19 [History] Famotidine [Pepcid] 20 mg PO BEDTIME #30 tab 11/01/20 [Rx] Amoxicillin/Clavulanate K [Augmentin 875-125 MG] 1 tab PO BID 7 Days #14 tablet 01/27/21 [Rx] Past Medical History - Past Health History Medical/Surgical History: Denies Medical/Surgical History HEENT History: Reports: None Cardiovascular History: Reports: Hypertension Respiratory History: Reports: Asthma, Bronchitis, Recurrent Other Respiratory History: Childhood Asthma Gastrointestinal History: Reports: None Other Gastrointestinal History: Hyperemesis Gravidarum Genitourinary History: Reports: Other (See Below) Other Genitourinary History: Bladder [place], 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, hx of kidney stones x11 [employer] RO[employer] 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 History: Reports: 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 History: Reports: None Neurological History: Reports: None Psychiatric History: Reports: Anxiety Endocrine/Metabolic History: Reports: Diabetes, Gestational Hematologic History: Reports: None Immunologic History: Reports: None Oncologic (Cancer) History: Reports: None Dermatologic History: Reports: None - Infectious Disease History Infectious Disease History: Reports: None - Past Surgical History Head Surgeries/Procedures: Reports: None HEENT Surgical History: Reports: None Cardiovascular Surgical History: Reports: None Respiratory Surgical History: Reports: None GI Surgical History: Reports: None Female Surgical History: Reports: Other (See Below) Other Female Surgeries/Procedures: bladder sling Endocrine Surgical History: Reports: None Neurological Surgical History: Reports: None 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 Surgical History: Reports: None Oncologic Surgical History: Reports: None Dermatological Surgical History: Reports: Other (See Below) Social & Family History - Family History Family Medical History: No Pertinent Family History HEENT: Reports: None Cardiac: Reports: None Respiratory: Reports: None GI: Reports: None : Reports: None OBGYN: Reports: None 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: Reports: None Neurological: Reports: None Psychiatric: Reports: None Endocrine/Metabolic: Reports: None Hematologic: Reports: None Immunologic: Reports: None Dermatologic: Reports: None Oncologic: Reports: Esophageal, Lung, Non-Hodgkin's Lymphoma, Ovarian - Caffeine Use Caffeine Use: Reports: Coffee Caffeine Use Comment: Reduction since hyperemesis ED ROS ENT - Review of Systems Review Of Systems: Comprehensive ROS is negative, except as noted in HPI. ED EXAM, ENT - Physical Exam Exam: See Below (See dictation) Course - Vital Signs Last Recorded V/S: Last Vital Signs Temp 96.3 F L 01/27/21 16:57 Pulse 82 01/27/21 16:57 Resp 18 01/27/21 16:57 BP 168/107 H 01/27/21 16:57 Pulse Ox 100 01/27/21 16:57 - Orders/Labs/Meds Labs: Laboratory Tests 01/27/21 01/27/21 Range/Units 19:20 19:20 WBC 14.18 H (4.0-11.0) K/uL RBC 4.93 (4.30-5.90) M/uL Hgb 15.7 (12.0-16.0) g/dL Hct 44.3 (36.0-46.0) % MCV 89.9 (80.0-98.0) fL MCH 31.8 (27.0-32.0) pg MCHC 35.4 (31.0-37.0) g/dL RDW Std Deviation 43.8 (28.0-62.0) fl RDW Coeff of Rom 13 (11.0-15.0) % Plt Count 228 (150-400) K/uL MPV 11.80 (7.40-12.00) fL Neut % (Auto) 64.3 (48.0-80.0) % Lymph % (Auto) 26.3 (16.0-40.0) % [place] % (Auto) 8.0 (0.0-15.0) % Eos % (Auto) 1.1 (0.0-7.0) % Baso % (Auto) 0.3 (0.0-1.5) % Neut # (Auto) 9.1 H (1.4-5.7) K/uL Lymph # (Auto) 3.7 H (0.6-2.4) K/uL [place] # (Auto) 1.1 H (0.0-0.8) K/uL Eos # (Auto) 0.2 (0.0-0.7) K/uL Baso # (Auto) 0.0 (0.0-0.1) K/uL Nucleated RBC % 0.0 /100WBC Nucleated RBCs # 0 K/uL Sodium 136 (136-145) mmol/L Potassium 3.9 (3.5-5.1) mmol/L Chloride 100 (98-107) mmol/L Carbon Dioxide 27.9 (21.0-32.0) mmol/L BUN 16 (7.0-18.0) mg/dL Creatinine 0.8 (0.6-1.0) mg/dL Est Cr Clr Drug Dosing 94.76 mL/min Estimated GFR (MDRD) > 60.0 ml/min Glucose 85 (74-106) mg/dL Calcium 8.7 (8.5-10.1) mg/dL Total Bilirubin 0.4 (0.2-1.0) mg/dL AST 21 (15-37) IU/L ALT 51 (14-63) IU/L Alkaline Phosphatase 91 (46-116) U/L Total Protein 7.5 (6.4-8.2) g/dL Albumin 3.9 (3.4-5.0) g/dL Globulin 3.6 (2.6-4.0) g/dL Albumin/Globulin Ratio 1.1 (0.9-1.6) Meds: Medications Discontinued Medications Generic Name Dose Route Start Last Admin Trade Name Freq PRN Reason Stop Dose Admin Amoxicillin/Clavulanate Potassium 1 tab 01/27/21 21:11 Amoxicillin/Clavulanate K 875-125 Mg Tab PO 01/27/21 21:12 ONETIME ONE Sodium Chloride 1,000 mls @ 999 mls/hr 01/27/21 19:12 Normal Saline IV 01/27/21 20:12 STAT ONE Departure - Departure Time of Disposition: 21:13 Disposition: Home, Self-Care 01 Clinical Impression: Thyroid nodule Pharyngitis Qualifiers: Pharyngitis/tonsillitis etiology: unspecified etiology Qualified Code(s): J02.9 - Acute pharyngitis, unspecified - Discharge Information Prescriptions: Amoxicillin/Clavulanate K [Augmentin 875-125 MG] 1 tab PO BID 7 Days #14 tablet Instructions: Pharyngitis, Trha-ps-Rrea Referrals: Padmini Mccloud NP [Primary Care Provider] - Forms: ED Department Discharge Additional Instructions: The following information is given to patients seen in the emergency department who are being discharged to home. This information is to outline your options for follow-up care. We provide all patients seen in our emergency department with a follow-up referral. The need for follow-up, as well as the timing and circumstances, are variable depending upon the specifics of your emergency department visit. If you don't have a primary care physician on staff, we will provide you with a referral. We always advise you to contact your personal physician following an emergency department visit to inform them of the circumstance of the visit and for follow-up with them and/or the need for any referrals to a consulting specialist. The emergency department will also refer you to a specialist when appropriate. This referral assures that you have the opportunity for follow-up care with a specialist. All of these measure are taken in an effort to provide you with optimal care, which includes your follow-up. Under all circumstances we always encourage you to contact your private physician who remains a resource for coordinating your care. When calling for follow-up care, please make the office aware that this follow-up is from your recent emergency room visit. If for any reason you are refused follow-up, please contact the [facility] Emergency Department at and asked to speak to the emergency department charge nurse. [facility] [address] [place] [id number] [facility] [address] [place] [id number] Thank you for choosing the [facility] emergency department in [place] for your medical needs today. It was a pleasure caring for you. Today you were seen in the emergency department for throat pain. 1. You were evaluated today on an emergent basis. Your CT shows an incidental finding of a nodule or cyst on your thyroid, I would like you to follow-up with your primary care provider to have this further evaluated. Symptoms persist I would like you to follow-up with general surgeon as you may need an EGD at some point. Take the medications as prescribed 2. You can alternate Tylenol and ibuprofen as needed for pain and fever management. 3. If your symptoms should worsen, new symptoms develop or any of the signs and symptoms we discussed should arise please return to the emergency room or call 911 (if needed). Sepsis Event Note (ED) - Focused Exam Vital Signs: Vital Signs Temp Pulse Resp BP Pulse Ox 01/27/21 16:57 96.3 F L 82 18 168/107 H 100
--- NOTE | 2021-01-27 21:07 | CT ---
INDICATION: Foreign body/choking sensation. CT NECK WITH CONTRAST TECHNIQUE: Axial multidetector CT imaging was performed through the neck following intravenous contrast administration using 75 mL Isovue 370. Coronal and sagittal reconstructions were generated. FINDINGS: No neck masses are identified. There is an upper normal sized right jugulodigastric lymph node and scattered smaller nodes throughout the neck. There is no fluid collection suggestive of an abscess. The included airway is within normal limits. No radiopaque foreign body is seen. The parotid and submandibular glands are unremarkable. The thyroid is unremarkable aside from an 8 millimeter hypodense nodule or cyst in the mid left thyroid lobe and 11 millimeter calcified nodule in the lower pole of the left thyroid lobe. Cervical vascular structures are within normal limits. There are minor degenerative changes in the cervical spine. Included paranasal sinuses are clear aside from trace mucosal thickening in the inferior maxillary sinuses. Included skull base and lung apices are unremarkable. IMPRESSION: 1. No radiopaque foreign body identified. No cause for the patient`s symptoms is evident. 2. Incidental nonacute findings as noted above. KARIE MAGALLANES MD [facility] Dictated by Dario Magallanes MD @ 01/27/2021 9:04:26 PM Please note that all CT scans at this facility use dose modulation, iterative reconstruction, and/or weight-based dosing when appropriate to reduce radiation dose to as low as reasonably achievable. Dictated by: Dario Magallanes MD @ 01/27/2021 21:05:14 (Electronically Signed)
[2021-01-27] MEDS ORDERED: Amoxicillin/Clavulanate K 875-125 MG Tab PO ONE (21:11)
[2021-01-27] MEDS ORDERED: Iopamidol 755 Mg/ML 100 ML Bottle IVPUSH ONE (21:18)
== END 2021-01-27 21:29 | disposition home or self-care (01) ==
LOC: MW.ED 16:14
DX: J02.9 Acute pharyngitis, unspecified (principal); E04.1 Nontoxic single thyroid nodule; I10 Essential (primary) hypertension; Z91.040 Latex allergy status; Z91.048 Other nonmedicinal substance allergy status; Z79.82 Long term (current) use of aspirin
CPT/HCPCS: 36415; 70491; 80053; 85025; 99283; A9270; Q9967

== ENCOUNTER 2021-03-08 10:55 | Day surgery (SDC) | payer MEDICAID ==
[~2021-03-08 10:55] MED LIST: Lactated Ringers 1,000 ML IV SCH; Sodium Chloride 0.9% 10 ML SDV IV PRN; Sodium Chloride 0.9% 10 ML Syringe FLUSH PRN; Sodium Chloride 0.9% 2.5 ML Syringe FLUSH PRN
--- NOTE | 2021-03-08 12:32 | PCM.PREANE ---
Preanesthetic Assessment - Procedure Proposed Procedure: EGD - Anesthesia/Transfusion/Family Hx Anesthesia History: Prior Anesthesia Without Reaction Family History of Anesthesia Reaction: No Transfusion History: No Prior Transfusion(s) - Review of Systems General: No Symptoms Pulmonary: No Symptoms (Asthma) Cardiovascular: No Symptoms (HTN) Gastrointestinal: Other (Dysphagia) Neurological: No Symptoms (h/o Migraines) Other: Reports: None (h/o kidney stones), Thyroid Problems (thyroid nodules), Depression, Anxiety - Physical Assessment NPO Status Date: 03/07/21 NPO Status Time: 22:00 (Solids, >4 hr Liq) Height: 5 ft 9 in Weight: 111.13 kg (Obesity) ASA Class: 2 Mental Status: Alert & Oriented x3 Airway Class: Mallampati = 3 Dentition: Reports: Normal Dentition Thyro-Mental Finger Breadths: 3 Mouth Opening Finger Breadths: 3 ROM/Head Extension: Full Lungs: Clear to Auscultation, Normal Respiratory Effort Cardiovascular: Regular Rate, Regular Rhythm - Lab Values: Laboratory Last Values Urine HCG, Qual NEGATIVE (NEGATIVE) 03/08/21 11:05 - Allergies Allergies/Adverse Reactions: Allergies Allergy/AdvReac Type Severity Reaction Status Date / Time adhesive tape Allergy Mild Rash Verified 03/02/21 10:08 latex Allergy Mild Rash Verified 03/02/21 10:08 - Acknowledgements Anesthesia Type Planned: General Anesthesia Pt an Appropriate Candidate for the Planned Anesthesia: Yes Alternatives and Risks of Anesthesia Discussed w Pt/Guardian: Yes Pt/Guardian Understands and Agrees with Anesthesia Plan: Yes PreAnesthesia Questionnaire - Past Health History Medical/Surgical History: Denies Medical/Surgical History HEENT History: Reports: None Cardiovascular History: Reports: Hypertension Other Cardiovascular History: recently changed from Metoprolol to Lisinopril for better BP control Respiratory History: Reports: Asthma Other Respiratory History: exercised induced asthma in high school- no inhaler or symptoms since then Gastrointestinal History: Reports: Other (See Below) Other Gastrointestinal History: dysphagia, hx of Hyperemesis during Genitourinary History: Reports: Renal Calculus Other Genitourinary History: hx of passing 11 kidney stones [employer] History: Reports: Hyperemesis, Other OB/BYN History: hx of hypertension during 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 History: Reports: Fracture Other 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 History: hx of crushed sternum and fx left arm Neurological History: Reports: Migraines Other Neuro History: hx of migraines in her 20's from [facility] Psychiatric History: Reports: Anxiety, Depression Other Psychiatric History: not currently taking any medications Endocrine/Metabolic History: Reports: Obesity/BMI 30+, Other (See Below) Other Endocrine/Metabolic History: recently diagnosed with 2 thyroid nodules Hematologic History: Reports: None Immunologic History: Reports: None Oncologic (Cancer) History: Reports: None Dermatologic History: Reports: Other (See Below) Other Dermatologic History: very dry skin - Infectious Disease History Infectious Disease History: Reports: None - Past Surgical History Head Surgeries/Procedures: Reports: None HEENT Surgical History: Reports: Other (See Below) Other HEENT Surgeries/Procedures: cleaning of neucrotic tissue on forhead from spider bite Cardiovascular Surgical History: Reports: None Respiratory Surgical History: Reports: Other (See Below) Other Respiratory Surgeries/Procedures: hx of "crushed sternum" at age 15- no surgical repair GI Surgical History: Reports: EGD Female Surgical History: Reports: Cervical Cryotherapy, Tubal Ligation, Other (See Below) Other Female Surgeries/Procedures: bladder sling Endocrine Surgical History: Reports: None Neurological Surgical History: Reports: None 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 Surgical History: Reports: None Oncologic Surgical History: Reports: None - SUBSTANCE USE Tobacco Use Status *Q: Current Every Day Tobacco User Tobacco Use Within Last Twelve Months: Cigarettes Recreational Drug Use History: Yes Recreational Drug Type: Reports: Marijuana/Hashish - HOME MEDS Home Medications: Home Meds Pantoprazole Sodium [Protonix] 40 mg PO DAILY 03/02/21 [History] lisinopriL [Lisinopril] 20 mg PO ACLUNCH 03/02/21 [History] - CURRENT (IN HOUSE) MEDS Current Meds: Current Medications Lactated Ringer's (Ringers, Lactated) 1,000 mls @ 125 mls/hr IV ASDIRECTED ALENA Sodium Chloride (Sodium Chloride 0.9% 10 Ml Syringe) 10 ml FLUSH ASDIRECTED PRN PRN Reason: Keep Vein Open Sodium Chloride (Sodium Chloride 0.9% 2.5 Ml Syringe) 2.5 ml FLUSH ASDIRECTED PRN PRN Reason: Keep Vein Open Sodium Chloride (Sodium Chloride 0.9% 10 Ml Syringe) 10 ml FLUSH ASDIRECTED PRN PRN Reason: Keep Vein Open Sodium Chloride (Sodium Chloride 0.9% 2.5 Ml Syringe) 2.5 ml FLUSH ASDIRECTED PRN PRN Reason: Keep Vein Open Sodium Chloride (Sodium Chloride 0.9% 10 Ml Sdv) 10 ml IV ASDIRECTED PRN PRN Reason: IV Use
[2021-03-08] MEDS ORDERED: Lidocaine 2% 5 ML SDV ONE (13:56)
[2021-03-08] MEDS ORDERED: Propofol 200 MG/20 ML SDV ONE (13:56)
--- NOTE | 2021-03-08 14:22 | PCM.OPNOTE ---
- General Post-Op/Procedure Note Date of Surgery/Procedure: 03/08/21 Operative Procedure(s): Diagnostic EGD Findings: tiny hiatal hernia Pre Op Diagnosis: Dysphagia Post-Op Diagnosis: Hiatal hernia Anesthesia Technique: ERICA Primary Surgeon: Juliana Ratliff Condition: Good
--- NOTE | 2021-03-08 14:28 | PCM.POSTAN ---
POST ANESTHESIA ASSESSMENT - MENTAL STATUS Mental Status: Alert, Oriented - VITAL SIGNS Vital Signs: Last Vital Signs Temp 97.7 F 03/08/21 12:38 Pulse 79 03/08/21 12:38 Resp 16 03/08/21 12:38 BP 145/72 H 03/08/21 12:38 Pulse Ox 97 03/08/21 12:38 - RESPIRATORY Respiratory Status: Respiratory Rate WNL, Airway Patent, O2 Saturation Stable - CARDIOVASCULAR CV Status: Pulse Rate WNL, Blood Pressure Stable - GASTROINTESTINAL GI Status: No Symptoms - PAIN Pain Score: 0 - POST OP HYDRATION Hydration Status: Adequate & Stable
--- NOTE | 2021-03-08 14:31 | PCM48HPAN ---
Post Anesthesia Note - EVALUATION WITHIN 48HRS OF ANESTHETIC Vital Signs in Normal Range: Yes Patient Participated in Evaluation: Yes Respiratory Function Stable: Yes Airway Patent: Yes Cardiovascular Function Stable: Yes Hydration Status Stable: Yes Pain Control Satisfactory: Yes Nausea and Vomiting Control Satisfactory: Yes Mental Status Recovered: Yes Vital Signs: Last Vital Signs Temp 97.7 F 03/08/21 12:38 Pulse 79 03/08/21 12:38 Resp 16 03/08/21 12:38 BP 145/72 H 03/08/21 12:38 Pulse Ox 97 03/08/21 12:38 - COMMENTS/OBSERVATIONS Free Text/Narrative:: Pt doing well post-op. VSS. No apparent anesthetic complications. Dr. Elier Mccann
--- NOTE | 2021-03-08 16:19 | OR ---
SURGEON: JULIANA RATLIFF MD DATE OF PROCEDURE: 03/08/2021 PREOPERATIVE DIAGNOSIS: Dysphagia. POSTOPERATIVE DIAGNOSIS: Hiatal hernia. PROCEDURE PERFORMED: Diagnostic esophagogastroduodenoscopy with biopsy. PRIMARY SURGEON: Juliana Ratliff MD ANESTHESIA: MAC. INSTRUMENT USED: Olympus endoscope. EXTENT OF EXAM: To the second portion of duodenum. PREPARATION: Good. LIMITATIONS: None. INDICATIONS FOR EXAMINATION: The patient is a 45-year-old female who presented with dysphagia to my clinic. She underwent an esophagram that showed mild distal esophageal dysmotility with no evidence of a hiatal hernia or reflux. The patient is currently on a PPI. The decision was made to proceed with diagnostic EGD. I explained the procedure to the patient, the expected perioperative course, and the risks including bleeding, infection, or damage to surrounding structures. The patient verbalized understanding and wishes to proceed. PROCEDURE IN DETAIL: The patient was brought in to the endoscopy suite and placed in a beach chair position. A time-out was completed verifying the patient's name, age, date of , allergies, and procedure to be performed. Monitored anesthesia care was induced and a bite block was placed in the patient's mouth. Continuous oxygen was provided via face mask throughout the procedure. After adequate sedation was achieved, a well-lubricated endoscope was placed in the patient's mouth and advanced under direct visualization to the second portion of duodenum. This appeared normal and a photograph was taken. The scope was then fully withdrawn while examining the color, texture, anatomy, and integrity of the mucosa of the upper GI tract. The duodenum appeared normal. A biopsy was taken within the duodenal bulb and sent to Pathology for histologic review. The scope was brought into the stomach and a photograph was taken of the pylorus and GE junction. The gastric mucosa appeared free of inflammation or ulceration. Biopsies were taken of the gastric antrum, body, and fundus and sent for histologic review and H pylori testing. The scope was then brought into the distal esophagus. The patient was noted to have a very small hiatal hernia with just a couple of centimeters of the stomach up in the chest. A photograph was taken of this. The Z-line appeared normal. A biopsy was taken 1 cm above the Z- line and sent to Pathology labeled as esophagus for histologic review. There were no signs of distal esophagitis. The remainder of the esophagus was normal. The scope was removed and the procedure terminated. The patient tolerated the procedure well and was transferred to the PACU in stable condition. ENDOSCOPIC DIAGNOSIS: Hiatal hernia. RECOMMENDATIONS: Continue her PPI. We will follow up on the results of the biopsies in two weeks in clinic. AURELIO KOHLER /[id number]
== END 2021-03-08 14:47 | disposition home or self-care (01) ==
LOC: MW.SDS 10:55
PROVIDERS: ATTEND Surgery
DX: R13.10 Dysphagia, unspecified (principal); K44.9 Diaphragmatic hernia without obstruction or gangrene; E66.9 Obesity, unspecified; I10 Essential (primary) hypertension; G43.909 Migraine, unspecified, not intractable, without status migrainosus; J45.909 Unspecified asthma, uncomplicated; F17.210 Nicotine dependence, cigarettes, uncomplicated; Z91.040 Latex allergy status; Z98.890 Other specified postprocedural states; Z68.36 Body mass index [BMI] 36.0-36.9, adult; Z79.899 Other long term (current) drug therapy; Z01.812 Encounter for preprocedural laboratory examination; Z20.822 Contact with and (suspected) exposure to COVID-19
CPT/HCPCS: 43239; 81025; 87635; 88305; 88342; J2704; J7120; 00731; U0002

== ENCOUNTER 2022-04-23 19:35 | Emergency (ER) | payer MEDICAID ==
[2022-04-23] MEDS ORDERED: Sodium Chloride 0.9% 1,000 ML IV ONE (19:47)
[2022-04-23] MEDS ORDERED: diphenhydrAMINE 50 MG/ML SDV IVPUSH ONE (19:47)
[2022-04-23] MEDS ORDERED: methylPREDNISolone Sodium Succinate 125 MG/2 ML SDV IVPUSH ONE (19:47)
[2022-04-23] MEDS ORDERED: diphenhydrAMINE 50 MG/ML SDV ONE (19:47)
[2022-04-23] MEDS ORDERED: methylPREDNISolone Sodium Succinate 125 MG/2 ML SDV ONE (19:47)
== END 2022-04-23 20:36 | disposition home or self-care (01) ==
LOC: MW.ED 19:35
DX: L50.9 Urticaria, unspecified (principal); I10 Essential (primary) hypertension; J45.909 Unspecified asthma, uncomplicated; E66.9 Obesity, unspecified; Z68.32 Body mass index [BMI] 32.0-32.9, adult; Z91.048 Other nonmedicinal substance allergy status; Z91.040 Latex allergy status
CPT/HCPCS: 96361; 96374; 96375; 99283; J1200; J2930; J7030

== ENCOUNTER 2023-04-10 21:29 | Emergency (ER) | payer MEDICAID | END 2023-04-10 22:31 | disposition left against medical advice (07) | LOC: MW.ED 21:29 | DX: Z53.21 Procedure and treatment not carried out due to patient leaving prior to being seen by health care provider (principal) ==

== ENCOUNTER 2023-04-11 10:25 | Emergency (ER) | payer BC, MEDICAID ==
[2023-04-11] MEDS ORDERED: Sodium Chloride 0.9% 2.5 ML Syringe FLUSH PRN (10:43)
[2023-04-11] MEDS ORDERED: Sodium Chloride 0.9% 10 ML Syringe FLUSH PRN (10:43)
[2023-04-11 10:54] LABS: BASOPHILS ABSOLUTE AUTO 0.07 K/uL (0.00-0.20); BASOPHILS PERCENT AUTO 0.9 % (0.0-1.0); EOSINOPHILS PERCENT AUTO 2.5 % (0.0-6.0); HEMATOCRIT 44.6 % (37.0-47.0); HEMOGLOBIN 15.7 g/dL (12.0-16.0); IMMATURE GRAN ABSOLUTE AUTO 0.01 K/uL (0.00-0.05); IMMATURE GRAN PERCENT AUTO 0.1 % (0.0-0.4); LYMPHOCYTES ABSOLUTE AUTO 2.55 K/uL (1.00-4.80); LYMPHOCYTES PERCENT AUTO 31.4 % (24.0-44.0); MEAN CORPUSCULAR HEMOGLOBIN 31.5 pg (28.0-32.0); MEAN CORPUSCULAR HGB CONC 35.2 g/dL (32.0-36.0); MEAN CORPUSCULAR VOLUME 89.4 fL (83.0-99.0); MEAN PLATELET VOLUME 10.9 fL (9.4-12.3); MONOCYTES PERCENT AUTO 7.4 % (0.0-8.0); NEUTROPHILS ABSOLUTE AUTO 4.68 K/uL (1.80-7.70); NEUTROPHILS PERCENT AUTO 57.7 % (41.0-71.0); PLATELET COUNT,PLT 227 K/uL (150-400); RED BLOOD CELL COUNT 4.99 M/uL (4.10-5.30); WHITE BLOOD CELL COUNT,WBC 8.11 K/uL (3.9-11.3)
[2023-04-11] MEDS ORDERED: hydrALAZINE 20 MG/ML SDV IVPUSH STA (11:10)
[2023-04-11] MEDS ORDERED: Ketorolac 30 MG/ML SDV IVPUSH STA (11:10)
[2023-04-11] MEDS ORDERED: Acetaminophen 500 MG Tab PO STA (11:10)
[2023-04-11 11:28] LABS: ALBUMIN 3.7 g/dL (3.4-5.0); BILIRUBIN TOTAL 0.4 mg/dL (0.2-1.0); CALCIUM 9.4 mg/dL (8.5-10.1); CARBON DIOXIDE,CO2 29.3 mmol/L (21.0-32.0); EST CRCL DRUG DOSING (CG) 71.67 mL/min; POTASSIUM,K 3.8 mmol/L (3.5-5.1); PROTEIN TOTAL,TP 7.3 g/dL (6.4-8.2)
[2023-04-11 11:31] LABS: CORONAVIRUS COVID-19 NAA NEGATIVE (NEGATIVE); INFLUENZA A NAA NEGATIVE (NEGATIVE); INFLUENZA B NAA NEGATIVE (NEGATIVE)
[2023-04-11 11:43] LABS: APPEARANCE,URINE CLEAR; BILIRUBIN,URINE NEGATIVE (NEGATIVE); COLOR,URINE YELLOW; GLUCOSE,URINE NEGATIVE (NEGATIVE); KETONES,URINE NEGATIVE (NEGATIVE); LEUKOCYTE ESTERASE,URINE NEGATIVE (NEGATIVE); NITRITE,URINE NEGATIVE (NEGATIVE); OCCULT BLOOD,URINE NEGATIVE (NEGATIVE); PROTEIN,URINE NEGATIVE (NEGATIVE); UROBILINOGEN,URINE 0.2 EU/dL (<2.0)
[2023-04-11] MEDS ORDERED: Lisinopril 10 MG Tab PO STA (12:07)
== END 2023-04-11 13:15 | disposition home or self-care (01) ==
LOC: MW.ED 10:25
DX: I10 Essential (primary) hypertension (principal); D32.9 Benign neoplasm of meninges, unspecified; F17.210 Nicotine dependence, cigarettes, uncomplicated; J45.909 Unspecified asthma, uncomplicated; E66.9 Obesity, unspecified; Z68.33 Body mass index [BMI] 33.0-33.9, adult; Z91.048 Other nonmedicinal substance allergy status; Z91.040 Latex allergy status; Z79.899 Other long term (current) drug therapy; Z20.822 Contact with and (suspected) exposure to COVID-19
CPT/HCPCS: 0240U; 36415; 70450; 71046; 80053; 81003; 81025; 83690; 83735; 84484; 85025; 93005; 96374; 96375; 99284; A9270; J0360; J1885; J3490; 93010

== ENCOUNTER 2024-08-14 18:24 | Emergency (ER) | payer BC, MEDICAID ==
[2024-08-14 19:06] LABS: BASOPHILS ABSOLUTE AUTO 0.03 K/uL (0.00-0.20); BASOPHILS PERCENT AUTO 0.3 % (0.0-1.0); EOSINOPHILS ABSOLUTE AUTO 0.16 K/uL (0.00-0.45); EOSINOPHILS PERCENT AUTO 1.5 % (0.0-6.0); HEMOGLOBIN 16.5 g/dL (12.0-16.0); IMMATURE GRAN ABSOLUTE AUTO 0.03 K/uL (0.00-0.05); IMMATURE GRAN PERCENT AUTO 0.3 % (0.0-0.4); LYMPHOCYTES ABSOLUTE AUTO 1.16 K/uL (1.00-4.80); LYMPHOCYTES PERCENT AUTO 10.9 % (24.0-44.0); MEAN CORPUSCULAR HEMOGLOBIN 31.7 pg (28.0-32.0); MEAN CORPUSCULAR HGB CONC 35.1 g/dL (32.0-36.0); MEAN CORPUSCULAR VOLUME 90.4 fL (83.0-99.0); MEAN PLATELET VOLUME 11.6 fL (9.4-12.3); MONOCYTES ABSOLUTE AUTO 0.64 K/uL (0.00-0.80); NEUTROPHILS ABSOLUTE AUTO 8.64 K/uL (1.80-7.70); PLATELET COUNT,PLT 203 K/uL (150-400); WHITE BLOOD CELL COUNT,WBC 10.66 K/uL (3.9-11.3)
[2024-08-14 19:19] LABS: A/G RATIO 1.1 (0.9-1.6); ALBUMIN 3.8 g/dL (3.4-5.0); BILIRUBIN TOTAL 0.6 mg/dL (0.2-1.0); CARBON DIOXIDE,CO2 28.1 mmol/L (21.0-32.0); CREATININE 0.9 mg/dL (0.6-1.0); EST CRCL DRUG DOSING (CG) 84.46 mL/min; POTASSIUM,K 4.1 mmol/L (3.5-5.1); PROTEIN TOTAL,TP 7.2 g/dL (6.4-8.2)
[2024-08-14 20:08] LABS: BILIRUBIN,URINE NEGATIVE (NEGATIVE); COLOR,URINE YELLOW; GLUCOSE,URINE NEGATIVE (NEGATIVE); KETONES,URINE TRACE mg/dL (NEGATIVE); LEUKOCYTE ESTERASE,URINE TRACE (NEGATIVE); NITRITE,URINE NEGATIVE (NEGATIVE); OCCULT BLOOD,URINE TRACE-INTACT (NEGATIVE); PH,URINE 5.5 (5.0-8.0); PROTEIN,URINE NEGATIVE (NEGATIVE); UROBILINOGEN,URINE 0.2 EU/dL (<2.0)
[2024-08-14 20:13] LABS: APPEARANCE,URINE HAZY
[2024-08-14 20:22] LABS: AMORPHOUS SEDIMENT,URINE FEW (NEGATIVE); BACTERIA,URINE FEW (NEGATIVE); EPITHELIAL CELLS,URINE MODERATE (NONE-FEW); RBC,URINE 0-2 (0-2/HPF)
[2024-08-14] MEDS: Alum Hydrox/Mag Hydrox/Simeth 15 ML, Metoclopramide 5 MG, Lidocaine 2% 5 ML PO STA (20:30)
[2024-08-14] MEDS: Ondansetron 4 MG Tab.DIS PO STA (20:55)
== END 2024-08-14 21:19 | disposition home or self-care (01) ==
LOC: MW.ED 18:24
DX: R10.13 Epigastric pain (principal); F17.210 Nicotine dependence, cigarettes, uncomplicated; Z91.040 Latex allergy status; Z91.048 Other nonmedicinal substance allergy status; Z79.899 Other long term (current) drug therapy; W00.0XXA Fall on same level due to ice and snow, initial encounter; Y93.89 Activity, other specified
CPT/HCPCS: 36415; 71046; 80053; 81001; 83690; 84484; 84703; 85025; 87086; 93005; 99284; A9270; 93010